=== PATIENT | male | born 1955 | race Caucasian/White ===

== ENCOUNTER 2017-02-05 01:10 | Emergency (ER) | payer OTHER ==
[~2017-02-05] VITALS: Ht 165.1 cm; Wt 68.2 kg
[~2017-02-05 01:10] MED LIST: ATEN-175 PO; CYAN1CAP3 PO; DOXA-10 PO; FLUO0.059 TOP; FLUT1POW8 NAE; NAPR-1169 PO; TGR200 PO
[2017-02-05 01:17] VITALS: TEMP 36.6; Ht 165.1 cm; Wt 68.2 kg
[2017-02-05] MEDS ORDERED: ONDANSETRON INJ 2 MG/ML 2 ML VIAL IV STA ×2 (01:44→03:47)
[2017-02-05] MEDS ORDERED: MoRPHine SULFATE 4 MG/ML 1 ML CARP\\VIAL IV PRN (01:45)
[2017-02-05] MEDS ORDERED: SODIUM CHLORIDE 0.9% 1000ML 1,000 ML IV ONE (01:45)
[2017-02-05] MEDS ORDERED: OPTIRAY 320 IV PRN (02:00)
[2017-02-05 02:17] LABS: BASO % 0.1 %; BASO ABS # 0.01 K/uL (0-0.2); COMPLETE YES; EOS % 0.7 %; HEMATOCRIT 38.4 % (42-52); IG% 0.1 %; LYMPH % 17.8 %; MEAN CELL VOLUME 87.9 fL (80-100); MEAN CORPUSCULAR HEMOGLOBIN 30.4 pg (25-34); MEAN CORPUSCULAR HGB CONC 34.6 g/dl (32-36); MEAN PLATELET VOLUME 8.5 fL (7.4-10.4); NEUT % 75.3 %; PLATELET COUNT 249 K/uL (130-400); RED BLOOD COUNT 4.37 M/uL (4.7-6.1); WHITE BLOOD COUNT 7.32 K/uL (4.8-10.8)
[2017-02-05 02:18] LABS: URINE APPEARANCE CLOUDY (CLEAR); URINE BILIRUBIN NEG (NEG); URINE COLOR YELLOW; URINE EPITHELIAL CELL AUTO 0-5 /lpf (0-5); URINE NITRITE NEG (NEG); URINE PH >= 9.0 (4.5-7.5); URINE SPECIFIC GRAVITY 1.021 (1.000-1.030); UROBILINOGEN NEG (NEG); ZZUR CULT IF INDIC CLEAN CATCH NO
[2017-02-05 02:24] LABS: MANUAL MICROSCOPIC REQUIRED? NO; REVIEW REQ? NO
[2017-02-05 02:39] LABS: BUN/CREATININE RATIO 22.6 (10-20); CALCIUM 8.7 mg/dl (8.5-10.1); CREATININE 0.63 mg/dl (0.60-1.40); POTASSIUM 3.9 mmol/L (3.5-5.1)
[2017-02-05 02:42] LABS: ALB/GLOB RATIO 1.2 (0.9-2)
[2017-02-05] MEDS ORDERED: ONDANSETRON INJ 2 MG/ML 2 ML VIAL ONE (03:48)
[2017-02-05] MEDS ORDERED: FEXO1TAB49 PO (04:42)
[2017-02-05] MEDS ORDERED: ZNTT/150 PO (04:42)
[2017-02-05] MEDS ORDERED: FLNIN/ NAE (04:45)
[2017-02-05 06:00] VITALS: BP 147/78; PULSE 70; O2SAT 95
[2017-02-05] MEDS ORDERED: NORCO 5/325MG HOME PACK PO ONE (06:15)
[2017-02-05] MEDS ORDERED: ONDANSETRON HOME PACK 4MG OD TAB PO ONE (06:15)
--- NOTE | 2017-02-05 09:32 | DIAGNOSTIC IMAGING REPORT ---
CT OF THE ABDOMEN AND PELVIS WITH CONTRAST CLINICAL HISTORY: Periumbilical abdominal pain. COMPARISON STUDY: None. TECHNIQUE: Following IV administration of 93 mL of Optiray-320, axial images of the abdomen and pelvis were obtained from the lung bases to the proximal femurs. Images were reviewed in the axial, sagittal, and coronal planes. IV contrast was administered without complication. A dose lowering technique was utilized adhering to the principles of ALARA. CT DOSE: 299.80 mGy.cm FINDINGS: The liver, spleen, adrenal glands, left kidney and pancreas are normal. There is no biliary or pancreatic ductal dilatation. Note is made of a 3.5 cm cyst within the mid aspect of the right renal collecting system. There is no hydronephrosis. The appendix is not visualized. The prostate is markedly enlarged and indents the base of the bladder. There is mild distention of the bladder with mild bladder wall thickening. There is no evidence for a bowel obstruction. Caliber and wall thickness of small and large bowel are normal. No suspicious osseous lesions are present. There is grade I/II anterolisthesis of L5 on S1 due to bilateral L5 pars defects. IMPRESSION: 1. No acute process within the abdomen or pelvis. 2. Marked enlargement of the prostate which indents the base of the bladder. Mild bladder distention and bladder wall thickening which can be correlated with urinalysis. Electronically signed by: Evens Armstrong M.D. 02/05/2017 9:31 AM Dictated Date/Time: 02/05/2017 9:27 AM
--- NOTE | 2017-02-06 03:01 | EMERGENCY ROOM VISIT NOTE ---
History First contact with patient: : Chief Complaint: GI ASSESSMENT Stated Complaint: VOMITING,DIARRHEA,HIGH BLOOD PRESSURE,SHAKING Nursing Triage Summary: pt here with son as retail assistant, denies need to retail assistant pad. son translates that pt began with abd pain yesterday AM, pain intermittent, pt eventually began to have vomiting and diarrhea. History of Present Illness The patient is a 61 year old male who presents to the Emergency Room with complaints of generalized periumbilical abdominal pain that began worsening about 18 hours ago. The patient states the pain is intermittent and developed into nausea and vomiting. The patient has not had diarrhea or constipation. He is accompanied to the department today with his son who is acting as the retail assistant. The patient has not had fever or chills at home. He does have a history of enlarged prostate but is otherwise healthy. He believes he has been urinating as normal. The patient rates his discomfort a 9/10. No history of abdominal surgery. Review of Systems More than 10 systems were reviewed and otherwise negative with the exception of history of present illness. Past Medical/Surgical History Medical Problems: (1) Hypertension (2) Seizures Family History Cancer Heart disease Hypertension Seizures Social History Smoking Status: Never Smoker Alcohol Use: none Drug Use: none Marital Status: Housing Status: lives with family Occupation Status: unemployed Current/Historical Medications Scheduled Atenolol (Tenormin), 100 MG PO DAILY Carbamazepine (Carbamazepine), 300 MG PO TID Cyanocobalamin (B-12), 1,000 MCG PO DAILY Doxazosin Mesylate (Doxazosin Mesylate), 8 MG PO HS Fluticasone Propionate (Fluticasone Propionate), 2 SPRAYS SHANELLE BID Ranitidine (Zantac), 150 MG PO DAILY Scheduled PRN Fexofenadine Hcl (Erinn Allergy), 180 MG PO DAILY PRN for ALLERGIC REACTION Naproxen (Naprosyn), 500 MG PO BID PRN for Pain Physical Exam Vital Signs Date Time Temp Pulse Resp B/P (MAP) Pulse Ox O2 Delivery O2 Flow Rate FiO2 02/05/17 06:00 70 18 147/78 95 Room Air 02/05/17 04:00 69 18 137/73 95 Room Air 02/05/17 03:00 69 18 145/82 96 Room Air 02/05/17 02:31 79 18 161/87 95 Room Air 02/05/17 01:17 36.6 73 20 141/82 99 Room Air Pain Rating (0-10): 0 Physical Exam VITALS: Vitals are noted on the nurse's note and reviewed by myself. Vital signs stable. GENERAL: Well-developed, well-nourished, white male, who is in no acute distress and resting comfortably. Patient is cooperative with the examination. HEAD: Normocephalic atraumatic. HEART: Regular rate and rhythm without murmurs gallops or rubs. LUNGS: Clear to auscultation bilaterally without wheezes, rales or rhonchi. No retractions or accessory muscle use. ABDOMEN: Positive normal bowel sounds x 4. Soft with generalized midabdominal tenderness on palpation. No distinct point tenderness. No rebound or guarding. No CVA tenderness. MUSCULOSKELETAL: No muscle atrophy, erythema, or edema noted. Full range of motion without joint tenderness in all extremities. Medical Decision & Procedures ER Provider Diagnostic Interpretation: CT OF THE ABDOMEN AND PELVIS WITH CONTRAST CLINICAL HISTORY: Periumbilical abdominal pain. COMPARISON STUDY: None. TECHNIQUE: Following IV administration of 93 mL of Optiray-320, axial images of the abdomen and pelvis were obtained from the lung bases to the proximal femurs. Images were reviewed in the axial, sagittal, and coronal planes. IV contrast was administered without complication. A dose lowering technique was utilized adhering to the principles of ALARA. CT DOSE: 299.80 mGy.cm FINDINGS: The liver, spleen, adrenal glands, left kidney and pancreas are normal. There is no biliary or pancreatic ductal dilatation. Note is made of a 3.5 cm cyst within the mid aspect of the right renal collecting system. There is no hydronephrosis. The appendix is not visualized. The prostate is markedly enlarged and indents the base of the bladder. There is mild distention of the bladder with mild bladder wall thickening. There is no evidence for a bowel obstruction. Caliber and wall thickness of small and large bowel are normal. No suspicious osseous lesions are present. There is grade I/II anterolisthesis of L5 on S1 due to bilateral L5 pars defects. IMPRESSION: 1. No acute process within the abdomen or pelvis. 2. Marked enlargement of the prostate which indents the base of the bladder. Mild bladder distention and bladder wall thickening which can be correlated with urinalysis. Laboratory Results 02/05/17 02:06 Red Blood Count 4.37, Mean Corpuscular Volume 87.9, Mean Corpuscular Hemoglobin 30.4, Mean Corpuscular Hemoglobin Concent 34.6, Mean Platelet Volume 8.5, Neutrophils (%) (Auto) 75.3, Lymphocytes (%) (Auto) 17.8, Monocytes (%) (Auto) 6.0, Eosinophils (%) (Auto) 0.7, Basophils (%) (Auto) 0.1, Neutrophils # (Auto) 5.51, Lymphocytes # (Auto) 1.30, Monocytes # (Auto) 0.44, Eosinophils # (Auto) 0.05, Basophils # (Auto) 0.01 02/05/17 02:06 Test 02/05/17 02:00 02/05/17 02:06 Urine Color YELLOW Urine Appearance CLOUDY (CLEAR) Urine pH >= 9.0 (4.5-7.5) Urine Specific [place] 1.021 (1.000-1.030) Urine Protein NEG (NEG) Urine Glucose (UA) NEG (NEG) Urine Ketones NEG (NEG) Urine Occult Blood NEG (NEG) Urine Nitrite NEG (NEG) Urine Bilirubin NEG (NEG) Urine Urobilinogen NEG (NEG) Urine Leukocyte Esterase NEG (NEG) Urine WBC (Auto) 0 /hpf (0-5) Urine RBC (Auto) 0-4 /hpf (0-4) Urine Hyaline Casts (Auto) 0 /lpf (0-5) Urine Epithelial Cells (Auto) 0-5 /lpf (0-5) Urine Bacteria (Auto) NEG (NEG) White Blood Count 7.32 K/uL (4.8-10.8) Red Blood Count 4.37 M/uL (4.7-6.1) Hemoglobin 13.3 g/dL (14.0-18.0) Hematocrit 38.4 % (42-52) Mean Corpuscular Volume 87.9 fL (80-100) Mean Corpuscular Hemoglobin 30.4 pg (25-34) Mean Corpuscular Hemoglobin Concent 34.6 g/dl (32-36) Platelet Count 249 K/uL (130-400) Mean Platelet Volume 8.5 fL (7.4-10.4) Neutrophils (%) (Auto) 75.3 % Lymphocytes (%) (Auto) 17.8 % Monocytes (%) (Auto) 6.0 % Eosinophils (%) (Auto) 0.7 % Basophils (%) (Auto) 0.1 % Neutrophils # (Auto) 5.51 K/uL (1.4-6.5) Lymphocytes # (Auto) 1.30 K/uL (1.2-3.4) Monocytes # (Auto) 0.44 K/uL (0.11-0.59) Eosinophils # (Auto) 0.05 K/uL (0-0.5) Basophils # (Auto) 0.01 K/uL (0-0.2) RDW Standard Deviation 41.2 fL (36.4-46.3) RDW Coefficient of Variation 12.8 % (11.5-14.5) Immature Granulocyte % (Auto) 0.1 % Immature Granulocyte # (Auto) 0.01 K/uL (0.00-0.02) Anion Gap 6.0 mmol/L (3-11) Est Creatinine Clear Calc Drug Dose 105.8 ml/min Estimated GFR () 122.4 Estimated GFR (Non- 105.6 BUN/Creatinine Ratio 22.6 (10-20) Calcium Level 8.7 mg/dl (8.5-10.1) Total Bilirubin 0.3 mg/dl (0.2-1) Aspartate Amino Transf (AST/SGOT) 12 U/L (15-37) Alanine Aminotransferase (ALT/SGPT) 18 U/L (12-78) Alkaline Phosphatase 100 U/L (45-117) Total Protein 7.2 gm/dl (6.4-8.2) Albumin 3.9 gm/dl (3.4-5.0) Globulin 3.3 gm/dl (2.5-4.0) Albumin/Globulin Ratio 1.2 (0.9-2) Lipase 244 U/L (73-393) Medications Administered Medications (Trade) Dose Ordered Sig/Debbie Route Start Time Stop Time Status Last Admin Dose Admin Morphine Sulfate (MoRPHine SULFATE INJ) 4 mg Q1H PRN IV 02/05/17 01:45 02/05/17 06:36 DC 02/05/17 02:28 4 MG Sodium Chloride 1,000 ml @ 999 mls/hr Q1H1M ONCE IV 02/05/17 01:45 02/05/17 02:45 DC 02/05/17 02:27 999 MLS/HR Ondansetron HCl (Zofran Inj) 4 mg NOW STAT IV 02/05/17 01:44 02/05/17 01:46 DC 02/05/17 02:27 4 MG Ondansetron HCl (Zofran Inj) 4 mg STK-MED ONCE .ROUTE 02/05/17 03:48 02/05/17 03:49 DC 02/05/17 03:51 4 MG Acetaminophen/ Hydrocodone Bitart ([place] 5/325mg Home Pack) 1 homepack UD ONCE PO 02/05/17 06:15 02/05/17 06:16 DC 02/05/17 06:14 1 HOMEPACK Ondansetron HCl (ZOFRAN ODT 4MG Home Pack) 1 homepack UD ONCE PO 02/05/17 06:15 02/05/17 06:16 DC 02/05/17 06:14 1 HOMEPACK ED Course Physical exam and history were performed. Nursing notes, EMR, and Medication List were personally reviewed. Patient appears to have abdominal pain with nausea and vomiting. The patient does have some generalized periumbilical abdominal tenderness on examination. IV access was established and labs were obtained. The patient was hydrated and medicated as above. CT scan was performed because of the patient's reproducible tenderness of the abdomen. The patient's blood work is as above and was reviewed. He does not have significant elevated white blood cell count, worsening anemia, bandemia, or significant electrolyte imbalance. Lipase and transaminases were nondiagnostic. Urine is without obvious signs of infection. The patient CT scan is as above and does not show significant intra-abdominal process. He does have an enlarged prostate and may have some urinary retention. The patient underwent bladder scan which showed a post voiding residual of greater than 340 ML's. As this could be contributed to the patient's discomfort I did ask nursing to perform a straight cath. This was performed and right around 200 ML's of urine was collected. This did not improve or worsen in the patient's discomfort. Overall the patient had significant improvement of his discomfort after the above interventions. Considering that he has normal labs and a normal CT scan I suspect that his symptoms may be viral or foodborne in nature. I will give the patient a small amount of Vicodin and Zofran to help with his symptoms. The patient will need to follow with his primary care physician for further care and management. I also recommended that he follow with his urologist regarding his enlarged prostate. The patient was pleased with this plan and was comfortable with discharge home. He will return with any worsening symptoms. He rated his discomfort a 0/10 at the time of departure. The chart was completed utilizing [employer] Speech Voice Recognition Software. Grammatical errors, random word insertions, pronoun errors, and incomplete sentences are an occasional consequence of this system due to software limitations, ambient noise, and hardware issues. Any formal questions or concerns about the content, text, or information contained within the body of this dictation should be directly addressed to the provider for clarification. . Medical Decision Differential diagnosis: Etiologies such as appendicitis, diverticulitis, PUD, biliary pathology, UTI, pancreatitis, obstruction, mesenteric ischemia, aortic pathology, infections, inflammatory bowel disease, renal colic, as well as others were entertained. Medication Reconcilliation Current Medication List: was personally reviewed by me Blood Pressure Screening Patient's blood pressure: Normal blood pressure Impression Primary Impression: Nausea and vomiting Additional Impressions: Enlarged prostate Abdominal pain Departure Information Dispostion Home / Self-Care Condition GOOD Forms HOME CARE DOCUMENTATION FORM, IMPORTANT VISIT INFORMATION Patient Instructions My [facility] Additional Instructions You were seen and evaluated today on an emergency basis only. This is not a substitute for, or an effort to provide, complete comprehensive medical care. It is not possible to recognize and treat all injuries or illnesses in a single emergency department visit. For this reason it is recommended that you followup with both your primary care physician and your urologist next week for ongoing care and evaluation. Call today to help schedule your appointments. Drink plenty of fluids and remain well hydrated. [place] (hydrocodone/acetaminophen) 5/325 mg (homepack) ONE pill by mouth every 6 hours as needed for worsening breakthrough pain. Do not drink or drive on [place]. This medication will likely make you tired. Do not take [place] and Tylenol at the same time as both contain acetaminophen. [place] may cause constipation. You may wish to take an [id number] stool softener like Colace if this occurs. Zofran 1 tablet every 6 hrs as needed for nausea. You are welcome to return to the emergency department anytime with new, worsening, or concerning symptoms. Problem Qualifiers
== END 2017-02-05 06:17 | disposition home or self-care (01) ==
LOC: C.EDB 01:12
DX: R11.2 Nausea with vomiting, unspecified (principal); N40.0 Benign prostatic hyperplasia without lower urinary tract symptoms; R10.33 Periumbilical pain; I10 Essential (primary) hypertension; Z86.69 Personal history of other diseases of the nervous system and sense organs; Z82.49 Family history of ischemic heart disease and other diseases of the circulatory system; Z82.0 Family history of epilepsy and other diseases of the nervous system; Z79.899 Other long term (current) drug therapy

== ENCOUNTER 2017-08-02 16:11 | Emergency (ER) | payer OTHER ==
[~2017-08-02] VITALS: Ht 165.1 cm; Wt 67.0 kg
[~2017-08-02 16:11] MED LIST changes: +FEXO1TAB49 PO; +FLNIN/ NAE; -FLUO0.059 TOP; -FLUT1POW8 NAE; +ZNTT/150 PO
[2017-08-02 16:13] VITALS: TEMP 36.6; Ht 165.1 cm; Wt 67.0 kg
[2017-08-02] MEDS ORDERED: CIPROFLOXACIN 500 MG TAB PO STA (17:57)
[2017-08-02] MEDS ORDERED: TAMSULOSIN HCL 0.4 MG CAP PO ONE (18:00)
[2017-08-02] MEDS ORDERED: CIPR-255 PO (18:04)
[2017-08-02 18:20] VITALS: BP 162/88; PULSE 76; O2SAT 98
--- NOTE | 2017-08-02 19:50 | EMERGENCY ROOM VISIT NOTE ---
History Report prepared by Jo: Genaro Denny Under the Supervision of: Dr. Nahun Lima D.O. First contact with patient: 16:16 Chief Complaint: URINARY SYMPTOMS Stated Complaint: URINARY PROBLEMS History of Present Illness The patient is a 62 year old male who presents to the Emergency Room with complaints of persistent difficulty with urination beginning 12.5 hours ago. History obtained via hasher operator (patient's son). He was able to void a very small amount just prior to arrival. He has a history of urinary retention. The patient has not noticed any blood in his urine. He is currently on Prednisone and an antibiotic for a cough. He has not taken any over the counter medications recently. Pt denies abdominal pain, headache, change in vision, fevers, chest pain, shortness of breath, nausea, vomiting, diarrhea, pain with urination, and melena. Source of History: patient Onset: 12.5 hours ago Quality: other (difficulty with urination) Timing: other (persistent) Associated Symptoms: + cough, No fevers, No headache, No chest pain, No SOB , No nausea, No vomiting, No abdominal pain, No melena, No diarrhea Review of Systems See HPI for pertinent positives & negatives. A total of 10 systems reviewed and were otherwise negative. Past Medical & Surgical Medical Problems: (1) Hypertension (2) Seizures Family History Cancer Heart disease Hypertension Seizures Social History Smoking Status: Never Smoker Alcohol Use: none Drug Use: none Marital Status: Housing Status: lives with family Occupation Status: unemployed Current/Historical Medications Scheduled Atenolol (Tenormin), 100 MG PO DAILY Carbamazepine (Carbamazepine), 300 MG PO TID Ciprofloxacin Hcl (Cipro), 500 MG PO BID Cyanocobalamin (B-12), 1,000 MCG PO DAILY Doxazosin Mesylate (Doxazosin Mesylate), 8 MG PO HS Fluticasone Propionate (Fluticasone Propionate), 2 SPRAYS SHANELLE BID Ranitidine (Zantac), 150 MG PO DAILY Scheduled PRN Fexofenadine Hcl (Erinn Allergy), 180 MG PO DAILY PRN for ALLERGIC REACTION Naproxen (Naprosyn), 500 MG PO BID PRN for Pain Allergies Coded Allergies: [place] (Verified Allergy, Unknown, ORANGE JUICE, 08/02/17) Physical Exam Vital Signs Date Time Temp Pulse Resp B/P (MAP) Pulse Ox O2 Delivery O2 Flow Rate FiO2 1/16/18 18:20 76 20 162/88 98 Room Air 08/02/17 17:30 74 16 168/90 97 Room Air 08/02/17 16:13 36.6 75 18 151/88 97 Room Air Physical Exam GENERAL: Sitting up in bed, alert, well appearing, well nourished, no distress, non-toxic EYE EXAM: normal conjunctiva. OROPHARYNX: no exudate, no erythema, lips, buccal mucosa, and tongue normal and mucous membranes are moist NECK: supple, no nuchal rigidity, no adenopathy, non-tender LUNGS: Clear to auscultation. Normal chest wall mechanics HEART: no murmurs, S1 normal and S2 normal ABDOMEN: abdomen soft, non-tender, normo-active bowel sounds, no masses, no rebound or guarding. SKIN: no rashes and no bruising UPPER EXTREMITIES: upper extremities are grossly normal. LOWER EXTREMITIES: No pitting edema. NEURO EXAM: Normal sensorium, cranial nerves II-XII grossly intact, normal speech, no gross weakness of arms, no gross weakness of legs. Medical Decision & Procedures Laboratory Results Test 08/02/17 17:01 Urine Color YELLOW Urine Appearance CLEAR (CLEAR) Urine pH 8.5 (4.5-7.5) Urine Specific [place] 1.010 (1.000-1.030) Urine Protein NEG (NEG) Urine Glucose (UA) NEG (NEG) Urine Ketones NEG (NEG) Urine Occult Blood NEG (NEG) Urine Nitrite NEG (NEG) Urine Bilirubin NEG (NEG) Urine Urobilinogen NEG (NEG) Urine Leukocyte Esterase NEG (NEG) Urine WBC (Auto) 0 /hpf (0-5) Urine RBC (Auto) 0-4 /hpf (0-4) Urine Hyaline Casts (Auto) 0 /lpf (0-5) Urine Epithelial Cells (Auto) 0-5 /lpf (0-5) Urine Bacteria (Auto) NEG (NEG) Laboratory results per my review. Medications Administered Medications (Trade) Dose Ordered Sig/Debbie Route Start Time Stop Time Status Last Admin Dose Admin Ciprofloxacin (Cipro Tab) 500 mg NOW STAT PO 08/02/17 17:57 08/02/17 17:58 DC 08/02/17 18:16 500 MG ED Course ED COURSE: Vital signs were reviewed and showed hypertension The patients medical record was reviewed The above diagnostic studies were performed and reviewed. ED treatments and interventions as stated above. 1620: The patient was evaluated in room A10. A complete history and physical examination was performed. 1630: Bladder scan reveals 330 mL of urine. 1757: Ordered Cipro Tab 500 mg PO. 1800: Ordered Flomax Cap 0.4 mg PO. 1805: Upon reevaluation, the patient is resting comfortably. I discussed my findings with the patient and he understands and agrees with the treatment plan. Based on the patients age, coexisting illnesses, exam and lab findings the decision to treat as an outpatient was made. The patient remained stable while under my care. The patient appeared well at the time of discharge. Medical Decision Differential diagnoses includes but is not limited to gastritis, peptic ulcer disease, GERD, gallbladder disease, pancreatitis, small bowel obstruction, acute coronary syndrome, pericarditis, ischemic bowel, irritable bowel disease, irritable bowel syndrome, appendicitis, diverticulitis, malignancy, hernia, urinary tract infection, torsion, perforation, trauma, infectious. Patient is a 62-year-old male who presents to ER with urinary urgency with inability to void. History of urinary retention. Does follow with urology. Recently taking [id number] medications for an upper esterase infection. Bladder scan shows 350 mL's. Bonilla placed for 400 mL's. Patient was given a dose Cipro. He already takes doxazosin. Patient was updated through his son. He had relief of symptoms with Bonilla. He was discharged with Cipro and instructed to continue his doxazosin. I did discuss with urology to have him followed up. He'll call the office tomorrow to get a follow-up within the next 48 hours. Strict instructions a stopped taking any [id number] medications. Discussed with Pt concerning signs and symptoms to watch out for. Pt was instructed to follow up with their PCP and discussed with the patient their option to return to the ED at anytime for persistent or worsening symptoms. The appropriate anticipatory guidance and out-patient management, including indications for return to the emergency department, were explained at length to the patient and understood. Medication Reconcilliation Current Medication List: was personally reviewed by me Blood Pressure Screening Patient's blood pressure: Elevated blood pressure Blood pressure disposition: Elevated BP felt to be situational Impression Primary Impression: Urinary retention Scribe Attestation The scribe's documentation has been prepared under my direction and personally reviewed by me in its entirety. I confirm that the note above accurately reflects all work, treatment, procedures, and medical decision making performed by me. Departure Information Dispostion Home / Self-Care Prescriptions Ciprofloxacin Hcl (CIPRO) 500 Mg Tab 500 MG PO BID, #6 TAB Prov: LimaNahun, DO 08/02/17 Referrals Hermann Berger D.O. (PCP) Forms HOME CARE DOCUMENTATION FORM, IMPORTANT VISIT INFORMATION Patient Instructions ED Retention Urinary Male, My [facility] Additional Instructions Please follow up with your primary care doctor with in the next 24 hours. Any worsening of your symptoms, please return to the ED immediately. This includes any fevers greater than 100.4, worsening pain, persistent nausea, vomiting, unable to eat or drink, or any other concerning signs or symptoms from your standpoint. Please call urology tomorrow morning to set up an appointment within the next 2- 3 days. Please let them know that he has urinary retention and a Bonilla catheter which was placed in the ER. Please take antibiotics as prescribed. Please take your nighttime medication as previously prescribed Please stop taking NyQuil/DayQuil or any other [id number]-gra-[id number] medications.
== END 2017-08-02 18:34 | disposition home or self-care (01) ==
LOC: C.EDB 16:12 → C.EDA 18:34
DX: R33.9 Retention of urine, unspecified (principal); I10 Essential (primary) hypertension; Z79.51 Long term (current) use of inhaled steroids; Z82.49 Family history of ischemic heart disease and other diseases of the circulatory system; Z82.0 Family history of epilepsy and other diseases of the nervous system

== ENCOUNTER 2017-08-04 15:15 | Emergency (ER) | payer SELFPAY ==
[~2017-08-04] VITALS: Ht 160 cm; Wt 64.0 kg
[~2017-08-04 15:15] MED LIST changes: +CIPR-255 PO
[2017-08-04 15:17] VITALS: BP 147/77; PULSE 76; TEMP 36.3; O2SAT 100; Ht 160 cm; Wt 64.0 kg
== END 2017-08-04 16:04 | disposition left against medical advice (07) ==
LOC: C.EDB 15:17
DX: R05 Cough (principal)

== ENCOUNTER 2017-08-09 22:31 | Emergency (ER) | payer OTHER ==
[~2017-08-09] VITALS: Ht 165.1 cm; Wt 65.8 kg
[2017-08-09 22:33] VITALS: TEMP 36.9; Ht 165.1 cm; Wt 65.8 kg
[2017-08-09] MEDS ORDERED: LIDOCAINE HCL 2% JELLY 30 ML TUBE EXT ONE (22:45)
[2017-08-09] MEDS ORDERED: CARB200T PO ×2 (23:05)
[2017-08-09] MEDS ORDERED: PRLSR20 PO (23:07)
[2017-08-09] MEDS ORDERED: IBUP-1449 PO (23:11)
[2017-08-09] MEDS ORDERED: CLON0.5T3 PO (23:11)
[2017-08-09] MEDS ORDERED: ASPI-435 PO (23:12)
[2017-08-09 23:41] VITALS: BP 141/79; PULSE 78; O2SAT 99
--- NOTE | 2017-08-10 00:26 | EMERGENCY ROOM VISIT NOTE ---
History First contact with patient: 22:36 Chief Complaint: UNABLE TO VOID Stated Complaint: TROUBLE URINATING, DRIPPING, PROSTATE PROBLEM Nursing Triage Summary: son reports that pt has been having trouble urinating and has prostate problems. pt was here last week and had a catheter that was removed today by urology. pt voided at the doctors and then after that he was unable to void. pt does not speak indonesian- son translating in triage. History of Present Illness The patient is a 62 year old male who presents to the Emergency Room with complaints of unable to urinate since this afternoon with his Bonilla catheter was removed. Patient had a Bonilla catheter placed a few days ago for urinary retention. He has an enlarged prostate. Patient states the nurse at the urology office remove the Bonilla catheter. Since then he has not been able to urinate. He sees Dr. Whitney. Patient denies chest pain, dyspnea, fever, chills, back pain, abdominal pain. He is tolerating by mouth fluids and food. The son is translating per the patient's request. Review of Systems See HPI for pertinent positives & negatives. A total of 10 systems reviewed and were otherwise negative. Past Medical/Surgical History Medical Problems: (1) Hypertension (2) Seizures Family History Cancer Heart disease Hypertension Seizures Social History Smoking Status: Never Smoker Alcohol Use: none Drug Use: none Marital Status: Housing Status: lives with family Occupation Status: unemployed Current/Historical Medications Scheduled Aspirin (Aspirin 81), 81 MG PO DAILY Atenolol (Tenormin), 100 MG PO DAILY Carbamazepine (Carbamazepine), 300 MG PO afternoon & evening Carbamazepine (Tegretol), 400 MG PO QAM Ciprofloxacin Hcl (Cipro), 500 MG PO BID Clonazepam (Klonopin), 0.5 MG PO HS Cyanocobalamin (B-12), 1,000 MCG PO DAILY Doxazosin Mesylate (Doxazosin Mesylate), 8 MG PO HS Fluticasone Propionate (Fluticasone Propionate), 2 SPRAYS SHANELLE BID Naproxen (Naprosyn), 500 MG PO BID Omeprazole (Prilosec), 20 MG PO QAM Ranitidine (Zantac), 150 MG PO DAILY Scheduled PRN Ibuprofen Tab (Motrin), 400 MG PO Q6 PRN for Pain Physical Exam Vital Signs Date Time Temp Pulse Resp B/P (MAP) Pulse Ox O2 Delivery O2 Flow Rate FiO2 08/09/17 23:41 78 20 141/79 99 Room Air 08/09/17 22:33 36.9 82 20 158/77 99 Room Air Physical Exam VITALS: Vitals are noted on the nurse's note and reviewed by myself. Vital signs stable. GENERAL: Pleasant male, in no acute distress, nondiaphoretic, well-developed well-nourished. SKIN: Capillary reflex less than 2 seconds. HEENT: Normocephalic. PERRLA. EOMI. Nares patent. Mucous membranes moist. Neck is supple without nuchal rigidity. HEART: Regular rate and rhythm LUNGS: Clear to auscultation bilaterally without wheezes, rales or rhonchi. No retractions or accessory muscle use. ABDOMEN: Positive bowel sounds x 4. Normal tympanic percussion. Soft, distended bladder, no CVA tenderness, nontender, without masses or organomegaly. Wilson sign negative. No guarding or rebound tenderness. MUSCULOSKELETAL: No gross musculoskeletal defects. No pedal edema. No calf tenderness. NEURO: Patient was alert and oriented to person place and time. Normal sensation to light and sharp touch. No focal neurological deficits. Medical Decision & Procedures Laboratory Results Test 08/09/17 23:00 Urine Color YELLOW Urine Appearance CLEAR (CLEAR) Urine pH 7.0 (4.5-7.5) Urine Specific [place] 1.015 (1.000-1.030) Urine Protein NEG (NEG) Urine Glucose (UA) NEG (NEG) Urine Ketones NEG (NEG) Urine Occult Blood TRACE (NEG) Urine Nitrite NEG (NEG) Urine Bilirubin NEG (NEG) Urine Urobilinogen NEG (NEG) Urine Leukocyte Esterase NEG (NEG) Urine WBC (Auto) 1-5 /hpf (0-5) Urine RBC (Auto) 5-10 /hpf (0-4) Urine Hyaline Casts (Auto) 1-5 /lpf (0-5) Urine Epithelial Cells (Auto) 0-5 /lpf (0-5) Urine Bacteria (Auto) NEG (NEG) Medications Administered Medications (Trade) Dose Ordered Sig/Debbie Route Start Time Stop Time Status Last Admin Dose Admin Lidocaine HCl (Xylocaine Jelly 2%) 30 ml NOW ONCE EXT 08/09/17 22:45 08/09/17 22:46 DC 08/09/17 22:55 30 ML ED Course Prior records reviewed and summarized as above. Triage Nursing notes reviewed. Additional history obtained from family The patient's history was concerning for unable to urinate Differential diagnosis: Etiologies such as urinary retention, UTI, renal colic, obstruction, as well as others were entertained.. Physical examination: The physical examination was consistent with urinary retention ER treatment provided: Bladder scan greater than 300 post void and Bonilla catheter was placed On reassessment the patient felt better. Diagnostics interpreted by me: The labs revealed urine without signs of infection This appears to be urinary retention. This Is a recurrent problem for this patient. He was advised to follow-up with his urologist in the next few days or here in the ER sooner for problems a Bonilla catheter, fevers, pain, worsening signs or symptoms or as needed. By the evaluation outlined above emergent etiologies such as renal colic, UTI, as well as others were deemed relatively unlikely. The pt informed about the findings as listed above. All questions were answered and pleased with the treatment. Return instructions were outlined and the patient was discharged in stable condition. Referral: The patient was referred back to his urologist for follow-up in 2 to 3 days for a recheck of the current condition. Medical Decision As above Medication Reconcilliation Current Medication List: was personally reviewed by me Blood Pressure Screening Patient's blood pressure: Normal blood pressure Impression Primary Impression: Urinary retention Departure Information Dispostion Home / Self-Care Condition GOOD Referrals Hermann Berger D.O. (PCP) Forms WORK / SCHOOL INSTRUCTIONS, HOME CARE DOCUMENTATION FORM, IMPORTANT VISIT INFORMATION Patient Instructions [facility], ED Catheter Care Bonilla Additional Instructions Frequently empty out Bonilla catheter bag. Rest and drink plenty of fluids as tolerated. Continue current medications. Return to the ER immediately for Bonilla catheter problems, abdominal pain, vomiting, fevers, chest pains, difficulty breathing, worsening of your condition , or as needed. Follow up with your urologist in 2-3 days for a recheck of your current condition.
== END 2017-08-09 23:46 | disposition home or self-care (01) ==
LOC: C.EDB 22:33
DX: R33.9 Retention of urine, unspecified (principal); I10 Essential (primary) hypertension; R56.9 Unspecified convulsions; Z80.9 Family history of malignant neoplasm, unspecified; Z82.49 Family history of ischemic heart disease and other diseases of the circulatory system; Z79.82 Long term (current) use of aspirin; Z79.899 Other long term (current) drug therapy

== ENCOUNTER 2017-09-02 22:47 | Emergency (ER) | payer OTHER ==
[~2017-09-02] VITALS: Ht 162.6 cm; Wt 64.2 kg
[~2017-09-02 22:47] MED LIST changes: +ASPI-435 PO; +CARB200T PO; +CLON0.5T3 PO; -FEXO1TAB49 PO; +IBUP-1449 PO; +PRLSR20 PO; +RANI150T85 PO; -ZNTT/150 PO
[2017-09-02 22:53] VITALS: TEMP 36.8; Ht 162.6 cm; Wt 64.2 kg
--- NOTE | 2017-09-02 23:33 | EMERGENCY ROOM VISIT NOTE ---
History Report prepared by Jo: Jorge Kang Under the Supervision of: Dr. Adamaris Bailey D.O. First contact with patient: 23:04 Chief Complaint: UNABLE TO VOID Stated Complaint: CAN'T URINATE Nursing Triage Summary: Pt does not speak Azeri. interprets. reports pt has an enlarged prostate and had poe catheter for 3 weeks. Pt had catheter removed at 2pm at urologist. Pt has not been able to void since. History of Present Illness The patient is a 62 year old male who presents to the Emergency Room with complaints of constant inability to urinate that began 9 hours ago. Patient is present with his who is acting as his locker room attendant. states that the patient had a Peo catheter removed 9 hours ago. She adds that the patient has an enlarged prostate. states that the patient's urologist is Dr. Whitney. denies that patient having diarrhea, vomiting, fevers, body aches, or constipation. states that patient was in the ER 3 weeks ago. Source of History: patient, family () Onset: 9 hours ago Timing: constant Associated Symptoms: No fevers, No vomiting, No diarrhea Note: Patient denies constipation and body aches. Review of Systems See HPI for pertinent positives & negatives. A total of 10 systems reviewed and were otherwise negative. Past Medical & Surgical Medical Problems: (1) Hypertension (2) Seizures Family History Cancer Heart disease Hypertension Seizures Social History Smoking Status: Never Smoker Alcohol Use: none Drug Use: none Marital Status: Housing Status: lives with family Occupation Status: unemployed Current/Historical Medications Scheduled Aspirin (Aspirin 81), 81 MG PO DAILY Atenolol (Tenormin), 100 MG PO DAILY Carbamazepine (Carbamazepine), 300 MG PO afternoon & evening Carbamazepine (Tegretol), 400 MG PO QAM Cyanocobalamin (B-12), 1,000 MCG PO DAILY Doxazosin Mesylate (Doxazosin Mesylate), 8 MG PO HS Finasteride (Proscar), 5 MG PO DAILY Fluticasone Propionate (Fluticasone Propionate), 2 SPRAYS SHANELLE BID Naproxen (Naprosyn), 500 MG PO BID Omeprazole (Prilosec), 20 MG PO QAM Ranitidine (Zantac), 150 MG PO DAILY Tamsulosin Hcl (Flomax), 0.4 MG PO HS Scheduled PRN Ibuprofen Tab (Motrin), 400 MG PO Q6 PRN for Pain Allergies Coded Allergies: [place] (Verified Allergy, Unknown, ORANGE JUICE, 08/09/17) Physical Exam Vital Signs Date Time Temp Pulse Resp B/P (MAP) Pulse Ox O2 Delivery O2 Flow Rate FiO2 09/03/17 00:44 70 18 142/73 94 09/02/17 22:53 36.8 75 16 150/82 98 Room Air Physical Exam HEENT: Head - normocephalic and atraumatic Pupils are equal, round, and reactive to light. Extraocular eye muscles are intact, and sclera are anicteric. Nose - moist nasal mucosa without discharge. Mouth - moist buccal mucosa. Oropharynx is nonerythematous and there is no tonsillar exudate or edema noted. Neck: Supple; no JVD, nuchal rigidity, cervical lymphadenopathy. Heart: Regular rate and rhythm. There is a normal S1 and S2 with no murmurs, clicks, or gallops appreciated. Lungs: Clear to auscultation bilaterally with no wheezes, rales, or rhonchi. Abdomen: Soft, completely nontender, with good bowel sounds. Moderate bladder distention with pain to palpation. There are no palpable pulsatile masses or hepatosplenomegaly. There is no guarding, rigidity, or rebound noted. Extremities: No evidence of cyanosis, clubbing, or edema. There are easily palpable peripheral pulses. Skin: warm and dry with good turgor and no rashes. Medical Decision & Procedures Laboratory Results 09/02/17 23:47 Test 09/02/17 23:40 09/02/17 23:47 Urine Color ORANGE Urine Appearance CLOUDY (CLEAR) Urine pH 6.0 (4.5-7.5) Urine Specific [place] 1.015 (1.000-1.030) Urine Protein NEG (NEG) Urine Glucose (UA) NEG (NEG) Urine Ketones NEG (NEG) Urine Occult Blood 3+ (NEG) Urine Nitrite NEG (NEG) Urine Bilirubin NEG (NEG) Urine Urobilinogen NEG (NEG) Urine Leukocyte Esterase SMALL (NEG) Urine WBC (Auto) 5-10 /hpf (0-5) Urine RBC (Auto) >30 /hpf (0-4) Urine Hyaline Casts (Auto) 1-5 /lpf (0-5) Urine Epithelial Cells (Auto) >30 /lpf (0-5) Urine Bacteria (Auto) NEG (NEG) Anion Gap 8.0 mmol/L (3-11) Est Creatinine Clear Calc Drug Dose 89.2 ml/min Estimated GFR () 115.7 Estimated GFR (Non- 99.9 BUN/Creatinine Ratio 21.7 (10-20) Calcium Level 8.2 mg/dl (8.5-10.1) Laboratory results per my review. Procedure A Poe catheter was placed ED Course 2319: Past medical records reviewed. The patient was evaluated in room A11. A complete history and physical exam was performed. A bladder scan was performed and found greater than 400 cc of urine. A Poe catheter was placed. 0028: Upon reevaluation, the patient is resting comfortably. I discussed findings and results with him and his . They verbalized agreement of the treatment plan. He was discharged home. Medical Decision The patient is a 62 year old male who presents to the ED with an inability to urinate. Differential diagnosis includes prostate hypertrophy, renal failure, UTI, and urinary retention. Lab results show sodium = 132, normal renal function, glucose = 130, urine 3+ blood, greater than 30 red blood cells, 5-10 white blood cell count, and small leukocyte esterase. The patient has known prostatic hypertrophy and had a Poe catheter in for 3 weeks. It was just removed earlier today to give a voiding trial. Unfortunately, the patient did not pass any significant urine on his own throughout the day today. The Poe catheter was replaced. Labs were drawn and sodium was slightly low. A urinalysis reveals no evidence of a urinary tract infection. The patient will follow up with Dr. Whitney on Tuesday. The patient was encouraged to increase fluid intake and salt intake. Medication Reconcilliation Current Medication List: was personally reviewed by me Blood Pressure Screening Patient's blood pressure: Elevated blood pressure Blood pressure disposition: Elevated BP felt to be situational Impression Primary Impression: Hyponatremia Additional Impression: Urinary retention Scribe Attestation The scribe's documentation has been prepared under my direction and personally reviewed by me in its entirety. I confirm that the note above accurately reflects all work, treatment, procedures, and medical decision making performed by me. Departure Information Dispostion Home / Self-Care Referrals Sulman,Hermann A., D.O. (PCP) Forms HOME CARE DOCUMENTATION FORM, IMPORTANT VISIT INFORMATION, WORK / SCHOOL INSTRUCTIONS Patient Instructions Catheter Bag Urinary Empty Clean, Catheter Indwelling Urinary Nd, [facility] Additional Instructions Take plenty of clear liquids. Increase salt intake Follow up with Dr. Pascual on Tuesday Problem Qualifiers
[2017-09-02] MEDS ORDERED: FINA5TAB PO (23:43)
[2017-09-02] MEDS ORDERED: TAMS0.4C38 PO (23:44)
[2017-09-03 00:19] LABS: CALCIUM 8.2 mg/dl (8.5-10.1); CREATININE 0.71 mg/dl (0.60-1.40); POTASSIUM 4.1 mmol/L (3.5-5.1)
[2017-09-03 00:44] VITALS: BP 142/73; PULSE 70; O2SAT 94
--- NOTE | 2017-09-06 17:44 | Pharmacy Progress Note ---
ED Pharmacist Culture FollowUp Date of Service: Sep 06, 2017. Patient's urine culture from cath growing coag negative staphylococcus. Patient with urinary retention, removal of poe 9 hours prior. Poe was replaced. UA was negative, WBC 5-10 with >30 epi. No further treatment necessary. Case discussed with Dr. Abdi.
== END 2017-09-03 00:44 | disposition home or self-care (01) ==
LOC: C.EDB 22:48 → C.EDA 09-03 00:44
DX: R33.9 Retention of urine, unspecified (principal); E87.1 Hypo-osmolality and hyponatremia; N40.1 Benign prostatic hyperplasia with lower urinary tract symptoms; I10 Essential (primary) hypertension; Z96.0 Presence of urogenital implants; Z79.82 Long term (current) use of aspirin; Z91.048 Other nonmedicinal substance allergy status; Z82.49 Family history of ischemic heart disease and other diseases of the circulatory system; Z82.0 Family history of epilepsy and other diseases of the nervous system

== ENCOUNTER 2017-09-15 09:38 | Day surgery (SDC) | payer OTHER ==
[2017-09-06 14:21] VITALS: BMI 24.0
--- NOTE | 2017-09-06 14:31 | PAT Medication Instructions ---
Service Date Sep 06, 2017. Current Home Medication List Aspirin (Aspirin 81), 81 MG PO STOP 2.19.18 Atenolol (Tenormin), 100 MG PO QAM Carbamazepine (Carbamazepine), 300 MG PO afternoon & evening Carbamazepine (Tegretol), 400 MG PO QAM Cyanocobalamin (B-12), 1,000 MCG PO QAM Finasteride (Proscar), 5 MG PO HS Naproxen (Naprosyn), 500 MG PO BID Omeprazole (Prilosec), 20 MG PO QAM Ranitidine (Zantac), 150 MG PO BID Tamsulosin Hcl (Flomax), 0.4 MG PO HS Medication Instructions For Your Scheduled Surgery - Check with surgeon and prescribing physician for instructions: Aspirin (Aspirin 81), 81 MG PO daily - Check with surgeon for instructions: Naproxen (Naprosyn), 500 MG PO BID - Hold the following medications the morning of surgery: Cyanocobalamin (B-12), 1,000 MCG PO QAM - Take the following medications the morning of surgery with a sip of water: Atenolol (Tenormin), 100 MG PO QAM Carbamazepine (Carbamazepine), 300 MG PO afternoon & evening Carbamazepine (Tegretol), 400 MG PO QAM Omeprazole (Prilosec), 20 MG PO QAM Ranitidine (Zantac), 150 MG PO BID - Take the following medications as scheduled the night before surgery: Ranitidine (Zantac), 150 MG PO BID Tamsulosin Hcl (Flomax), 0.4 MG PO HS Finasteride (Proscar), 5 MG PO HS Carbamazepine (Carbamazepine), 300 MG PO afternoon & evening If you have any questions please call us at [phone] or [phone] or [phone]
[2017-09-06 15:52] LABS: BASO % 0.1 %; BASO ABS # 0.01 K/uL (0-0.2); EOS % 1.6 %; EOS ABS # 0.12 K/uL (0-0.5); HEMATOCRIT 41.1 % (42-52); HEMOGLOBIN 14.1 g/dL (14.0-18.0); IG# 0.01 K/uL (0.00-0.02); LYMPH % 26.3 %; LYMPH ABS # 1.94 K/uL (1.2-3.4); MEAN CELL VOLUME 89.2 fL (80-100); MEAN CORPUSCULAR HEMOGLOBIN 30.6 pg (25-34); MEAN CORPUSCULAR HGB CONC 34.3 g/dl (32-36); MEAN PLATELET VOLUME 8.6 fL (7.4-10.4); MONO % 7.3 %; MONO ABS # 0.54 K/uL (0.11-0.59); NEUT % 64.6 %; NEUT ABS # 4.77 K/uL (1.4-6.5); PLATELET COUNT 306 K/uL (130-400); RED CELL DISTRIBUTION WIDTH CV 13.2 % (11.5-14.5); RED CELL DISTRIBUTION WIDTH SD 43.2 fL (36.4-46.3); WHITE BLOOD COUNT 7.39 K/uL (4.8-10.8)
[2017-09-06 16:19] LABS: CREATININE 0.61 mg/dl (0.60-1.40); POTASSIUM 4.6 mmol/L (3.5-5.1)
[~2017-09-15] VITALS: Ht 162.6 cm; Wt 64.0 kg
[~2017-09-15 09:38] MED LIST changes: +ATROPINE SULFATE 0.1 MG/ML 5ML SYR IV PRN; -CIPR-255 PO; +CIPROFLOXACIN / D5W 400 MG IV SCH; -CLON0.5T3 PO; -DOXA-10 PO; +EpHEDrine SULFATE INJ 50 MG/ML AMP IV PRN; +FINA5TAB PO; -FLNIN/ NAE; +HYDROmorphone INJ 2 MG/ML SYR/VIAL IV PRN; -IBUP-1449 PO; +LACTATED RINGER'S 1000ML 1,000 ML IV SCH; +ONDANSETRON INJ 2 MG/ML 2 ML VIAL IV PRN; +PHENYLEPHRINE 100MCG/ML 5ML SYR IV PRN; +TAMS0.4C38 PO
[2017-09-15 10:00] VITALS: BP 161/80; PULSE 79; TEMP 36.7; O2SAT 99; Ht 162.6 cm; Wt 64.0 kg
--- NOTE | 2017-09-15 10:58 | History & Physical Bridge Note ---
H&P Re-Evaluation Bridge Note: I have examined the patient, reviewed the History & Physical and in the interval since the performance of the History & Physical I have noted the following changes of clinical significance: No changes noted
[2017-09-15] MEDS ORDERED: LIDOCAINE HCL 2% 2 ML VIAL (20MG/ML) ONE (11:04)
[2017-09-15] MEDS ORDERED: ONDANSETRON INJ 2 MG/ML 2 ML VIAL ONE (11:04)
[2017-09-15] MEDS ORDERED: MIDAZOLAM HCL 1 MG/ML 2ML VIAL ONE (11:04)
[2017-09-15] MEDS ORDERED: PROPOFOL IV EMULSION 10 MG/ML 20 ML VIAL IV ONE (11:04)
[2017-09-15] MEDS ORDERED: FENTANYL CITRATE INJ 50 MCG/1 ML 2 ML VIAL ONE (11:05)
[2017-09-15] MEDS ORDERED: DEXAMETHASONE SOD INJ 4 MG/ML VIAL ONE (11:35)
[2017-09-15] MEDS ORDERED: EpHEDrine SULFATE 50MG/5ML SYR ONE (11:42)
--- NOTE | 2017-09-15 12:39 | [facility] Operative Report ---
Operative Report Operative Date Sep 15, 2017. Pre-Operative Diagnosis Benign Prostatic Hyperplasia with Urinary Obstruction, Urinary Retention Post-Operative Diagnosis Benign Prostatic Hyperplasia with Urinary Obstruction, Urinary Retention Procedure(s) Performed Transuretheral Resection of Prostate Surgeon Dr. Whitney Bioinformatics Computer Scientist Surgeon(s) none Estimated Blood Loss 5 cc Findings Large prostate with intravesical incursion Specimens none per surgeon Drains Bonilla catheter Anesthesia Type General Complication(s) none Disposition yes Recovery Room / PACU Indications Urinary retention Description of Procedure The patient was identified in the preoperative holding area, appropriate informed consents were reviewed and completed and the patient was transported to the operating suite. Upon arrival he received appropriate preoperative antibiotics in the form of ciprofloxacin, and general anesthesia was induced. He was placed in dorsal lithotomy position where he was sterilely prepped and draped in standard fashion. I began the case by passing a 27 Mexican resectoscope with visual obturator and 30 lens. Inspection revealed no evidence of stricture disease. Inspection of his prostate revealed a relatively short length of prostate however his lateral lobes are quite hypertrophied with intravesical incursion. Inspection of the bladder revealed moderate trabeculation, mild catheter related cystitis, and ureteral orifices in orthotopic position. Following my inspection and evaluation, exchanged the visual obturator for resecting element and a button electrode. I began by flattening the posterior aspect of the prostate and bladder neck. I then turned my attention to the patient's left lateral lobe beginning at the most anterior aspect I began to vaporize and resect that aspect of the prostate. After opening the left side, I turned my attention to the right side and performed the same procedure. Of note, approximately 60% of the prostate tissue on these lateral lobes seem to be intravesical, and the conclusion of the case the bladder neck and prostate appear to be widely patent. There was excellent hemostasis, and the case was concluded. I withdrew my scope after leaving the bladder full and then placed a Bonilla catheter without difficulty. The patient was extubated and taken to the PACU in stable condition I attest to the content of the Intraoperative Record and any orders documented therein. Any exceptions are noted below.
[2017-09-15] MEDS ORDERED: PHEN95TA14 PO (12:48)
[2017-09-15] MEDS ORDERED: ACET-749 PO (12:48)
[2017-09-15] MEDS ORDERED: SULF800T23 PO (12:48)
[2017-09-15] MEDS ORDERED: SODIUM CHLORIDE 0.9% 1000ML 1,000 ML IV SCH (12:51)
--- NOTE | 2017-09-15 12:51 | Discharge Instructions ---
Discharge Instructions Date of Service Sep 15, 2017. Admission Reason for Admission: Benign Prostatic Hyperplasia W/Urinary Obstruction Discharge Discharge Diagnosis / Problem: BPH with urinary retention Discharge Goals Goal(s): Decrease discomfort, Improve function, Increase independence, Improve disease control, Prevent Disease Progression Activity Recommendations Activity Limitations: resume your previous activity Lifting Limitations: none Exercise/Sports Limitations: none May Resume Sexual Activity: when tolerated Shower/Bathe: no limitations Driving or Machine Use: resume 1 day after discharge It is normal to have burning with urination and blood in your urine for the next 2-4 weeks. You will also likely urinate very frequently and with some urgency. This will all improve with time. . Instructions / Follow-Up Instructions / Follow-Up Please keep your appointment with Dr. Whitney to have your catheter removed. Current Hospital Diet Patient's current hospital diet: Discharge Diet Recommended Diet: Regular Diet Procedures Procedures Performed: Transuretheral Resection of Prostate Pending Studies Studies pending at discharge: no Medical Emergencies . Who to Call and When: Medical Emergencies: If at any time you feel your situation is an emergency, please call 911 immediately. . Non-Emergent Contact Non-Emergency issues call your: Urologist Call Non-Emergent contact if: you have a fever, temperature is above 101.5, your pain is not controlled, your pain is worsening . . "Provider Documentation" section prepared by Ryan Bliss. . [place] Drug Monitoring Program Search Results: patient reviewed within database, no issues identified
[2017-09-15] MEDS ORDERED: HYDROCODONE/ACETAMIN 5/325MG TAB PO PRN ×2 (13:00)
[2017-09-15] MEDS ORDERED: ACETAMINOPHEN 325 MG TAB PO PRN (13:00)
[2017-09-15 13:31] VITALS: BP 136/72; PULSE 65; TEMP 36.4; O2SAT 98
[2017-09-15 14:01] VITALS: BP 159/75; PULSE 65; TEMP 36.4; O2SAT 99
--- NOTE | 2017-09-15 14:06 | Anesthesiology Progress Note ---
Anesthesia Post Op Note Date & Time Sep 15, 2017 at 14:06 Vital Signs Pain Intensity: 0 Vital Signs Past 12 Hours Date Time Temp Pulse Resp B/P (MAP) Pulse Ox O2 Delivery O2 Flow Rate FiO2 09/15/17 14:01 36.4 65 18 159/75 99 Room Air 09/15/17 13:31 36.4 65 18 136/72 98 Room Air 09/15/17 13:20 36.2 70 14 136/70 97 Room Air 09/15/17 13:10 69 19 148/78 97 Room Air 09/15/17 13:00 74 22 149/84 97 Room Air 09/15/17 12:50 59 14 132/72 100 Oxymask 10 09/15/17 12:43 36.2 56 16 128/72 100 Oxymask 10 09/15/17 10:00 36.7 79 18 161/80 (107) 99 Room Air Notes Mental Status: alert / awake / arousable, participated in evaluation Pt Amnestic to Procedure: Yes Nausea / Vomiting: adequately controlled Pain: adequately controlled Airway Patency, RR, SpO2: stable & adequate BP & HR: stable & adequate Hydration State: stable & adequate Anesthetic Complications: no major complications apparent
== END 2017-09-15 14:08 | disposition home or self-care (01) ==
LOC: C.ACU 09:38
PROVIDERS: ATTEND Urology
DX: N40.1 Benign prostatic hyperplasia with lower urinary tract symptoms (principal); N13.8 Other obstructive and reflux uropathy; R33.9 Retention of urine, unspecified; I50.9 Heart failure, unspecified; I10 Essential (primary) hypertension; K21.9 Gastro-esophageal reflux disease without esophagitis; G40.909 Epilepsy, unspecified, not intractable, without status epilepticus; Z85.828 Personal history of other malignant neoplasm of skin; Z82.49 Family history of ischemic heart disease and other diseases of the circulatory system; Z80.3 Family history of malignant neoplasm of breast; Z80.6 Family history of leukemia; Z90.89 Acquired absence of other organs; Z86.73 Personal history of transient ischemic attack (TIA), and cerebral infarction without residual deficits; Z79.82 Long term (current) use of aspirin

== ENCOUNTER 2017-09-19 22:45 | Inpatient (IN) | payer OTHER ==
[~2017-09-19] VITALS: Ht 165.1 cm; Wt 61.6 kg
[~2017-09-19 22:45] MED LIST changes: +ACET-749 PO; -ATROPINE SULFATE 0.1 MG/ML 5ML SYR IV PRN; -CIPROFLOXACIN / D5W 400 MG IV SCH; -EpHEDrine SULFATE INJ 50 MG/ML AMP IV PRN; -HYDROmorphone INJ 2 MG/ML SYR/VIAL IV PRN; -LACTATED RINGER'S 1000ML 1,000 ML IV SCH; -ONDANSETRON INJ 2 MG/ML 2 ML VIAL IV PRN; +PHEN95TA14 PO; -PHENYLEPHRINE 100MCG/ML 5ML SYR IV PRN; +SULF800T23 PO
[2017-09-19 23:22] LABS: EOS % 0.1 %; EOS ABS # 0.01 K/uL (0-0.5); HEMATOCRIT 36.3 % (42-52); HEMOGLOBIN 12.8 g/dL (14.0-18.0); IG# 0.06 K/uL (0.00-0.02); LYMPH % 8.3 %; LYMPH ABS # 1.62 K/uL (1.2-3.4); MEAN CELL VOLUME 87.5 fL (80-100); MEAN CORPUSCULAR HEMOGLOBIN 30.8 pg (25-34); MEAN CORPUSCULAR HGB CONC 35.3 g/dl (32-36); MEAN PLATELET VOLUME 8.5 fL (7.4-10.4); MONO % 5.8 %; MONO ABS # 1.13 K/uL (0.11-0.59); NEUT % 85.5 %; NEUT ABS # 16.71 K/uL (1.4-6.5); PLATELET COUNT 318 K/uL (130-400); RED CELL DISTRIBUTION WIDTH SD 41.9 fL (36.4-46.3); WHITE BLOOD COUNT 19.53 K/uL (4.8-10.8)
[2017-09-19 23:42] LABS: ALBUMIN 3.4 gm/dl (3.4-5.0); CALCIUM 8.6 mg/dl (8.5-10.1); CREATININE 0.61 mg/dl (0.60-1.40); POTASSIUM 3.7 mmol/L (3.5-5.1)
[2017-09-19 23:45] LABS: TOTAL PROTEIN 7.4 gm/dl (6.4-8.2)
[2017-09-19] MEDS ORDERED: OPTIRAY 320 IV PRN (23:45)
[2017-09-20] VITALS (7 sets, daily range): BP systolic 112–152; BP diastolic 67–75; PULSE 71–82; TEMP 36.3–37.1; O2SAT 94–97; Ht 165.1 cm; Wt 61.6 kg
[2017-09-20] MEDS ORDERED: ONDANSETRON INJ 2 MG/ML 2 ML VIAL ONE (00:06)
[2017-09-20] MEDS ORDERED: SODIUM CHLORIDE 0.9% 1000ML 1,000 ML IV STA (00:15)
[2017-09-20] MEDS ORDERED: SOAP SUDS ENEMA PR STA (00:42)
[2017-09-20 02:22] LABS: OSMOLALITY,URINE 249 mOms/kg (500-800)
[2017-09-20 02:24] LABS: SODIUM RANDOM URINE 43 mEq/L
--- NOTE | 2017-09-20 03:43 | EMERGENCY ROOM VISIT NOTE ---
History First contact with patient: 22:53 Chief Complaint: GI ASSESSMENT Stated Complaint: VOMITING, NO BOWEL MOVEMENT, NOT FEELING WELL Nursing Triage Summary: Patient had some type of urology surgery September 15, Since then constipation and started vomitting last night. also c/o Chills. Patient only speaks Turkmen, son with patient. History of Present Illness The patient is a 62 year old male who presents to the Emergency Room with complaints of nausea, vomiting, abdominal discomfort with no bowel movement since September 15 since his TURP procedure. He had an appendectomy many years ago. Patient has a decreased appetite. Patient denies chest pain, dyspnea, fever, chills, cough, chest congestion, back pain, urinary symptoms, cold symptoms. No history of bowel obstructions. Review of Systems An 10 system review of systems was completed with positives and pertinent negatives listed in the HPI. Past Medical/Surgical History Medical Problems: (1) Hypertension (2) Hyponatremia (3) Seizures Appendectomy Family History Cancer Heart disease Hypertension Seizures Social History Smoking Status: Never Smoker Alcohol Use: none Drug Use: none Marital Status: Housing Status: lives with family Occupation Status: unemployed Current/Historical Medications Scheduled Aspirin (Aspirin 81), 81 MG PO STOP 2. Atenolol (Tenormin), 100 MG PO QAM Carbamazepine (Carbamazepine), 300 MG PO afternoon & evening Carbamazepine (Tegretol), 400 MG PO QAM Cyanocobalamin (B-12), 1,000 MCG PO QAM Finasteride (Proscar), 5 MG PO HS Naproxen (Naprosyn), 500 MG PO BID Omeprazole (Prilosec), 20 MG PO QAM Phenazopyridine Hcl (Azo Tabs), 1 TAB PO Q8 Ranitidine (Zantac), 150 MG PO BID Tamsulosin Hcl (Flomax), 0.4 MG PO HS Scheduled PRN Acetaminophen/Codeine (Tylenol W/Codeine #3), 2 TAB PO Q8 PRN for Pain Physical Exam Vital Signs Date Time Temp Pulse Resp B/P (MAP) Pulse Ox O2 Delivery O2 Flow Rate FiO2 09/20/17 03:33 81 20 127/81 98 09/20/17 02:58 84 20 120/74 97 Room Air 09/20/17 00:41 71 18 127/65 98 Room Air 09/19/17 22:48 36.6 78 16 144/79 96 Room Air Physical Exam VITALS: Vitals are noted on the nurse's note and reviewed by myself. Vital signs stable. GENERAL: Pleasant male, in no acute distress, nondiaphoretic, well-developed well-nourished. SKIN: The skin was without rashes, erythema, edema, or bruising. There is no tenting of the skin. Capillary reflex less than 2 seconds. HEAD: Normocephalic atraumatic. EARS: External auditory canals clear, tympanic membranes pearly peralta without erythema or effusion bilaterally. EYES: Pupils equal round and reactive to light and accommodation. Conjunctivae without injection, sclerae without icterus. Extraocular movements intact. NOSE: Patent, turbinates without inflammation or discharge. No sinus tenderness. MOUTH: Mucous membranes mildly dry. Pharynx without erythema or exudate. Uvula midline. Airway patent. Tongue does not deviate. NECK: Supple without nuchal rigidity. No lymphadenopathy. No thyromegaly. Cervical spine is nontender. No JVD. HEART: Regular rate and rhythm without murmurs gallops or rubs. LUNGS: Clear to auscultation bilaterally without wheezes, rales or rhonchi. No retractions or accessory muscle use. ABDOMEN: Positive bowel sounds x 4. Normal tympanic percussion. Soft, nontender, without masses or organomegaly. Wilson sign negative. No guarding or rebound tenderness. No CVA tenderness MUSCULOSKELETAL: No muscle atrophy, erythema, or edema noted. NEURO: Patient was alert and oriented to person place and time. Normal sensation to light and sharp touch. No focal neurological deficits. Medical Decision & Procedures Laboratory Results 09/19/17 23:11 Red Blood Count 4.15, Mean Corpuscular Volume 87.5, Mean Corpuscular Hemoglobin 30.8, Mean Corpuscular Hemoglobin Concent 35.3, Mean Platelet Volume 8.5, Neutrophils (%) (Auto) 85.5, Lymphocytes (%) (Auto) 8.3, Monocytes (%) (Auto) 5.8, Eosinophils (%) (Auto) 0.1, Basophils (%) (Auto) 0.0, Neutrophils # (Auto) 16.71, Lymphocytes # (Auto) 1.62, Monocytes # (Auto) 1.13, Eosinophils # (Auto) 0.01, Basophils # (Auto) 0.00 09/19/17 23:11 09/20/17 02:14 Test 09/19/17 23:11 09/20/17 01:13 09/20/17 02:14 White Blood Count 19.53 K/uL (4.8-10.8) Red Blood Count 4.15 M/uL (4.7-6.1) Hemoglobin 12.8 g/dL (14.0-18.0) Hematocrit 36.3 % (42-52) Mean Corpuscular Volume 87.5 fL (80-100) Mean Corpuscular Hemoglobin 30.8 pg (25-34) Mean Corpuscular Hemoglobin Concent 35.3 g/dl (32-36) Platelet Count 318 K/uL (130-400) Mean Platelet Volume 8.5 fL (7.4-10.4) Neutrophils (%) (Auto) 85.5 % Lymphocytes (%) (Auto) 8.3 % Monocytes (%) (Auto) 5.8 % Eosinophils (%) (Auto) 0.1 % Basophils (%) (Auto) 0.0 % Neutrophils # (Auto) 16.71 K/uL (1.4-6.5) Lymphocytes # (Auto) 1.62 K/uL (1.2-3.4) Monocytes # (Auto) 1.13 K/uL (0.11-0.59) Eosinophils # (Auto) 0.01 K/uL (0-0.5) Basophils # (Auto) 0.00 K/uL (0-0.2) RDW Standard Deviation 41.9 fL (36.4-46.3) RDW Coefficient of Variation 13.0 % (11.5-14.5) Immature Granulocyte % (Auto) 0.3 % Immature Granulocyte # (Auto) 0.06 K/uL (0.00-0.02) Anion Gap 7.0 mmol/L (3-11) Est Creatinine Clear Calc Drug Dose 107.8 ml/min Estimated GFR () 123.2 Estimated GFR (Non- 106.3 BUN/Creatinine Ratio 19.1 (10-20) Calcium Level 8.6 mg/dl (8.5-10.1) Total Bilirubin 0.4 mg/dl (0.2-1) Direct Bilirubin 0.1 mg/dl (0-0.2) Aspartate Amino Transf (AST/SGOT) 16 U/L (15-37) Alanine Aminotransferase (ALT/SGPT) 23 U/L (12-78) Alkaline Phosphatase 80 U/L (45-117) Total Protein 7.4 gm/dl (6.4-8.2) Albumin 3.4 gm/dl (3.4-5.0) Urine Color RED Urine Appearance CLEAR (CLEAR) Urine pH 7.5 (4.5-7.5) Urine Specific [place] 1.035 (1.000-1.030) Urine Protein 1+ (NEG) Urine Glucose (UA) NEG (NEG) Urine Ketones NEG (NEG) Urine Occult Blood 3+ (NEG) Urine Nitrite NEG (NEG) Urine Bilirubin NEG (NEG) Urine Urobilinogen NEG (NEG) Urine Leukocyte Esterase TRACE (NEG) Urine WBC (Auto) 5-10 /hpf (0-5) Urine RBC (Auto) >30 /hpf (0-4) Urine Hyaline Casts (Auto) 1-5 /lpf (0-5) Urine Epithelial Cells (Auto) 0-5 /lpf (0-5) Urine Bacteria (Auto) NEG (NEG) Urine Osmolality 249 mOms/kg (500-800) Urine Random Sodium 43 mEq/L Osmolality 266 mOsm/kg (280-300) Magnesium Level 1.9 mg/dl (1.8-2.4) Thyroid Stimulating Hormone (TSH) 0.349 uIu/ml (0.300-4.500) Carbamazepine (Tegretol) Level 10.2 mcg/ml (4-12) Medications Administered Medications (Trade) Dose Ordered Sig/Debbie Route Start Time Stop Time Status Last Admin Dose Admin Ondansetron HCl (Zofran Inj) 4 mg STK-MED ONCE .ROUTE 09/20/17 00:06 09/20/17 00:07 DC 09/20/17 00:06 4 MG Sodium Chloride 1,000 ml @ 999 mls/hr Q1H1M STAT IV 09/20/17 00:15 09/20/17 01:15 DC 09/20/17 00:15 999 MLS/HR Miscellaneous (Soap Suds Enema) 1 ea NOW STAT SC 09/20/17 00:42 09/20/17 00:43 DC 09/20/17 00:42 1 EA ED Course Prior records/ancillary studies reviewed. Triage Nursing notes reviewed. Additional history obtained from family The patient's history was concerning for abdominal pain with recent surgery. Differential diagnosis: Etiologies such as post operative complication, diverticulitis, PUD, biliary pathology, UTI, pancreatitis, obstruction, mesenteric ischemia, aortic pathology , infections, inflammatory bowel disease, renal colic, as well as others were entertained. Physical examination findings: As above. ER treatment provided: IV fluids, Zofran, enema On reassessment the patient felt better. Diagnostics interpreted by me: The labs revealed leukocytosis, anemia, hyponatremia Imaging studies: CT of the abdomen and pelvis shows no bowel obstruction per radiology and review Consultation: A consultation was placed with the hospitalist, Dr. Heredia. The case was discussed and diagnostics were reviewed. The patient was evaluated in the ER for further treatment. Exam and history seem consistent with constipation with hyponatremia. Patient' s sodium has not been this low in the past. He will be evaluated by medicine. He was given an enema and felt better. He had several large bowel movements while in the ER. The patient requested that his son translate. Patient agrees to treatment plan of admission. Medicine was consulted.By the evaluation outlined above emergent etiologies such as appendicitis, diverticulitis, PUD, biliary pathology, UTI, pancreatitis, obstruction, mesenteric ischemia, aortic pathology, infections, inflammatory bowel disease, renal colic, as well as others were deemed relatively unlikely. The pt informed about the findings as listed above. All questions were answered and pleased with the treatment. Case reviewed with my attending The chart was completed utilizing [employer] Speech voice recognition software. Grammatical errors, random word insertions, pronoun errors, and incomplete sentences are an occassional consequence of this system due to software limitations, ambient noise, and hardware issues. Any formal questions or concerns about the content, text, or information contained within the body of this dictation should be directly addressed to the physician front office medical assistant for clarification. Medical Decision As above Medication Reconcilliation Current Medication List: was personally reviewed by me Blood Pressure Screening Patient's blood pressure: Normal blood pressure Impression Primary Impression: Hyponatremia Additional Impressions: Nausea and vomiting Constipation Departure Information Dispostion Being Evaluated By Hospitalist Condition FAIR Referrals Hermann Berger D.O. (PCP) Patient Instructions My [facility] Problem Qualifiers
[2017-09-20] MEDS ORDERED: ACETAMINOPHEN/CODEINE 300/30MG TAB PO PRN (03:45)
[2017-09-20] MEDS ORDERED: POLYETHYLENE (MIRALAX) 17 GM PACK PO PRN (03:45)
[2017-09-20] MEDS ORDERED: ACETAMINOPHEN 325 MG TAB PO PRN (03:45)
[2017-09-20] MEDS ORDERED: PROCHLORPERAZINE INJ 5 MG in SYRINGE 4 ML IV PRN (03:45)
[2017-09-20] MEDS ORDERED: NITROGLYCERIN 0.4 MG SL PER TAB CHARGE SL PRN (03:45)
[2017-09-20] MEDS ORDERED: PHENAZOPYRIDINE HCL 100 MG TAB PO PRN (06:00)
[2017-09-20 06:08] LABS: BASO % 0.1 %; BASO ABS # 0.01 K/uL (0-0.2); EOS % 0.2 %; EOS ABS # 0.03 K/uL (0-0.5); HEMOGLOBIN 11.9 g/dL (14.0-18.0); IG# 0.04 K/uL (0.00-0.02); LYMPH % 8.5 %; LYMPH ABS # 1.25 K/uL (1.2-3.4); MEAN CELL VOLUME 88.3 fL (80-100); MEAN CORPUSCULAR HEMOGLOBIN 30.9 pg (25-34); MEAN PLATELET VOLUME 8.5 fL (7.4-10.4); MONO % 7.1 %; MONO ABS # 1.05 K/uL (0.11-0.59); NEUT % 83.8 %; NEUT ABS # 12.32 K/uL (1.4-6.5); PLATELET COUNT 274 K/uL (130-400); RED CELL DISTRIBUTION WIDTH CV 13.1 % (11.5-14.5)
[2017-09-20 06:33] LABS: CALCIUM 8.3 mg/dl (8.5-10.1); CREATININE 0.65 mg/dl (0.60-1.40); POTASSIUM 3.7 mmol/L (3.5-5.1)
--- NOTE | 2017-09-20 06:48 | DIAGNOSTIC IMAGING REPORT ---
CT ABD/PELVIS IV CONTRAST ONLY CLINICAL HISTORY: Abdominal pain and constipation. Recent prostate surgery. COMPARISON STUDY: 02/03/2017 TECHNIQUE: Following the IV administration of 92 mL of Optiray-320, CT scan of the abdomen and pelvis was performed from the lung bases to the proximal femurs. Images are reviewed in the axial, sagittal, and coronal planes. IV contrast was administered without complication. A dose lowering technique was utilized adhering to the principles of ALARA. CT DOSE: 274.33 mGy.cm FINDINGS: Lower chest: The heart is normal in size and configuration, without pericardial effusion. The lung bases and pleural spaces are clear. Liver: There is a to small to characterize 6 mm hypodensity within the inferior aspect of the right lobe Gallbladder: Unremarkable. Spleen: Normal in size and attenuation. Pancreas: Unremarkable. Adrenal glands: Unremarkable. Kidneys: This 37 mm right renal cyst. There is a 4 mm left renal cyst. There is no hydronephrosis. No solid renal masses are visualized. Bowel: There are no transition zones indicate bowel obstruction. There is no acute diverticulitis. By history the appendix is surgically absent. There is mild fecal retention. Peritoneum: There is no intraperitoneal free air or abdominal ascites. Vasculature: The abdominal aorta is normal in course and caliber. There are moderate atheromatous changes within the iliac vessels. Adenopathy: None. Pelvic viscera: There is bladder wall thickening with infiltration the perivesical fat. Clinical correlation regards to a cystitis is recommended. There is been an interval TURP procedure. There is hyperdense material within the bladder, possibly representing hemorrhage. An underlying mass cannot be excluded with certainty. Skeletal structures: There is bilateral L5 spondylolysis. There is a grade 1 spondylolisthesis of L5 and S1. IMPRESSION: 1. No evidence of bowel obstruction. No evidence of free air 2. Bladder wall thickening with infiltration the perivesical fat. Clinical correlation in regards to a cystitis is recommended. In addition there is hyperdense material within the bladder, possibly representing hemorrhage. Electronically signed by: Jimbo Gupta M.D. 09/20/2017 6:47 AM Dictated Date/Time: 09/20/2017 6:41 AM
[2017-09-20] MEDS: ASPIRIN 81 MG ECTAB PO SCH (08:24)
[2017-09-20] MEDS: PANTOprazole SOD 40 MG TAB PO SCH (08:25)
[2017-09-20] MEDS: CARBAMAZEPINE 200 MG TAB PO SCH ×3 (08:25→20:27)
[2017-09-20] MEDS: RANITIDINE HCL 150 MG TAB PO SCH ×2 (08:25→20:27)
[2017-09-20] MEDS: DOCUSATE SODIUM 100 MG CAP PO SCH (08:25)
--- NOTE | 2017-09-20 10:43 | HISTORY & PHYSICAL EXAMINATION ---
DATE OF ADMISSION: 09/20/2017 PRIMARY CARE PHYSICIAN: Hermann Berger DO. CHIEF COMPLAINT: Abdominal pain, constipation, vomiting as per records. HISTORY OF PRESENT ILLNESS: History obtained from patient, records. Patient communication facilitated by tablet graphics programmer. 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 Five days ago, patient underwent TURP for BPH at same day surgery. Discharged on Tylenol, codeine, Bactrim home meds. At home, constipation, chills, vomiting, achy lower abdominal pain. No chest pain, no shortness of breath. Poor appetite. Denies dysuria. Patient brought to the Emergency Room. MEDICAL HISTORY: As above. HOME MEDICATIONS: Aspirin, atenolol, B12, Tegretol, Proscar, naproxen, Prilosec, Zantac, Flomax. FAMILY HISTORY: Diabetes. PERSONAL AND SOCIAL HISTORY: Nonsmoker, no chronic intake of alcoholic beverages. [place]ian ethnicity. SURGERIES: Urologic procedures, dermatologic procedures, appendectomy. REVIEW OF SYSTEMS: Could not be obtained. PHYSICAL EXAMINATION: VITAL SIGNS: Blood pressure was noted to be 137/65, pulse rate 90 RR 17 T37 O2 sats 98 on room air GEN : pleasant, respiratory distress. SKIN: Pallor, warm. HEENT: Pale palpebral conjunctiva. No ptosis. Dry mucosa. NECK: Short, supple. CHEST: Decreased effort. No tenderness. HEART: Regular rate and rhythm. Systolic murmur. ABDOMEN: minimal hypogastric tenderness, some distention. EXTREMITIES: No edema. No gross deformities. No tenderness. NEUROLOGIC: Coherent. No gross focality. LABORATORY DATA: Hemoglobin was noted to be 12.8, hematocrit 36.3, white cells 19.5, platelets noted to be at 318. Sodium noted to be 124, potassium 3.7, BUN 12, creatinine 0.6, glucose 123. Carbamazepine level was noted to be 10.2, CT abdomen and pelvis showed no bowel obstruction, bladder wall thickening possible cystitis. UA, occult blood, trace WBCs positive. ASSESSMENT: 1. Acute on chronic hyponatremia secondary to hypovolemia secondary to poor p.o. intake, emesis from postop constipation. recent outpatient TURP ? possible codeine intolerance/sensitivity 2. Hypertension, stable. 3. History of seizure DSO, stable on carbamazepine. 4. History of ICH as per records hx cavernous malformation Patient scheduled for outpatient [facility] Neurosurgery evaluation this week 5. Chronic anemia, hemoglobin at baseline. PLAN: PCU. Hyponatremia workup Careful correction of serum sodium. Follow response after first NSS bolus given at the ER. May need Nephrology opinion. Bowel regimen. Decrease Tylenol and codeine prn dosing frequency. DVT prophylaxis, SCDs RE hx ICH as per records Full code. Attempted to contact patient's son over phone to obtain additional history and to update him of plan of care. (Mr. Oskar Chapman at [phone]) No answer; I left message for call back. GEOVANNID
[2017-09-20] MEDS ORDERED: CEFTRIAXONE SOD INJ 1 GM in DEXTROSE 5% ADD-VANTAGE 50ML 50 ML IV ONE (12:30)
--- NOTE | 2017-09-20 14:50 | Urology Consultation ---
History General Date of Service: Sep 20, 2017. Primary Care Physician: Hermann Berger D.O. Pt seen a urologist before?: Yes If yes, why?: Urinary retention, status post TURP last week History of Present Illness 62-year-old gentleman is battled with urinary retention for the past several weeks who ultimately underwent a TURP last week Return to the emergency room yesterday after having several days without a bowel movement, nausea and vomiting as well as moderate abdominal pain He responded well to an enema with subsequent small bowel movements and his nausea and abdominal pain in turn have resolved entirely He reports he is voiding well -strong stream Still with some dysuria Still some hematuria Feels he is emptying adequately In the midst of his workup for his general abdominal discomfort, he had a CT abdomen pelvis This shows a diffusely thickened bladder wall consistent with his recent surgery as well as a question of some clot within the bladder Overall, however, his bladder is entirely decompressed, he shows a appropriate TURP defect in his prostate with interval resection of his intravesical median lobe and and the amount of suspected clot is relatively minimal Imaging Imaging: CT Laboratory Labs were reviewed and are within normal limits unless listed below. Labs are available in the chart and at [facility] Problem List Medical Problems: (1) Abdominal pain Status: Acute (2) Constipation Status: Acute (3) Enlarged prostate Status: Acute (4) Hyponatremia Status: Acute (5) Nausea and vomiting Status: Acute (6) Nausea and vomiting Status: Acute (7) Urinary retention Status: Acute Past History BPH, GERD, urinary tract infection Past Surgical History: other (Transurethral resection of prostate) Family History Cancer Heart disease Hypertension Seizures Social History Hx Tobacco Use In Past Year?: No Marital status: Occupation status: unemployed Immunizations History of Influenza Vaccine: No History of Tetanus Vaccine?: Unknown History of Pneumococcal: No History of Hepatitis B Vaccine: Unknown History of MDRO No Allergies Coded Allergies: NO KNOWN DRUG ALLERGIES (Verified Allergy, Mild, ., 09/19/17) [place] (Verified Allergy, Mild, ORANGE JUICE, 09/19/17) Uncoded Allergies: ORANGE JUICE (Allergy, Unknown, ITCHY, 09/06/17) Medications Home Medications: Home Meds and Scripts Medications Dose Route/Sig Max Daily Dose Days Date Category Dose Instructions Azo Tabs (Phenazopyridine Hcl) 95 Mg Tab 1 Tab PO Q8 09/15/17 Rx Tylenol W/Codeine #3 (Acetaminophen/Codeine Phosphate) 300 Mg/30 Mg Tab 2 Tab PO Q8 PRN 09/15/17 Rx Flomax (Tamsulosin Hcl) 0.4 Mg Cap 0.4 Mg PO HS 09/02/17 Reported Proscar (Finasteride) 5 Mg Tab 5 Mg PO HS 09/02/17 Reported Aspirin 81 (Aspirin) 81 Mg Tab 81 Mg PO STOP 208/09/17 Reported Prilosec (Omeprazole) 20 Mg Capcr 20 Mg PO QAM 08/09/17 Reported Tegretol (Carbamazepine) 200 Mg Tab 400 Mg PO QAM 08/09/17 Reported Zantac (Ranitidine HCl) 150 Mg Tab 150 Mg PO BID 02/05/17 Reported B-12 (Cyanocobalamin) 1,000 Mcg Cap 1,000 Mcg PO QAM 06/19/15 Reported Carbamazepine 200 Mg Tab 300 Mg PO AFTERNOON & EVENING 03/09/14 Reported 1 & 07/19 tablet = 300mg Tenormin (Atenolol) 100 Mg Tab 100 Mg PO QAM 06/05/13 Reported Naprosyn (Naproxen) 500 Mg Tab 500 Mg PO BID 05/25/06 Reported ON HOLD DUE TO SURGERY Inpatient Medications: Current Inpatient Medications Medications (Trade) Dose Ordered Sig/Debbie Route Start Time Stop Time Status Last Admin Dose Admin Ioversol (Optiray 320) 111 ml UD PRN IV 09/19/17 23:45 09/23/17 23:44 Acetaminophen (Tylenol Tab) 650 mg Q4H PRN PO 09/20/17 03:45 10/20/17 03:44 Nitroglycerin (Nitrostat Tab) 0.4 mg UD PRN SL 09/20/17 03:45 10/20/17 03:44 Prochlorperazine Edisylate 5 mg/ Syringe 5 ml @ 5 mls/min Q6H PRN IV 09/20/17 03:45 10/20/17 03:44 Aspirin (Ecotrin Tab) 81 mg DAILY PO 09/20/17 09:00 10/20/17 08:59 09/20/17 08:24 81 MG Atenolol (Tenormin Tab) 100 mg QAM PO 09/20/17 09:00 10/20/17 08:59 09/20/17 08:24 100 MG Carbamazepine (Tegretol Tab) 300 mg BID@1400,2100 PO 09/20/17 14:00 10/20/17 13:59 09/20/17 13:40 300 MG Carbamazepine (Tegretol Tab) 400 mg QAM PO 09/20/17 09:00 10/20/17 08:59 09/20/17 08:25 400 MG Finasteride (Proscar Tab) 5 mg HS PO 09/20/17 21:00 10/20/17 20:59 Ranitidine HCl (zANTac TAB) 150 mg BID PO 09/20/17 09:00 10/20/17 08:59 09/20/17 08:25 150 MG Tamsulosin HCl (Flomax Cap) 0.4 mg HS PO 09/20/17 21:00 10/20/17 20:59 Pantoprazole Sodium (Protonix Tab) 40 mg QAM PO 09/20/17 09:00 10/20/17 08:59 09/20/17 08:25 40 MG Phenazopyridine HCl (Pyridium Tab) 1 mg Q8 PRN PO 09/20/17 06:00 10/20/17 05:59 Docusate Sodium (coLACE CAP) 100 mg DAILY PO 09/20/17 09:00 10/20/17 08:59 09/20/17 08:25 100 MG Polyethylene (Miralax Powder Packet) 17 gm DAILY PRN PO 09/20/17 03:45 10/20/17 03:44 Acetaminophen/ Codeine Phosphate (Tylenol w/ Codeine #3 Tab) 1 tab Q8H PRN PO 09/20/17 03:45 10/20/17 03:44 Review of Systems Review of Systems Constitutional: No see HPI, No fever, No chills, No frequent headaches, No weight loss, No problem reported Eyes: No see HPI, No blurred vision, No double vision, No eye pain, No loss of night vision, No problem reported Neurological: No see HPI, No dizzy, No passing out, No numbness/tingling, No seizures, No problem reported Gastrointestinal: + abdominal pain, + nausea, + vomiting, + constipation Cardiovascular: No see HPI, No heart murmur, No chest pain, No angina, No irregular heartbeat, No palpitations, No swelling ankles/feet, No problem reported Respiratory: No see HPI, No shortness of breath, No wheezing, No coughing up blood, No chronic cough, No problem reported Skin: No see HPI, No rash, No boils, No dry skin, No problem reported Musculoskeletal: No see HPI, No joint pain, No neck pain, No back pain, No arthritis, No problem reported Blood / Lymphatic: No see HPI, No bleed easily, No bruise easily, No swollen glands, No problem reported Ears / Nose / Throat: No see HPI, No hearing loss, No sinus, No hoarse voice, No sore throat, No problem reported Psychologic / Mental: No see HPI, No nervous, No trouble remembering, No difficulty sleeping, No problem reported Male : + see HPI, + urinary retention, + blood in urine All Other Systems: Reviewed and Negative Physical Exam Vital Signs: Vital Signs Past 12 Hours Date Time Temp Pulse Resp B/P (MAP) Pulse Ox O2 Delivery O2 Flow Rate FiO2 09/20/17 12:08 36.6 76 18 131/73 (92) 94 09/20/17 12:00 Room Air 09/20/17 08:23 82 112/72 (85) 09/20/17 08:00 Room Air 09/20/17 07:50 36.7 76 18 138/73 (94) 94 Room Air 09/20/17 04:58 36.3 73 18 137/68 95 Room Air 09/20/17 03:33 81 20 127/81 98 09/20/17 02:58 84 20 120/74 97 Room Air Physical Exam: General Appearance: WD/WN, no apparent distress Eyes: bilateral eyes normal inspection ENT: hearing grossly normal Neck: supple Respiratory/Chest: no respiratory distress, no accessory muscle use Cardiovascular: regular rate, rhythm, no edema Gastrointestinal: Abdomen: normal abdomen Extremities: normal range of motion, non-tender Neurologic/Psychiatric: alert, normal mood/affect, oriented x 3 Skin: normal color Lymphatic: no adenopathy Assessment & Plan Assessment & Plan 62-year-old gentleman 1 week status post TURP Prior to the TURP, he battled with urinary retention for several weeks including multiple catheterizations Upon my visit today, he reports that he feels very well and has no subjective complaints I suspect that his initial presentation was directly related to GI issues, but these now appear resolved His leukocytosis raises concerns for other infectious processes etc, and he certainly is at risk for UTI after his catheterizations and surgery That said, his UA looks to not be grossly infected -cultures are pending I suspect the thickening of his bladder is at least in part an inflammatory reaction to his recent surgery as well as numerous catheterizations There is no indication for any urinary intervention at this time At most, I would consider empiric coverage with antibiotics His recovery otherwise appears to be on course
--- NOTE | 2017-09-20 19:19 | Progress Note ---
Progress Note Date of Service Sep 20, 2017. Progress Note Subjective denies pain, aware of hospital plan Exam General: no distress, verbal in Burmese Lung: CTABL Heart: RRR Abdomen: soft, nontender, + bowel sounds Extremities: no edema Plan: Patient has been seen by urology in regards to recent history of TURP and leukocytosis with CT abdomen finding concerning for bladder thickening. Despite negative UA patient given ceftriaxone 1 gram on 09/20/17 empirically and blood cultures drawn. Will monitor for fever overnight Will continue ceftriaxone tomorrow pending blood cultures Will recheck electrolytes (hyponatremia somewhat corrected) and CBC due to anemia in the AM Patient has seizure history and on carbamazepine and his noted that patient may have been staring in space - patient's reports that this happens when he is ill.Have ordered EEG. Continue home medications of Carbamazepine DVT ppx
[2017-09-20] MEDS ORDERED: TAMSULOSIN HCL 0.4 MG CAP PO SCH (21:00)
[2017-09-20] MEDS ORDERED: FINASTERIDE 5 MG TAB PO SCH (21:00)
[2017-09-21 04:16] VITALS: BP 112/62; PULSE 75; TEMP 36.8; O2SAT 96
[2017-09-21 05:29] LABS: BASO % 0.1 %; BASO ABS # 0.01 K/uL (0-0.2); EOS % 0.8 %; EOS ABS # 0.07 K/uL (0-0.5); HEMATOCRIT 35.6 % (42-52); HEMOGLOBIN 12.4 g/dL (14.0-18.0); IG# 0.02 K/uL (0.00-0.02); MEAN CELL VOLUME 88.8 fL (80-100); MEAN CORPUSCULAR HEMOGLOBIN 30.9 pg (25-34); MEAN CORPUSCULAR HGB CONC 34.8 g/dl (32-36); MEAN PLATELET VOLUME 8.4 fL (7.4-10.4); MONO % 12.2 %; MONO ABS # 1.03 K/uL (0.11-0.59); NEUT % 67.7 %; NEUT ABS # 5.71 K/uL (1.4-6.5); PLATELET COUNT 259 K/uL (130-400); RED CELL DISTRIBUTION WIDTH CV 13.2 % (11.5-14.5); RED CELL DISTRIBUTION WIDTH SD 42.6 fL (36.4-46.3); WHITE BLOOD COUNT 8.44 K/uL (4.8-10.8)
[2017-09-21 05:48] LABS: ALBUMIN 3.1 gm/dl (3.4-5.0); CALCIUM 8.3 mg/dl (8.5-10.1); CREATININE 0.57 mg/dl (0.60-1.40); POTASSIUM 3.7 mmol/L (3.5-5.1)
[2017-09-21 07:41] VITALS: BP 143/75; PULSE 71; TEMP 36.3; O2SAT 95
[2017-09-21] MEDS: RANITIDINE HCL 150 MG TAB PO SCH (07:54)
[2017-09-21] MEDS: PANTOprazole SOD 40 MG TAB PO SCH (07:54)
[2017-09-21] MEDS: DOCUSATE SODIUM 100 MG CAP PO SCH (07:54)
[2017-09-21] MEDS: ASPIRIN 81 MG ECTAB PO SCH (07:55)
[2017-09-21] MEDS: CARBAMAZEPINE 200 MG TAB PO SCH (07:55)
[2017-09-21 11:00] VITALS: BP 148/76; PULSE 64; TEMP 36.8; O2SAT 97
--- NOTE | 2017-09-21 11:35 | Progress Note ---
Internal Med Progress Note Date of Service: Sep 21, 2017. Provider Documentation: SUBJECTIVE: No distress. Is ambulatory OBJECTIVE: General: no distress, verbal in [place] Lung: CTABL Heart: RRR Abdomen: soft, nontender, + bowel sounds Extremities: no edema ASSESSMENT & PLAN: Patient originally admitted for symptoms of nausea, vomiting, abdominal discomfort, constipation Constipation resolved. Patient also to be prescribed senna and colace on discharge Patient has been seen by urology in regards to recent history of TURP and admission leukocytosis 19,[address] abdomen finding concerning for bladder thickening. Despite negative UA 09/20/17 patient given ceftriaxone 1 gram on empirically and blood cultures drawn. Urine culture from 09/20/17 with no growth. Blood cultures results still pending. WBC declined to 8400. Patient has been afebrile. Will discharge patient with ciprofloxacin 500 mg q12 hours for possible prostatitis. Will give 1 week duration of medicine for now and have patient follow up with primary care doctor or urologist whether bacterial treatment needs to be extended for a total of 6 weeks for prostatitis. Patient has anemia but not significantly changed on this hospital admission's daily labs Patient has chronic hyponatremia and this has improved slightly after IV fluids on this admission Patient has seizure history/history of cavernous malformation and on carbamazepine and his noted that patient may have been staring in space - patient's reports that this happens when he is ill. EEG completed with results pending. Continue home medications of Carbamazepine. Patient to follow up outpatient neurology and neurosurgery DISPOSITION: discharge to home Follow up appointments 09/23/2017 11:15 AM Jaiden Mae MD Neurosurgery, [place] 09/27/2017 12:45 PM Navjot Smith MD General Internal Medicine [facility] appointment line [phone] to notify for earlier follow up appointment for Neurology clinic Patient will need follow up with Jaspal Parisi urology with Dr. Whitney 11/22/2017 3:00 PM Maurice Burrows DO Pulmonary Medicine, [facility] 12/22/2017 10:30 AM Van Pascal DO Cardiology, [facility] 02/10/2018 10:40 AM Tigist Oliva MD Neurology [facility] Vital Signs: Date Time Temp Pulse Resp B/P (MAP) Pulse Ox O2 Delivery O2 Flow Rate FiO2 09/21/17 11:00 36.8 64 18 148/76 (100) 97 Room Air 09/21/17 08:00 Room Air 09/21/17 07:41 36.3 71 18 143/75 (97) 95 Room Air 09/21/17 04:16 36.8 75 20 112/62 (79) 96 Room Air 09/21/17 04:00 Room Air 09/21/17 00:00 Room Air 09/20/17 23:44 37.1 71 21 152/71 (98) 97 Room Air 09/20/17 20:00 Room Air 09/20/17 19:55 36.8 72 18 126/67 (86) 97 Room Air 09/20/17 16:00 Room Air 09/20/17 15:46 36.7 72 18 131/75 (93) 96 Room Air 09/20/17 12:08 36.6 76 18 131/73 (92) 94 Lab Results: Results Past 24 Hours Test 09/21/17 05:06 Range/Units White Blood Count 8.44 4.8-10.8 K/uL Red Blood Count 4.01 4.7-6.1 M/uL Hemoglobin 12.4 14.0-18.0 g/dL Hematocrit 35.6 42-52 % Mean Corpuscular Volume 88.8 80-100 fL Mean Corpuscular Hemoglobin 30.9 25-34 pg Mean Corpuscular Hemoglobin Concent 34.8 32-36 g/dl Platelet Count 259 130-400 K/uL Mean Platelet Volume 8.4 7.4-10.4 fL Neutrophils (%) (Auto) 67.7 % Lymphocytes (%) (Auto) 19.0 % Monocytes (%) (Auto) 12.2 % Eosinophils (%) (Auto) 0.8 % Basophils (%) (Auto) 0.1 % Neutrophils # (Auto) 5.71 1.4-6.5 K/uL Lymphocytes # (Auto) 1.60 1.2-3.4 K/uL Monocytes # (Auto) 1.03 0.11-0.59 K/uL Eosinophils # (Auto) 0.07 0-0.5 K/uL Basophils # (Auto) 0.01 0-0.2 K/uL RDW Standard Deviation 42.6 36.4-46.3 fL RDW Coefficient of Variation 13.2 11.5-14.5 % Immature Granulocyte % (Auto) 0.2 % Immature Granulocyte # (Auto) 0.02 0.00-0.02 K/uL Sodium Level 129 136-145 mmol/L Potassium Level 3.7 3.5-5.1 mmol/L Chloride Level 94 98-107 mmol/L Carbon Dioxide Level 27 21-32 mmol/L Anion Gap 8.0 3-11 mmol/L Blood Urea Nitrogen 8 7-18 mg/dl Creatinine 0.57 0.60-1.40 mg/dl Est Creatinine Clear Calc Drug Dose 67.7 ml/min Estimated GFR () 126.7 Estimated GFR (Non- 109.3 BUN/Creatinine Ratio 13.6 10-20 Random Glucose 103 70-99 mg/dl Calcium Level 8.3 8.5-10.1 mg/dl Magnesium Level 2.1 1.8-2.4 mg/dl Total Bilirubin 0.4 0.2-1 mg/dl Aspartate Amino Transf (AST/SGOT) 9 15-37 U/L Alanine Aminotransferase (ALT/SGPT) 20 12-78 U/L Alkaline Phosphatase 66 45-117 U/L Total Protein 7.0 6.4-8.2 gm/dl Albumin 3.1 3.4-5.0 gm/dl Globulin 3.9 2.5-4.0 gm/dl Albumin/Globulin Ratio 0.8 0.9-2
[2017-09-21] MEDS ORDERED: CEFTRIAXONE SOD INJ 1 GM in DEXTROSE 5% ADD-VANTAGE 50ML 50 ML IV SCH (12:00)
[2017-09-21] MEDS ORDERED: CPR500 OR (12:02)
[2017-09-21] MEDS ORDERED: DOCU-94 PO (12:06)
[2017-09-21] MEDS ORDERED: SENN8.6C OR (12:07)
--- NOTE | 2017-09-21 12:09 | Discharge Instructions ---
Discharge Instructions Date of Service Sep 21, 2017. Admission Reason for Admission: Hyponatremia Discharge Discharge Diagnosis / Problem: possible prostatitis, hyponatremia, constipation , seizure history Discharge Goals Goal(s): Improve function Activity Recommendations Activity Limitations: per Instructions/Follow-up section Shower/Bathe: no limitations . Instructions / Follow-Up Instructions / Follow-Up Patient originally admitted for symptoms of nausea, vomiting, abdominal discomfort, constipation Constipation resolved. Patient also to be prescribed senna and colace on discharge Patient has been seen by urology in regards to recent history of TURP and admission leukocytosis 19,[address] abdomen finding concerning for bladder thickening. Despite negative UA 09/20/17 patient given ceftriaxone 1 gram on empirically and blood cultures drawn. Urine culture from 09/20/17 with no growth. Blood cultures results still pending. WBC declined to 8400. Patient has been afebrile. Will discharge patient with ciprofloxacin 500 mg q12 hours for possible prostatitis. Will give 1 week duration of medicine for now and have patient follow up with primary care doctor or urologist whether bacterial treatment needs to be extended for a total of 6 weeks for prostatitis. Patient has anemia but not significantly changed on this hospital admission's daily labs Patient has chronic hyponatremia and this has improved slightly after IV fluids on this admission Patient has seizure history/history of cavernous malformation and on carbamazepine and his noted that patient may have been staring in space - patient's reports that this happens when he is ill. EEG completed with results pending. Continue home medications of Carbamazepine. Patient to follow up outpatient neurology and neurosurgery DISPOSITION: discharge to home Follow up appointments 09/23/2017 11:15 AM Jaiden Mae MD Neurosurgery, [place] 09/27/2017 12:45 PM Navjot Smith MD General Internal Medicine [facility] appointment line [phone] to notify for earlier follow up appointment for Neurology clinic Patient will need follow up with Jaspal Parisi urology with Dr. Whitney 11/22/2017 3:00 PM Maurice Burrows DO Pulmonary Medicine, [facility] 12/22/2017 10:30 AM Van Pascal DO Cardiology, [facility] 02/10/2018 10:40 AM Tigist Oliva MD Neurology [facility] Diet Patient's current hospital diet: Regular Diet Discharge Diet Recommended Diet: Regular Diet Pending Studies Studies pending at discharge: yes List of pending studies: blood cultures from 09/20/17 EEG results from 09/21/17 Laboratory Results 09/21/17 05:06 Red Blood Count 4.01, Mean Corpuscular Volume 88.8, Mean Corpuscular Hemoglobin 30.9, Mean Corpuscular Hemoglobin Concent 34.8, Mean Platelet Volume 8.4, Neutrophils (%) (Auto) 67.7, Lymphocytes (%) (Auto) 19.0, Monocytes (%) (Auto) 12.2, Eosinophils (%) (Auto) 0.8, Basophils (%) (Auto) 0.1, Neutrophils # (Auto ) 5.71, Lymphocytes # (Auto) 1.60, Monocytes # (Auto) 1.03, Eosinophils # (Auto ) 0.07, Basophils # (Auto) 0.01 09/21/17 05:06 Test 09/19/17 23:11 09/20/17 01:13 09/20/17 02:14 09/21/17 05:06 Direct Bilirubin 0.1 mg/dl (0-0.2) Urine Color RED Urine Appearance CLEAR (CLEAR) Urine pH 7.5 (4.5-7.5) Urine Specific [place] 1.035 (1.000-1.030) Urine Protein 1+ (NEG) Urine Glucose (UA) NEG (NEG) Urine Ketones NEG (NEG) Urine Occult Blood 3+ (NEG) Urine Nitrite NEG (NEG) Urine Bilirubin NEG (NEG) Urine Urobilinogen NEG (NEG) Urine Leukocyte Esterase TRACE (NEG) Urine WBC (Auto) 5-10 /hpf (0-5) Urine RBC (Auto) >30 /hpf (0-4) Urine Hyaline Casts (Auto) 1-5 /lpf (0-5) Urine Epithelial Cells (Auto) 0-5 /lpf (0-5) Urine Bacteria (Auto) NEG (NEG) Urine Osmolality 249 mOms/kg (500-800) Urine Random Sodium 43 mEq/L Osmolality 266 mOsm/kg (280-300) Thyroid Stimulating Hormone (TSH) 0.349 uIu/ml (0.300-4.500) Carbamazepine (Tegretol) Level 10.2 mcg/ml (4-12) White Blood Count 8.44 K/uL (4.8-10.8) Red Blood Count 4.01 M/uL (4.7-6.1) Hemoglobin 12.4 g/dL (14.0-18.0) Hematocrit 35.6 % (42-52) Mean Corpuscular Volume 88.8 fL (80-100) Mean Corpuscular Hemoglobin 30.9 pg (25-34) Mean Corpuscular Hemoglobin Concent 34.8 g/dl (32-36) Platelet Count 259 K/uL (130-400) Mean Platelet Volume 8.4 fL (7.4-10.4) Neutrophils (%) (Auto) 67.7 % Lymphocytes (%) (Auto) 19.0 % Monocytes (%) (Auto) 12.2 % Eosinophils (%) (Auto) 0.8 % Basophils (%) (Auto) 0.1 % Neutrophils # (Auto) 5.71 K/uL (1.4-6.5) Lymphocytes # (Auto) 1.60 K/uL (1.2-3.4) Monocytes # (Auto) 1.03 K/uL (0.11-0.59) Eosinophils # (Auto) 0.07 K/uL (0-0.5) Basophils # (Auto) 0.01 K/uL (0-0.2) RDW Standard Deviation 42.6 fL (36.4-46.3) RDW Coefficient of Variation 13.2 % (11.5-14.5) Immature Granulocyte % (Auto) 0.2 % Immature Granulocyte # (Auto) 0.02 K/uL (0.00-0.02) Anion Gap 8.0 mmol/L (3-11) Est Creatinine Clear Calc Drug Dose 67.7 ml/min Estimated GFR () 126.7 Estimated GFR (Non- 109.3 BUN/Creatinine Ratio 13.6 (10-20) Calcium Level 8.3 mg/dl (8.5-10.1) Magnesium Level 2.1 mg/dl (1.8-2.4) Total Bilirubin 0.4 mg/dl (0.2-1) Aspartate Amino Transf (AST/SGOT) 9 U/L (15-37) Alanine Aminotransferase (ALT/SGPT) 20 U/L (12-78) Alkaline Phosphatase 66 U/L (45-117) Total Protein 7.0 gm/dl (6.4-8.2) Albumin 3.1 gm/dl (3.4-5.0) Globulin 3.9 gm/dl (2.5-4.0) Albumin/Globulin Ratio 0.8 (0.9-2) Date/Time Source Procedure Growth Status 09/20/17 11:20 Blood Blood Culture Pending Received 09/20/17 01:13 Urine , Clean Catch Urine Culture - Preliminary NO GROWTH - LESS THAN 1,000 COLONIES/... Resulted Medical Emergencies . Who to Call and When: Medical Emergencies: If at any time you feel your situation is an emergency, please call 911 immediately. . Non-Emergent Contact Non-Emergency issues call your: Primary Care Provider Call Non-Emergent contact if: you have any medication questions . . "Provider Documentation" section prepared by Vinny Ye. .
[2017-09-21 12:11] VITALS: BP 148/76; PULSE 64; TEMP 36.8; O2SAT 97
--- NOTE | 2017-09-21 12:45 | Progress Note ---
Subjective Date of Service: Sep 21, 2017. Subjective Pt evaluation today including: conversation w/ patient, physical exam, chart review, lab review Voiding: no voiding problems Doing better this AM - leukocytosis improved - no subjective complaints - spoke with patient and his Problem List Medical Problems: (1) Abdominal pain Status: Acute (2) Constipation Status: Acute (3) Enlarged prostate Status: Acute (4) Hyponatremia Status: Acute (5) Nausea and vomiting Status: Acute (6) Nausea and vomiting Status: Acute (7) Urinary retention Status: Acute Review of Systems Constitutional: No see HPI, No fever, No chills, No sweats, No weight loss, No weakness, No fatigue, No problem reported Abdomen: No see HPI, No pain, No nausea, No vomiting, No diarrhea, No constipation, No GI bleeding, No problem reported Objective Vital Signs Date Time Temp Pulse Resp B/P (MAP) Pulse Ox O2 Delivery O2 Flow Rate FiO2 09/21/17 12:11 36.8 64 18 97 Room Air 09/21/17 12:00 Room Air 09/21/17 11:00 36.8 64 18 148/76 (100) 97 Room Air 09/21/17 08:00 Room Air 09/21/17 07:41 36.3 71 18 143/75 (97) 95 Room Air 09/21/17 04:16 36.8 75 20 112/62 (79) 96 Room Air 09/21/17 04:00 Room Air 09/21/17 00:00 Room Air 09/20/17 23:44 37.1 71 21 152/71 (98) 97 Room Air 09/20/17 20:00 Room Air 09/20/17 19:55 36.8 72 18 126/67 (86) 97 Room Air 09/20/17 16:00 Room Air 09/20/17 15:46 36.7 72 18 131/75 (93) 96 Room Air Physical Exam General Appearance: WD/WN, no apparent distress ENT: hearing grossly normal Respiratory/Chest: no respiratory distress Cardiovascular: regular rate, rhythm, no edema Abdomen: soft Laboratory Results Last 24 Hours Test 09/21/17 05:06 White Blood Count 8.44 K/uL Red Blood Count 4.01 M/uL Hemoglobin 12.4 g/dL Hematocrit 35.6 % Mean Corpuscular Volume 88.8 fL Mean Corpuscular Hemoglobin 30.9 pg Mean Corpuscular Hemoglobin Concent 34.8 g/dl Platelet Count 259 K/uL Mean Platelet Volume 8.4 fL Neutrophils (%) (Auto) 67.7 % Lymphocytes (%) (Auto) 19.0 % Monocytes (%) (Auto) 12.2 % Eosinophils (%) (Auto) 0.8 % Basophils (%) (Auto) 0.1 % Neutrophils # (Auto) 5.71 K/uL Lymphocytes # (Auto) 1.60 K/uL Monocytes # (Auto) 1.03 K/uL Eosinophils # (Auto) 0.07 K/uL Basophils # (Auto) 0.01 K/uL RDW Standard Deviation 42.6 fL RDW Coefficient of Variation 13.2 % Immature Granulocyte % (Auto) 0.2 % Immature Granulocyte # (Auto) 0.02 K/uL Sodium Level 129 mmol/L Potassium Level 3.7 mmol/L Chloride Level 94 mmol/L Carbon Dioxide Level 27 mmol/L Anion Gap 8.0 mmol/L Blood Urea Nitrogen 8 mg/dl Creatinine 0.57 mg/dl Est Creatinine Clear Calc Drug Dose 67.7 ml/min Estimated GFR () 126.7 Estimated GFR (Non- 109.3 BUN/Creatinine Ratio 13.6 Random Glucose 103 mg/dl Calcium Level 8.3 mg/dl Magnesium Level 2.1 mg/dl Total Bilirubin 0.4 mg/dl Aspartate Amino Transf (AST/SGOT) 9 U/L Alanine Aminotransferase (ALT/SGPT) 20 U/L Alkaline Phosphatase 66 U/L Total Protein 7.0 gm/dl Albumin 3.1 gm/dl Globulin 3.9 gm/dl Albumin/Globulin Ratio 0.8 Assessment and Plan Admitted for constipation, hyponatremia, leukocytosis - all appear resolved - given empiric abx - but urine culture has been neg - stable for d/c home - f/u as out pt
--- NOTE | 2017-09-21 14:20 | Discharge Summary ---
Discharge Summary Date of Service Sep 21, 2017. Discharge Summary Admission Date: Sep 20, 2017 at 03:04 Discharge Date: Sep 21, 2017 Principal Diagnosis: possible prostatitis, hyponatremia, constipation, seizure history Consultations: urology Medication Reconciliation New Medications: Ciprofloxacin (Ciprofloxacin HCl) 500 Mg Tab 1 TAB OR Q12 for 7 Days, #14 TAB Docusate Sodium (Colace) 100 Mg Cap 1 CAP PO BID for 15 Days, #30 CAP Sennosides (Senna) 8.6 Mg Cap 1 TAB OR DAILY for 30 Days, #30 TAB Continued Medications: Acetaminophen/Codeine (Tylenol W/Codeine #3) 300 Mg/30 Mg Tab 2 TAB PO Q8 PRN for Pain, #20 TAB Aspirin (Aspirin 81) 81 Mg Tab 81 MG PO STOP 2.19.18 Atenolol (Tenormin) 100 Mg Tab 100 MG PO QAM, TAB Carbamazepine (Carbamazepine) 200 Mg Tab 300 MG PO afternoon & evening 1 & 1/2 tablet = 300mg Carbamazepine (Tegretol) 200 Mg Tab 400 MG PO QAM, TAB Cyanocobalamin (B-12) 1,000 Mcg Cap 1000 MCG PO QAM Finasteride (Proscar) 5 Mg Tab 5 MG PO HS, TAB Naproxen (Naprosyn) 500 Mg Tab 500 MG PO BID for Pain ON HOLD DUE TO SURGERY Omeprazole (Prilosec) 20 Mg Capcr 20 MG PO QAM, CAP Phenazopyridine Hcl (Azo Tabs) 95 Mg Tab 1 TAB PO Q8 for dysuria, #20 Ranitidine (Zantac) 150 Mg Tab 150 MG PO BID, TAB Tamsulosin Hcl (Flomax) 0.4 Mg Cap 0.4 MG PO HS, CAP Admission Information HPI (per Admitting provider): CHIEF COMPLAINT: Abdominal pain, constipation, vomiting as per records. HISTORY OF PRESENT ILLNESS: History obtained from patient, records. 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 Five days ago, patient underwent TURP for BPH at same day surgery. Discharged on Tylenol, codeine, Bactrim home meds. At home, constipation, chills, vomiting, achy lower abdominal pain. No chest pain, no shortness of breath. Poor appetite. Denies dysuria. Patient brought to the Emergency Room. MEDICAL HISTORY: As above. HOME MEDICATIONS: Aspirin, atenolol, B12, Tegretol, Proscar, naproxen, Prilosec, Zantac, Flomax. FAMILY HISTORY: Diabetes. PERSONAL AND SOCIAL HISTORY: Nonsmoker, no chronic intake of alcoholic beverages. [place] ethnicity. SURGERIES: Urologic procedures, dermatologic procedures, appendectomy. REVIEW OF SYSTEMS: Could not be obtained. Physical Exam (per Admitting): PHYSICAL EXAMINATION: VITAL SIGNS: Blood pressure was noted to be 137/65, pulse rate 90 RR 17 T37 O2 sats 98 on room air GEN : pleasant, respiratory distress. SKIN: Pallor, warm. HEENT: Pale palpebral conjunctiva. No ptosis. Dry mucosa. NECK: Short, supple. CHEST: Decreased effort. No tenderness. HEART: Regular rate and rhythm. Systolic murmur. ABDOMEN: minimal hypogastric tenderness, some distention. EXTREMITIES: No edema. No gross deformities. No tenderness. NEUROLOGIC: Coherent. No gross focality. Hospital Course Patient originally admitted for symptoms of nausea, vomiting, abdominal discomfort, constipation Constipation resolved. Patient also to be prescribed senna and colace on discharge Patient has been seen by urology in regards to recent history of TURP and admission leukocytosis 19,[address] abdomen finding concerning for bladder thickening. Despite negative UA 09/20/17 patient given ceftriaxone 1 gram on empirically and blood cultures drawn. Urine culture from 09/20/17 with no growth. Blood cultures results still pending. WBC declined to 8400. Patient has been afebrile. Will discharge patient with ciprofloxacin 500 mg q12 hours for possible prostatitis. Will give 1 week duration of medicine for now and have patient follow up with primary care doctor or urologist whether bacterial treatment needs to be extended for a total of 6 weeks for prostatitis. Patient has anemia but not significantly changed on this hospital admission's daily labs Patient has chronic hyponatremia and this has improved slightly after IV fluids on this admission Patient has seizure history/history of cavernous malformation and on carbamazepine and his noted that patient may have been staring in space - patient's reports that this happens when he is ill. EEG completed with results pending. Continue home medications of Carbamazepine. Patient to follow up outpatient neurology and neurosurgery DISPOSITION: discharge to home Follow up appointments 09/23/2017 11:15 AM Jaiden Mae MD Neurosurgery, [place] 09/27/2017 12:45 PM Navjot Smith MD General Internal Medicine [facility] appointment line [phone] to notify for earlier follow up appointment for Neurology clinic Patient will need follow up with Jaspal Parisi urology with Dr. Whitney 11/22/2017 3:00 PM Maurice Burrows DO Pulmonary Medicine, [facility] 12/22/2017 10:30 AM Van Pascal DO Cardiology, [facility] 02/10/2018 10:40 AM Tigist Oliva MD Neurology [facility] Total time spent on discharge = 60 minutes This includes examination of the patient, discharge planning, medication reconciliation, and communication with other providers. Discharge Instructions see above
== END 2017-09-21 12:36 | disposition home or self-care (01) | DRG 392 ==
LOC: C.EDB 22:45 → C.MED 09-20 03:04 → ENRESERV 09-20 03:20
PROVIDERS: ADMIT Hospitalist; ATTEND Hospitalist
DX: K59.09 Other constipation (principal); E87.1 Hypo-osmolality and hyponatremia; E86.1 Hypovolemia; D72.829 Elevated white blood cell count, unspecified; R93.41 Abnormal radiologic findings on diagnostic imaging of renal pelvis, ureter, or bladder; I10 Essential (primary) hypertension; G40.909 Epilepsy, unspecified, not intractable, without status epilepticus; D64.9 Anemia, unspecified; I34.0 Nonrheumatic mitral (valve) insufficiency; Z87.820 Personal history of traumatic brain injury; Z87.74 Personal history of (corrected) congenital malformations of heart and circulatory system; Z90.79 Acquired absence of other genital organ(s); Z90.49 Acquired absence of other specified parts of digestive tract; Z98.890 Other specified postprocedural states; Z79.82 Long term (current) use of aspirin; Z79.899 Other long term (current) drug therapy; Z83.3 Family history of diabetes mellitus; Z82.49 Family history of ischemic heart disease and other diseases of the circulatory system

== ENCOUNTER 2017-10-16 02:36 | Observation (INO) | payer OTHER ==
[~2017-10-16] VITALS: Ht 162.6 cm; Wt 61.8 kg
[~2017-10-16 02:36] MED LIST changes: +CPR500 OR; +SENN8.6C OR; -SULF800T23 PO
[2017-10-16] MEDS ORDERED: SENN-61 PO (03:15)
[2017-10-16 03:33] LABS: BASO % 0.3 %; BASO ABS # 0.02 K/uL (0-0.2); EOS ABS # 0.15 K/uL (0-0.5); HEMATOCRIT 32.8 % (42-52); HEMOGLOBIN 11.6 g/dL (14.0-18.0); IG# 0.03 K/uL (0.00-0.02); LYMPH % 18.4 %; LYMPH ABS # 1.36 K/uL (1.2-3.4); MEAN CELL VOLUME 89.1 fL (80-100); MEAN CORPUSCULAR HEMOGLOBIN 31.5 pg (25-34); MEAN CORPUSCULAR HGB CONC 35.4 g/dl (32-36); MEAN PLATELET VOLUME 8.2 fL (7.4-10.4); MONO % 7.7 %; MONO ABS # 0.57 K/uL (0.11-0.59); NEUT % 71.2 %; NEUT ABS # 5.28 K/uL (1.4-6.5); PLATELET COUNT 285 K/uL (130-400); RED CELL DISTRIBUTION WIDTH CV 13.4 % (11.5-14.5); RED CELL DISTRIBUTION WIDTH SD 44.1 fL (36.4-46.3); WHITE BLOOD COUNT 7.41 K/uL (4.8-10.8)
--- NOTE | 2017-10-16 03:36 | EMERGENCY ROOM VISIT NOTE ---
History Report prepared by Jo: Quin Patino Under the Supervision of: Dr. Adamaris Bailey D.O. First contact with patient: 02:41 Chief Complaint: URINARY SYMPTOMS Stated Complaint: HEMATURIA/DIFFICULTY URINATING Nursing Triage Summary: dysuria, hematuria, urgency tonight. Had surgery for BPH a month ago. History of Present Illness The patient is a 62 year old male who presents to the Emergency Room with complaints of worsening urinary symptoms starting 2 hours ago. The patient's states that he had BPH surgery done a month ago and was just at a follow up 4 days ago. She reports that the patient has been complaining of passing small clots yesterday, but otherwise was doing okay. She states that 2 hours ago he started having excruciating pain. She reports that he was urinating blood and thinks he has a blood clot that is stuck. She states that he now cannot urinate. The patient currently rates his pain as a 10/10 in severity. Source of History: spouse/significant other Onset: 2 hours ago Position: other (global) Symptom Intensity: 10/10 Quality: other (urinary symptoms) Timing: worsening Review of Systems See HPI for pertinent positives & negatives. A total of 10 systems reviewed and were otherwise negative. Past Medical & Surgical Medical Problems: (1) Hematuria (2) Hypertension (3) Hyponatremia (4) Seizures Family History Cancer Heart disease Hypertension Seizures Social History Smoking Status: Never Smoker Alcohol Use: none Drug Use: none Marital Status: Housing Status: lives with family Occupation Status: unemployed Current/Historical Medications Scheduled Atenolol (Tenormin), 100 MG PO QAM Carbamazepine (Carbamazepine), 300 MG PO afternoon & evening Carbamazepine (Tegretol), 400 MG PO QAM Cyanocobalamin (B-12), 1,000 MCG PO QAM Naproxen (Naprosyn), 500 MG PO BID Omeprazole (Prilosec), 20 MG PO QAM Ranitidine (Zantac), 150 MG PO BID Scheduled PRN Senna (Senokot), 8.6 MG PO DAILY PRN for Constipation Allergies Coded Allergies: NO KNOWN DRUG ALLERGIES (Verified Allergy, Mild, ., 09/19/17) [place] (Verified Allergy, Mild, ORANGE JUICE, 09/19/17) Physical Exam Vital Signs Date Time Temp Pulse Resp B/P (MAP) Pulse Ox O2 Delivery O2 Flow Rate FiO2 4/1/18 06:41 93 22 99 Room Air 10/16/17 06:30 128/81 10/16/17 06:11 84 23 97 10/16/17 06:00 123/74 10/16/17 05:41 105 26 98 10/16/17 05:30 113/77 10/16/17 05:11 95 99 10/16/17 05:01 138/80 10/16/17 04:41 85 30 98 10/16/17 04:36 106 27 100 10/16/17 04:31 162/82 10/16/17 04:06 84 17 97 10/16/17 04:00 159/101 10/16/17 03:36 88 24 97 10/16/17 03:30 144/79 10/16/17 03:06 83 99 10/16/17 03:01 22 132/90 10/16/17 02:56 121 100 Room Air 10/16/17 02:46 109 100 10/16/17 02:44 159/96 10/16/17 02:40 36.4 111 45 159/96 100 Room Air Physical Exam General: Extremely uncomfortable appearing. Trembling. Pale in color. HEENT: Head - normocephalic and atraumatic Pupils are equal, round, and reactive to light. Extraocular eye muscles are intact, and sclera are anicteric. Nose - moist nasal mucosa without discharge. Mouth - moist buccal mucosa. Oropharynx is nonerythematous and there is no tonsillar exudate or edema noted. Neck: Supple; no JVD, nuchal rigidity, cervical lymphadenopathy. Heart: Tachycardic rate and regular rhythm. There is a normal S1 and S2 with no murmurs, clicks, or gallops appreciated. Lungs: Clear to auscultation bilaterally with no wheezes, rales, or rhonchi. Abdomen: Soft, significant abdominal distention with good bowel sounds. There are no palpable pulsatile masses or hepatosplenomegaly. There is no guarding, rigidity, or rebound noted. : Blood from the urethral meatus. Extremities: No evidence of cyanosis, clubbing, or edema. There are easily palpable peripheral pulses. Skin: warm and dry with good turgor and no rashes. Pale in color. Medical Decision & Procedures Laboratory Results 10/16/17 03:25 Red Blood Count 3.68, Mean Corpuscular Volume 89.1, Mean Corpuscular Hemoglobin 31.5, Mean Corpuscular Hemoglobin Concent 35.4, Mean Platelet Volume 8.2, Neutrophils (%) (Auto) 71.2, Lymphocytes (%) (Auto) 18.4, Monocytes (%) (Auto) 7.7, Eosinophils (%) (Auto) 2.0, Basophils (%) (Auto) 0.3, Neutrophils # (Auto) 5.28, Lymphocytes # (Auto) 1.36, Monocytes # (Auto) 0.57, Eosinophils # (Auto) 0.15, Basophils # (Auto) 0.02 10/16/17 03:25 Test 10/16/17 02:57 10/16/17 03:25 10/16/17 06:19 Urine Color RED Urine Appearance TURBID (CLEAR) Urine pH 7.0 (4.5-7.5) Urine Specific [place] 1.037 (1.000-1.030) Urine Protein 4+ (NEG) Urine Glucose (UA) 1+ (NEG) Urine Ketones NEG (NEG) Urine Occult Blood 2+ (NEG) Urine Nitrite NEG (NEG) Urine Bilirubin NEG (NEG) Urine Urobilinogen NEG (NEG) Urine Leukocyte Esterase NEG (NEG) Urine RBC >30 /hpf (0-4) Urine WBC >30 /hpf (0-5) Urine Epithelial Cells 0-5 /lpf (0-5) Urine Bacteria NEG (NEG) White Blood Count 7.41 K/uL (4.8-10.8) Red Blood Count 3.68 M/uL (4.7-6.1) Hemoglobin 11.6 g/dL (14.0-18.0) Hematocrit 32.8 % (42-52) Mean Corpuscular Volume 89.1 fL (80-100) Mean Corpuscular Hemoglobin 31.5 pg (25-34) Mean Corpuscular Hemoglobin Concent 35.4 g/dl (32-36) Platelet Count 285 K/uL (130-400) Mean Platelet Volume 8.2 fL (7.4-10.4) Neutrophils (%) (Auto) 71.2 % Lymphocytes (%) (Auto) 18.4 % Monocytes (%) (Auto) 7.7 % Eosinophils (%) (Auto) 2.0 % Basophils (%) (Auto) 0.3 % Neutrophils # (Auto) 5.28 K/uL (1.4-6.5) Lymphocytes # (Auto) 1.36 K/uL (1.2-3.4) Monocytes # (Auto) 0.57 K/uL (0.11-0.59) Eosinophils # (Auto) 0.15 K/uL (0-0.5) Basophils # (Auto) 0.02 K/uL (0-0.2) RDW Standard Deviation 44.1 fL (36.4-46.3) RDW Coefficient of Variation 13.4 % (11.5-14.5) Immature Granulocyte % (Auto) 0.4 % Immature Granulocyte # (Auto) 0.03 K/uL (0.00-0.02) Prothrombin Time 10.5 SECONDS (9.0-12.0) Prothromb Time International Ratio 1.0 (0.9-1.1) Activated Partial Thromboplast Time 22.1 SECONDS (21.0-31.0) Partial Thromboplastin Ratio 0.9 Anion Gap 9.0 mmol/L (3-11) Est Creatinine Clear Calc Drug Dose 85.6 ml/min Estimated GFR () 113.8 Estimated GFR (Non- 98.2 BUN/Creatinine Ratio 22.4 (10-20) Calcium Level 8.2 mg/dl (8.5-10.1) Chemistry Specimen Hemolysis Magnesium Level 2.1 mg/dl (1.8-2.4) Total Bilirubin 0.2 mg/dl (0.2-1) Direct Bilirubin < 0.1 mg/dl (0-0.2) Aspartate Amino Transf (AST/SGOT) 17 U/L (15-37) Alanine Aminotransferase (ALT/SGPT) 20 U/L (12-78) Alkaline Phosphatase 105 U/L (45-117) Total Protein 6.7 gm/dl (6.4-8.2) Albumin 3.4 gm/dl (3.4-5.0) Carbamazepine (Tegretol) Level 10.8 mcg/ml (4-12) Laboratory results per my review. Medications Administered Medications (Trade) Dose Ordered Sig/Debbie Route Start Time Stop Time Status Last Admin Dose Admin Hydromorphone HCl (Dilaudid Inj) 0.5 mg NOW STAT IV 10/16/17 04:29 10/16/17 04:30 DC 10/16/17 04:34 0.5 MG Hydromorphone HCl (Dilaudid Inj) 0.5 mg NOW STAT IV 10/16/17 05:44 10/16/17 05:46 DC 10/16/17 05:50 0.5 MG Potassium Chloride (Klor-Con M10) 40 meq NOW STAT PO 10/16/17 05:56 10/16/17 06:20 DC 10/16/17 06:39 40 MEQ Atenolol (Tenormin Tab) 100 mg NOW STAT PO 10/16/17 06:20 10/16/17 06:21 DC 10/16/17 06:38 100 MG Procedure 0429: Ordered Dilaudid Inj 0.5 mg IV. 0544: Ordered Dilaudid Inj 0.5 mg IV. ED Course 0248: Past medical records reviewed. The patient was evaluated in room A10. A complete history and physical exam was performed. Nursing staff was attempting a bladder scan at this time. An IV lock was initiated and labs are drawn as above. 0311: I reevaluated the patient and he is much more comfortable. He is putting out joo blood from the bladder. Nurses are going to try to flush the bladder. 0426: I reevaluated the patient. The nurses manually irrigated and urine is not clearing at all. I am going to have a triple lumen cath placed and do CBI. 0429: Ordered Dilaudid Inj 0.5 mg IV. 0430: I reviewed the records from September [address] Whitney -[facility]ola performed a TURP. He estimated blood loss to be less than 5cc. 0431: I discussed the patient's case with Dr. Allen -Urology. He states we should do the CBI and if not clearing, then he will need to be admitted. 0530: I reevaluated the patient and his bladder irrigation is clearing a little. He is more comfortable, but still in some pain. 0544: The patient describes continued suprapubic pain. I ordered Dilaudid Inj 0.5 mg IV. 0600: Discussed the patient's case with Dr. Reid [facility] Hospitalist. The patient will be evaluated for further management. Medical Decision The patient is a 62 year old male who presents to the Emergency Room with complaints of worsening urinary symptoms starting 2 hours ago. Differential diagnoses include urinary outlet obstruction, retained blood clot, postsurgical complication, UTI. LABS: No leukocytosis Hemoglobin 11.6 Normal renal function Glucose 148 Urine 2+ blood, greater than 30 red cells, greater than 30 white cells This is a 62-year-old male patient who presents to the emergency department with suprapubic abdominal pain and blood from the urethral meatus. Medication Reconcilliation Current Medication List: was personally reviewed by me Blood Pressure Screening Patient's blood pressure: Elevated blood pressure Blood pressure disposition: Elevated BP felt to be situational Will be further monitored by the hospitalist. Consults Time Called: 0426 Consulting Physician: Dr. Alejandro BarclayUrologcarola Returned Call: 0431 I discussed the patient's case with Dr. Alejandro Desir. He states we should do the CBI and if not clearing, then he will need to be admitted. Additional Consults: Time Called: 0555 Consulted Physician: Dr. Jeanette Gomez Hospitalist Returned Call: 0600 Additional Comments: Discussed the patient's case with Dr. Jeanette Gomez [facility]. The patient will be evaluated for further management. Impression Primary Impression: Hematuria Scribe Attestation The scribe's documentation has been prepared under my direction and personally reviewed by me in its entirety. I confirm that the note above accurately reflects all work, treatment, procedures, and medical decision making performed by me. Departure Information Dispostion Being Evaluated By Hospitalist Referrals No Doctor, Assigned (PCP) Patient Instructions My [facility] Problem Qualifiers Primary Impression: Hematuria Hematuria type: unspecified type Qualified Codes: R31.9 - Hematuria, unspecified
[2017-10-16 04:00] LABS: CALCIUM 8.2 mg/dl (8.5-10.1); CREATININE 0.74 mg/dl (0.60-1.40); POTASSIUM 3.3 mmol/L (3.5-5.1)
[2017-10-16] MEDS ORDERED: HYDROmorphone INJ 0.5 MG/0.5 ML SYR IV STA ×2 (04:29→05:44)
[2017-10-16] MEDS ORDERED: POTASSIUM CHLORIDE 10 MEQ TABCR PO STA (05:56)
[2017-10-16 06:17] LABS: PTT PATIENT 22.1 SECONDS (21.0-31.0)
[2017-10-16] MEDS ORDERED: OXYCODONE/ACETAMINOPHEN 5-325 TAB PO PRN (06:45)
[2017-10-16] MEDS ORDERED: MoRPHine SULFATE 4 MG/ML 1 ML CARP\\VIAL IV PRN (06:45)
[2017-10-16] MEDS ORDERED: PROCHLORPERAZINE INJ 5 MG in SYRINGE 4 ML IV PRN (06:45)
[2017-10-16] MEDS ORDERED: IV FLUIDS COMPLETED PRN (06:45)
[2017-10-16] MEDS ORDERED: ACETAMINOPHEN 325 MG TAB PO PRN (06:45)
[2017-10-16] MEDS ORDERED: OPTIRAY 320 IV PRN (06:45)
[2017-10-16 06:56] LABS: ALBUMIN 3.4 gm/dl (3.4-5.0); ALKALINE PHOSPHATASE 105 U/L (45-117); ALT/SGPT 20 U/L (12-78); AST/SGOT 17 U/L (15-37); TOTAL PROTEIN 6.7 gm/dl (6.4-8.2)
[2017-10-16 08:00] VITALS: BP 156/71; PULSE 71; TEMP 36.4; O2SAT 100; Ht 162.6 cm; Wt 61.8 kg
[2017-10-16] MEDS ORDERED: CALCIUM GLUCONATE 10% 1,000 MG in SODIUM CHLORIDE 0.9% 50ML 50 ML IV STA (08:06)
--- NOTE | 2017-10-16 08:11 | HISTORY & PHYSICAL EXAMINATION ---
DATE OF ADMISSION: 10/16/2017 PRIMARY CARE PHYSICIAN: Dr. Berger. CHIEF COMPLAINT: Hematuria. HISTORY OF PRESENT ILLNESS: History obtained from patient, and records. Limited history basically secondary to language barrier. Medical history significant for seizure disorder, chronic hyponatremia, hx of hemorrhagic CVA, traumatic brain injury, intracranial vascular malformation as per records, learning disability as per records, BPH status post surgery, chronic anemia (baseline hemoglobin 11-12). Patient had a TURP for BPH last month. Patient subsequently admitted in the hospital a few days later for possible prostatitis, hyponatremia and constipation. Urine cultures no growth. Patient discharged on Cipro course. Patient had a followup with his urologist a few days ago/ Voiding adequately, very happy with result as per records. Early this morning the patient woke up, had trouble urinating followed by bladder pain followed by blood clot passage. No fever, no chills. No chest pain, no shortness of breath. Brought to the Emergency Room, CBI initiated in the ER. MEDICAL HISTORY: As above. A 2D echo from October 2016 showed EF 55%-59%, mild mitral regurgitation. SURGERIES: He has had urologic procedures, appendectomy. HOME MEDICATIONS: Include atenolol, cyanocobalamin, Tegretol, naproxen, Prilosec, Zantac, Senokot. ALLERGIES: No drug allergies. FAMILY HISTORY: Asthma. PERSONAL AND SOCIAL HISTORY: Nonsmoker, no chronic intake of alcoholic beverages. 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 Originally from [facility]. REVIEW OF SYSTEMS: Could not be reliably obtained. PHYSICAL EXAMINATION: VITAL SIGNS: Blood pressure was noted to be 159/96, pulse rate 110 later 90, temperature 36.4, sats 98 on room air. GENERAL: Noted to be slightly anxious. No respiratory distress SKIN: Pallor, warm. HEENT: Pale palpebral conjunctivae, no ptosis. Dry mucosa. NECK: Supple. Nontender CHEST: Decreased breath sounds. No tenderness HEART: Regular rate and rhythm, no murmur. ABDOMEN: Some distention, nontender. Minimal hypogastric tenderness. EXTREMITIES: No edema. No tenderness, no gross deformities NEUROLOGIC: Coherent . No gross focality. LABORATORY DATA: Hemoglobin was 11.6, WBC 9, platelets 285. Sodium 136. K 3.3, chloride 104, CO2 22, BUN 70, creatinine 0.7, glucose was noted to be 148. UA, turbid, specific gravity 1.087. Positive for blood. No WBCs ASSESSMENT: 1. Painful hematuria. History of TURP last month. Etiology to be determined. hemoglobin stable at baseline for patient's chronic anemia 2. Chronic hyponatremia 3. hypokalemia 4. Hypertension, slightly elevated upon arrival in the ER. 5. Hx traumatic brain injury/hemorrhagic stroke as per records/hx intracranial vascular malformation. Patient still has to schedule [facility] [place]. 6. Seizure disorder stable on Carbamazepine regimen 7. Hyperglycemia rule out DM PLAN: Observation [facility] abdomen and pelvis. RE painful hematuria Continue continuous bladder irrigation CBI. Urology consult RE hematuria (ER provider already in touch with Dr. Allen.) replace potassium. Check hemoglobin A1c DVT prophylaxis SCDs RE hematuria, hx hemorrhagic CVA Full code. Patient's requesting for updates from providers. Mrs. Annie Chapman, contact numbers as follows : [phone]. [facility]
--- NOTE | 2017-10-16 08:20 | DIAGNOSTIC IMAGING REPORT ---
CT SCAN OF THE ABDOMEN AND PELVIS WITH IV CONTRAST CLINICAL HISTORY: Dysuria. Hematuria. COMPARISON STUDY: Abdominal CT dated 09/20/2017. TECHNIQUE: Following the IV administration of 119 cc of Optiray 320, CT scan of the abdomen and pelvis is performed from the lung bases to the proximal femora. Images are reviewed in the axial, sagittal, and coronal planes. IV contrast was administered without complication. A dose lowering technique was utilized adhering to the principles of ALARA. CT DOSE: 272.13 mGy.cm FINDINGS: Lung bases: The heart is enlarged and without pericardial effusion. The coronary arteries are densely calcified. The lung bases are clear noting dependent atelectasis. Liver: The contrast-enhanced liver is normal in size, contour, and attenuation. There is no intrahepatic biliary ductal dilatation. The hepatic veins and portal veins are patent. 2 hypodense hepatic lesions identified in the left lobe on image #92 and in the right lobe on image #112. These measure up to 1.6 cm and are unchanged from previous. These appear to demonstrate tiny foci of peripheral nodular enhancement and although incompletely characterized likely represent hemangiomas. Gallbladder: Unremarkable. Spleen: Normal in size and attenuation. Pancreas: Unremarkable. Adrenal glands: Unremarkable. Kidneys: The contrast enhanced kidneys demonstrate cortical atrophy and are without hydronephrosis. The kidneys enhance symmetrically. A 3.4 cm cyst is noted in the interpolar right kidney. Abdominal vasculature: The abdominal aorta is normal in course and caliber noting mild to moderate atherosclerotic calcification stenosis is suggested in the right superficial femoral artery. Bowel: There is moderate colonic fecal retention. No bowel obstruction is seen. The appendix is not identified. Peritoneum: There is no intraperitoneal free air or abdominal ascites. Lymphadenopathy: None. Pelvic viscera: A Bonilla catheter is in place. The bladder is distended and filled with hyperdense material. Foci of gas are seen within the bladder lumen. The prostate gland is enlarged and heterogeneous, measuring 5.2 cm in transverse diameter. Skeletal structures: The skeletal structures are osteopenic. Mild lumbosacral spondylosis is observed. There are bilateral pars defects at L5 with grade 1 anterolisthesis and disc space narrowing at L5-S1. No lytic or blastic lesions are seen. IMPRESSION: 1. A Obnilla catheter is in place. The bladder is distended and filled with hyperdense material which likely represents blood clots. Foci of gas are also noted within the bladder lumen and may be related to instrumentation. Correlation with urinalysis will be required. 2. Cardiomegaly. 3. Additional findings as above. Electronically signed by: Conor Rogers M.D. 10/16/2017 8:19 AM Dictated Date/Time: 10/16/2017 8:11 AM
[2017-10-16] MEDS ORDERED: NSS + 20MEQ KCL 1000ML 1,000 ML IV ONE (08:36)
[2017-10-16] MEDS: RANITIDINE HCL 150 MG TAB PO SCH ×2 (09:00→20:31)
[2017-10-16] MEDS: CARBAMAZEPINE 200 MG TAB PO SCH ×3 (09:01→20:30)
[2017-10-16] MEDS: PANTOprazole SOD 40 MG TAB PO SCH (09:01)
--- NOTE | 2017-10-16 11:27 | Urology Consultation ---
History General Date of Service: Oct 16, 2017. Primary Care Physician: Hermann Berger D.O. Pt seen a urologist before?: Yes If yes, why?: Post TURP History of Present Illness Patient is a 62-year-old white male who is approximately 1 month post transurethral resection of the prostate done by Dr. Whitney. Yesterday he developed gross hematuria and then went into clot retention. He was seen in the emergency room where a three-way catheter was placed. He says the bladder was irrigated. He continued to bleed so he was admitted by the hospitalist service. He does not speak [place] very much so I do not have much of a history from him. Currently the Bonilla is draining bloody urine. Laboratory Current Inpatient Medications Medications (Trade) Dose Ordered Sig/Debbie Route Start Time Stop Time Status Last Admin Dose Admin Atenolol (Tenormin Tab) 100 mg QAM PO 10/17/17 08:00 11/16/17 08:59 Potassium Chloride/Sodium Chloride 1,000 ml @ 75 mls/hr [id number] ONCE IV 10/16/17 08:36 10/16/17 21:55 10/16/17 09:00 75 MLS/HR Acetaminophen (Tylenol Tab) 650 mg Q4H PRN PO 10/16/17 06:45 11/15/17 06:44 Prochlorperazine Edisylate 5 mg/ Syringe 5 ml @ 1 mls/min Q6H PRN IV 10/16/17 06:45 11/15/17 06:44 10/16/17 09:00 1 MLS/MIN Oxycodone/ Acetaminophen (Percocet 5-325mg Tab) 1 tab Q6H PRN PO 10/16/17 06:45 10/30/17 06:44 Morphine Sulfate (MoRPHine SULFATE INJ) 4 mg Q3H PRN IV 10/16/17 06:45 10/30/17 06:44 Carbamazepine (Tegretol Tab) 300 mg BID@1400,2000 PO 10/16/17 14:00 11/15/17 13:59 Carbamazepine (Tegretol Tab) 400 mg QAM PO 10/16/17 08:30 11/15/17 08:59 10/16/17 09:01 400 MG Ranitidine HCl (zANTac TAB) 150 mg BID PO 10/16/17 08:30 11/15/17 08:59 10/16/17 09:00 150 MG Senna (Senokot Tab) 8.6 mg DAILY PRN PO 10/16/17 06:45 11/15/17 06:44 Pantoprazole Sodium (Protonix Tab) 40 mg QAM PO 10/16/17 08:30 11/15/17 08:59 10/16/17 09:01 40 MG Miscellaneous (Iv Fluids Completed) 1 ea PRN PRN N/A 10/16/17 06:45 10/16/18 06:44 Ioversol (Optiray 320) 100 ml UD PRN IV 10/16/17 06:45 10/20/17 06:44 Last Vital Signs Documentation Date Time Temp Pulse Resp B/P (MAP) Pulse Ox O2 Delivery O2 Flow Rate FiO2 10/16/17 08:00 36.4 71 18 156/71 100 Room Air Last 24 Hours Test 10/16/17 02:57 10/16/17 03:25 10/16/17 06:19 Urine Color RED Urine Appearance TURBID Urine pH 7.0 Urine Specific [place] 1.037 Urine Protein 4+ Urine Glucose (UA) 1+ Urine Ketones NEG Urine Occult Blood 2+ Urine Nitrite NEG Urine Bilirubin NEG Urine Urobilinogen NEG Urine Leukocyte Esterase NEG Urine RBC >30 /hpf Urine WBC >30 /hpf Urine Epithelial Cells 0-5 /lpf Urine Bacteria NEG White Blood Count 7.41 K/uL Red Blood Count 3.68 M/uL Hemoglobin 11.6 g/dL Hematocrit 32.8 % Mean Corpuscular Volume 89.1 fL Mean Corpuscular Hemoglobin 31.5 pg Mean Corpuscular Hemoglobin Concent 35.4 g/dl Platelet Count 285 K/uL Mean Platelet Volume 8.2 fL Neutrophils (%) (Auto) 71.2 % Lymphocytes (%) (Auto) 18.4 % Monocytes (%) (Auto) 7.7 % Eosinophils (%) (Auto) 2.0 % Basophils (%) (Auto) 0.3 % Neutrophils # (Auto) 5.28 K/uL Lymphocytes # (Auto) 1.36 K/uL Monocytes # (Auto) 0.57 K/uL Eosinophils # (Auto) 0.15 K/uL Basophils # (Auto) 0.02 K/uL RDW Standard Deviation 44.1 fL RDW Coefficient of Variation 13.4 % Immature Granulocyte % (Auto) 0.4 % Immature Granulocyte # (Auto) 0.03 K/uL Prothrombin Time 10.5 SECONDS Prothromb Time International Ratio 1.0 Activated Partial Thromboplast Time 22.1 SECONDS Partial Thromboplastin Ratio 0.9 Sodium Level 135 mmol/L Potassium Level 3.3 mmol/L Chloride Level 104 mmol/L Carbon Dioxide Level 22 mmol/L Anion Gap 9.0 mmol/L Blood Urea Nitrogen 17 mg/dl Creatinine 0.74 mg/dl Est Creatinine Clear Calc Drug Dose 85.6 ml/min Estimated GFR () 113.8 Estimated GFR (Non- 98.2 BUN/Creatinine Ratio 22.4 Random Glucose 148 mg/dl Calcium Level 8.2 mg/dl Chemistry Specimen Hemolysis Magnesium Level 2.1 mg/dl Total Bilirubin 0.2 mg/dl Direct Bilirubin < 0.1 mg/dl Aspartate Amino Transf (AST/SGOT) 17 U/L Alanine Aminotransferase (ALT/SGPT) 20 U/L Alkaline Phosphatase 105 U/L Total Protein 6.7 gm/dl Albumin 3.4 gm/dl Carbamazepine (Tegretol) Level 10.8 mcg/ml Problem List Medical Problems: (1) Abdominal pain Status: Acute (2) Constipation Status: Acute (3) Enlarged prostate Status: Acute (4) Hematuria Status: Acute (5) Hyponatremia Status: Acute (6) Nausea and vomiting Status: Acute (7) Urinary retention Status: Acute Past History BPH, GERD, urinary tract infection Past Surgical History: other Family History Cancer Heart disease Hypertension Seizures Social History Hx Tobacco Use In Past Year?: No Marital status: Occupation status: unemployed Immunizations History of Influenza Vaccine: No History of Tetanus Vaccine?: Unknown History of Pneumococcal: No History of Hepatitis B Vaccine: Unknown History of MDRO No Allergies Coded Allergies: NO KNOWN DRUG ALLERGIES (Verified Allergy, Mild, ., 09/19/17) [place] (Verified Allergy, Mild, ORANGE JUICE, 09/19/17) Uncoded Allergies: orange juice (Allergy, Intermediate, "allergic" per , 10/16/17) Medications Home Medications: Home Meds and Scripts Medications Dose Route/Sig Max Daily Dose Days Date Category Dose Instructions Senokot (Senna) 8.6 Mg Tab 8.6 Mg PO DAILY PRN 10/16/17 Reported Prilosec (Omeprazole) 20 Mg Capcr 20 Mg PO QAM 08/09/17 Reported Tegretol (Carbamazepine) 200 Mg Tab 400 Mg PO QAM 08/09/17 Reported Zantac (Ranitidine HCl) 150 Mg Tab 150 Mg PO BID 02/05/17 Reported B-12 (Cyanocobalamin) 1,000 Mcg Cap 1,000 Mcg PO QAM 06/19/15 Reported Carbamazepine 200 Mg Tab 300 Mg PO AFTERNOON & EVENING 03/09/14 Reported 1 & 2 tablet = 300mg Tenormin (Atenolol) 100 Mg Tab 100 Mg PO QAM 06/05/13 Reported Naprosyn (Naproxen) 500 Mg Tab 500 Mg PO BID 05/25/06 Reported Inpatient Medications: Current Inpatient Medications Medications (Trade) Dose Ordered Sig/Debbie Route Start Time Stop Time Status Last Admin Dose Admin Atenolol (Tenormin Tab) 100 mg QAM PO 10/17/17 08:00 11/16/17 08:59 Potassium Chloride/Sodium Chloride 1,000 ml @ 75 mls/hr [id number] ONCE IV 10/16/17 08:36 10/16/17 21:55 10/16/17 09:00 75 MLS/HR Acetaminophen (Tylenol Tab) 650 mg Q4H PRN PO 10/16/17 06:45 11/15/17 06:44 Prochlorperazine Edisylate 5 mg/ Syringe 5 ml @ 1 mls/min Q6H PRN IV 10/16/17 06:45 11/15/17 06:44 10/16/17 09:00 1 MLS/MIN Oxycodone/ Acetaminophen (Percocet 5-325mg Tab) 1 tab Q6H PRN PO 10/16/17 06:45 10/30/17 06:44 Morphine Sulfate (MoRPHine SULFATE INJ) 4 mg Q3H PRN IV 10/16/17 06:45 10/30/17 06:44 Carbamazepine (Tegretol Tab) 300 mg BID@1400,2000 PO 10/16/17 14:00 11/15/17 13:59 Carbamazepine (Tegretol Tab) 400 mg QAM PO 10/16/17 08:30 11/15/17 08:59 10/16/17 09:01 400 MG Ranitidine HCl (zANTac TAB) 150 mg BID PO 10/16/17 08:30 11/15/17 08:59 10/16/17 09:00 150 MG Senna (Senokot Tab) 8.6 mg DAILY PRN PO 10/16/17 06:45 11/15/17 06:44 Pantoprazole Sodium (Protonix Tab) 40 mg QAM PO 10/16/17 08:30 11/15/17 08:59 10/16/17 09:01 40 MG Miscellaneous (Iv Fluids Completed) 1 ea PRN PRN N/A 10/16/17 06:45 10/16/18 06:44 Ioversol (Optiray 320) 100 ml UD PRN IV 10/16/17 06:45 10/20/17 06:44 Review of Systems Review of Systems Additional Comments: Review of systems was done from the admission history and physical Physical Exam Vital Signs: Vital Signs Past 12 Hours Date Time Temp Pulse Resp B/P (MAP) Pulse Ox O2 Delivery O2 Flow Rate FiO2 10/16/17 08:00 36.4 71 18 156/71 100 Room Air 10/16/17 07:30 78 18 121/86 98 Room Air 10/16/17 06:41 93 22 99 Room Air 10/16/17 06:30 128/81 10/16/17 06:11 84 23 97 10/16/17 06:00 123/74 10/16/17 05:41 105 26 98 10/16/17 05:30 113/77 10/16/17 05:11 95 99 10/16/17 05:01 138/80 10/16/17 04:41 85 30 98 10/16/17 04:36 106 27 100 10/16/17 04:31 162/82 10/16/17 04:06 84 17 97 10/16/17 04:00 159/101 10/16/17 03:36 88 24 97 10/16/17 03:30 144/79 10/16/17 03:06 83 99 10/16/17 03:01 22 132/90 10/16/17 02:56 121 100 Room Air 10/16/17 02:46 109 100 10/16/17 02:44 159/96 10/16/17 02:40 36.4 111 45 159/96 100 Room Air Physical Exam: General Appearance: WD/WN, no apparent distress Eyes: bilateral eyes normal inspection ENT: hearing grossly normal Neck: supple Respiratory/Chest: chest non-tender, lungs clear, normal breath sounds, no respiratory distress Cardiovascular: regular rate, rhythm Gastrointestinal: Abdomen: normal abdomen Assessment & Plan Assessment & Plan Assessment Post TURP now with urinary clot retention. I irrigated the bladder free of clot with a liter of normal saline and then hooked up a normal saline continuous bladder irrigation. Irrigation should be kept running to keep the urine light pink. Bonilla can be irrigated as needed by hand.
[2017-10-16] MEDS ORDERED: BELLADONNA/OPIUM SUPP 60 MG SUPP PR PRN (11:30)
[2017-10-16 12:01] LABS: HEMATOCRIT 30.7 % (42-52); HEMOGLOBIN 10.6 g/dL (14.0-18.0)
--- NOTE | 2017-10-16 14:29 | Progress Note ---
Medicine Progress Note Date & Time of Visit: Oct 16, 2017 at 14:14. Subjective Pt was seen and examined Lying in bed with no distress Son was at bedside and was able to translate Pt said that he does not have any pain Spoke to urologist Dr. Allen that irrigated the bladder Denies any chest pain, palpitation and SOB Objective Last 8 Hrs Date Time Temp Pulse Resp B/P (MAP) Pulse Ox O2 Delivery O2 Flow Rate FiO2 10/16/17 08:00 36.4 71 18 156/71 100 Room Air 10/16/17 08:00 100 Room Air 10/16/17 07:30 78 18 121/86 98 Room Air 10/16/17 06:41 93 22 99 Room Air 10/16/17 06:30 128/81 Physical Exam: General- No acute distress Head- atraumatic Eyes- PERRL, EOMI ENT- oropharynx clear Neck- supple, no JVD Lungs- clear to auscultation Heart- regular rhythm Abdomen- normal bowel sounds, soft Extremities- no calf tenderness Neuro- alert, oriented x 3; PERRL Skin- warm & dry Laboratory Results: Last 24 Hours Test 10/16/17 02:57 10/16/17 03:25 10/16/17 06:19 10/16/17 11:50 Urine Color RED Urine Appearance TURBID Urine pH 7.0 Urine Specific [place] 1.037 Urine Protein 4+ Urine Glucose (UA) 1+ Urine Ketones NEG Urine Occult Blood 2+ Urine Nitrite NEG Urine Bilirubin NEG Urine Urobilinogen NEG Urine Leukocyte Esterase NEG Urine RBC >30 /hpf Urine WBC >30 /hpf Urine Epithelial Cells 0-5 /lpf Urine Bacteria NEG White Blood Count 7.41 K/uL Red Blood Count 3.68 M/uL Hemoglobin 11.6 g/dL 10.6 g/dL Hematocrit 32.8 % 30.7 % Mean Corpuscular Volume 89.1 fL Mean Corpuscular Hemoglobin 31.5 pg Mean Corpuscular Hemoglobin Concent 35.4 g/dl Platelet Count 285 K/uL Mean Platelet Volume 8.2 fL Neutrophils (%) (Auto) 71.2 % Lymphocytes (%) (Auto) 18.4 % Monocytes (%) (Auto) 7.7 % Eosinophils (%) (Auto) 2.0 % Basophils (%) (Auto) 0.3 % Neutrophils # (Auto) 5.28 K/uL Lymphocytes # (Auto) 1.36 K/uL Monocytes # (Auto) 0.57 K/uL Eosinophils # (Auto) 0.15 K/uL Basophils # (Auto) 0.02 K/uL RDW Standard Deviation 44.1 fL RDW Coefficient of Variation 13.4 % Immature Granulocyte % (Auto) 0.4 % Immature Granulocyte # (Auto) 0.03 K/uL Prothrombin Time 10.5 SECONDS Prothromb Time International Ratio 1.0 Activated Partial Thromboplast Time 22.1 SECONDS Partial Thromboplastin Ratio 0.9 Sodium Level 135 mmol/L Potassium Level 3.3 mmol/L Chloride Level 104 mmol/L Carbon Dioxide Level 22 mmol/L Anion Gap 9.0 mmol/L Blood Urea Nitrogen 17 mg/dl Creatinine 0.74 mg/dl Est Creatinine Clear Calc Drug Dose 85.6 ml/min Estimated GFR () 113.8 Estimated GFR (Non- 98.2 BUN/Creatinine Ratio 22.4 Random Glucose 148 mg/dl Calcium Level 8.2 mg/dl Chemistry Specimen Hemolysis Magnesium Level 2.1 mg/dl Total Bilirubin 0.2 mg/dl Direct Bilirubin < 0.1 mg/dl Aspartate Amino Transf (AST/SGOT) 17 U/L Alanine Aminotransferase (ALT/SGPT) 20 U/L Alkaline Phosphatase 105 U/L Total Protein 6.7 gm/dl Albumin 3.4 gm/dl Carbamazepine (Tegretol) Level 10.8 mcg/ml Date/Time Source Procedure Growth Status 10/16/17 02:57 Urine,Catheterized Urine Culture Pending Received Assessment & Plan Hematuria S/P TURP last month CT abd/pelvis showed bladder is distended and filled with hyperdense material which likely represents blood clots. Urology on board Case discussed with urologist recommended to continue bladder irrigation Hgb stable on admission 11.6 Hbg today 10.6 Continue monitor H/H Hypokalemia K replaced Continue monitor BMP Hypertension BP elevated Possible due to hospital setting Continue monitor BP History of traumatic brain injury Stable DVT px on SCDs CODE STATUS FULL CODE Current Inpatient Medications: Current Inpatient Medications Medications (Trade) Dose Ordered Sig/Debbie Route Start Time Stop Time Status Last Admin Dose Admin Atenolol (Tenormin Tab) 100 mg QAM PO 10/17/17 08:00 11/16/17 08:59 Potassium Chloride/Sodium Chloride 1,000 ml @ 75 mls/hr [id number] ONCE IV 10/16/17 08:36 10/16/17 21:55 10/16/17 09:00 75 MLS/HR Acetaminophen (Tylenol Tab) 650 mg Q4H PRN PO 10/16/17 06:45 11/15/17 06:44 Prochlorperazine Edisylate 5 mg/ Syringe 5 ml @ 1 mls/min Q6H PRN IV 10/16/17 06:45 11/15/17 06:44 10/16/17 09:00 1 MLS/MIN Oxycodone/ Acetaminophen (Percocet 5-325mg Tab) 1 tab Q6H PRN PO 10/16/17 06:45 10/30/17 06:44 Morphine Sulfate (MoRPHine SULFATE INJ) 4 mg Q3H PRN IV 10/16/17 06:45 10/30/17 06:44 Carbamazepine (Tegretol Tab) 300 mg BID@1400,2000 PO 10/16/17 14:00 11/15/17 13:59 10/16/17 13:25 300 MG Carbamazepine (Tegretol Tab) 400 mg QAM PO 10/16/17 08:30 11/15/17 08:59 10/16/17 09:01 400 MG Ranitidine HCl (zANTac TAB) 150 mg BID PO 10/16/17 08:30 11/15/17 08:59 10/16/17 09:00 150 MG Senna (Senokot Tab) 8.6 mg DAILY PRN PO 10/16/17 06:45 11/15/17 06:44 Pantoprazole Sodium (Protonix Tab) 40 mg QAM PO 10/16/17 08:30 11/15/17 08:59 10/16/17 09:01 40 MG Miscellaneous (Iv Fluids Completed) 1 ea PRN PRN N/A 10/16/17 06:45 10/16/18 06:44 Ioversol (Optiray 320) 100 ml UD PRN IV 10/16/17 06:45 10/20/17 06:44 Belladonna/Opium (B & O Adult Supp) 60 mg Q6 PRN [place] 10/16/17 11:30 10/30/17 11:29
[2017-10-16 15:17] VITALS: BP 126/73; PULSE 72; TEMP 36.7; O2SAT 97
[2017-10-16 23:38] VITALS: BP 153/78; PULSE 70; TEMP 36.7; O2SAT 98
[2017-10-17] VITALS: O2SAT 100
[2017-10-17 07:06] LABS: BASO % 0.1 %; BASO ABS # 0.01 K/uL (0-0.2); EOS % 0.8 %; EOS ABS # 0.06 K/uL (0-0.5); HEMATOCRIT 30.3 % (42-52); HEMOGLOBIN 10.1 g/dL (14.0-18.0); IG# 0.04 K/uL (0.00-0.02); LYMPH ABS # 1.36 K/uL (1.2-3.4); MEAN CELL VOLUME 90.7 fL (80-100); MEAN CORPUSCULAR HEMOGLOBIN 30.2 pg (25-34); MEAN CORPUSCULAR HGB CONC 33.3 g/dl (32-36); MEAN PLATELET VOLUME 8.3 fL (7.4-10.4); MONO % 10.5 %; MONO ABS # 0.79 K/uL (0.11-0.59); NEUT % 70.1 %; NEUT ABS # 5.28 K/uL (1.4-6.5); PLATELET COUNT 262 K/uL (130-400); RED CELL DISTRIBUTION WIDTH CV 13.8 % (11.5-14.5); RED CELL DISTRIBUTION WIDTH SD 45.7 fL (36.4-46.3); WHITE BLOOD COUNT 7.54 K/uL (4.8-10.8)
[2017-10-17 07:16] LABS: HEMOGLOBIN A1C 5.2 % (4.5-5.6)
[2017-10-17 07:21] VITALS: BP 131/69; PULSE 75; TEMP 36.8; O2SAT 96
[2017-10-17 07:35] LABS: CREATININE 0.51 mg/dl (0.60-1.40); POTASSIUM 3.9 mmol/L (3.5-5.1)
[2017-10-17] MEDS: RANITIDINE HCL 150 MG TAB PO SCH ×2 (08:32→20:30)
[2017-10-17] MEDS: PANTOprazole SOD 40 MG TAB PO SCH (08:32)
[2017-10-17] MEDS: CARBAMAZEPINE 200 MG TAB PO SCH ×3 (08:33→20:30)
--- NOTE | 2017-10-17 09:13 | Progress Note ---
Subjective Date of Service: Oct 17, 2017. Subjective Pt evaluation today including: conversation w/ patient, chart review, lab review Voiding: poe catheter in place (patent, draining bright nichole colored urine with CBI running ) 62 yo male with gross hematuria s/p TURP 1 month ago. Pt continues to have bright nichole colored urine this morning with slow CBI running. No clots overnight per nursing. Pt states he feels OK with a thumbs us. H&H stable at 10.01 and 30.3. Problem List Medical Problems: (1) Abdominal pain Status: Acute (2) Constipation Status: Acute (3) Enlarged prostate Status: Acute (4) Hematuria Status: Acute (5) Hyponatremia Status: Acute (6) Nausea and vomiting Status: Acute (7) Urinary retention Status: Acute Review of Systems Constitutional: No fever, No chills Respiratory: No shortness of breath Cardiac: No chest pain Abdomen: No pain, No nausea, No vomiting Male : + hematuria Heme: No abnormal bleeding/bruising Objective Vital Signs Date Time Temp Pulse Resp B/P (MAP) Pulse Ox O2 Delivery O2 Flow Rate FiO2 10/17/17 07:21 36.8 75 18 131/69 (89) 96 Room Air 10/17/17 00:00 100 Room Air 10/16/17 23:38 36.7 70 17 153/78 (103) 98 Room Air 10/16/17 16:00 Room Air 10/16/17 15:17 36.7 72 18 126/73 (90) 97 Room Air Physical Exam General Appearance: no apparent distress Eyes: normal inspection ENT: hearing grossly normal Neck: no JVD Respiratory/Chest: no respiratory distress, no accessory muscle use Cardiovascular: no JVD Extremities: normal inspection Neurologic/Psychiatric: alert, normal mood/affect, oriented x 3 Skin: normal color Laboratory Results Last 24 Hours Test 10/16/17 11:50 10/17/17 06:48 Hemoglobin 10.6 g/dL 10.1 g/dL Hematocrit 30.7 % 30.3 % White Blood Count 7.54 K/uL Red Blood Count 3.34 M/uL Mean Corpuscular Volume 90.7 fL Mean Corpuscular Hemoglobin 30.2 pg Mean Corpuscular Hemoglobin Concent 33.3 g/dl Platelet Count 262 K/uL Mean Platelet Volume 8.3 fL Neutrophils (%) (Auto) 70.1 % Lymphocytes (%) (Auto) 18.0 % Monocytes (%) (Auto) 10.5 % Eosinophils (%) (Auto) 0.8 % Basophils (%) (Auto) 0.1 % Neutrophils # (Auto) 5.28 K/uL Lymphocytes # (Auto) 1.36 K/uL Monocytes # (Auto) 0.79 K/uL Eosinophils # (Auto) 0.06 K/uL Basophils # (Auto) 0.01 K/uL RDW Standard Deviation 45.7 fL RDW Coefficient of Variation 13.8 % Immature Granulocyte % (Auto) 0.5 % Immature Granulocyte # (Auto) 0.04 K/uL Sodium Level 135 mmol/L Potassium Level 3.9 mmol/L Chloride Level 101 mmol/L Carbon Dioxide Level 26 mmol/L Anion Gap 7.0 mmol/L Blood Urea Nitrogen 8 mg/dl Creatinine 0.51 mg/dl Est Creatinine Clear Calc Drug Dose 124.2 ml/min Estimated GFR () 132.6 Estimated GFR (Non- 114.4 BUN/Creatinine Ratio 16.2 Random Glucose 110 mg/dl Calcium Level 8.0 mg/dl Assessment and Plan A/P: Gross hematuria AFVSS. Pt with persistent gross hematuria today s/p TURP. Will continue CBI today. NPO after midnight for possible cysto with fulguration tomorrow. Will continue to follow along with primary service.
--- NOTE | 2017-10-17 09:32 | Medical Student: [facility] ---
Med Student Progress Note Date of Service Oct 17, 2017. Subjective Pt evaluation today including: conversation w/ patient (language barrier), physical exam, lab review, review of studies Voiding: poe catheter in place (3-way with CBI) Language barrier, no family at bedside. Appears to be in no acute distress. RN at bedside, states patient has not required pain medication today. Review of Systems Constitutional: No fever, No chills Respiratory: No shortness of breath Cardiac: No chest pain Abdomen: No pain Objective Vital Signs Date Time Temp Pulse Resp B/P (MAP) Pulse Ox O2 Delivery O2 Flow Rate FiO2 10/17/17 07:21 36.8 75 18 131/69 (89) 96 Room Air 10/17/17 00:00 100 Room Air 10/16/17 23:38 36.7 70 17 153/78 (103) 98 Room Air 10/16/17 16:00 Room Air 10/16/17 15:17 36.7 72 18 126/73 (90) 97 Room Air Physical Exam General Appearance: WD/WN, no apparent distress ENT: hearing grossly normal Neck: no JVD Respiratory/Chest: normal breath sounds Abdomen: non tender, soft Extremities: normal inspection Neurologic/Psychiatric: alert, normal mood/affect, oriented x 3 Skin: warm/dry, no rash Comments: CBI - bright red with clots. Laboratory Results Last 24 Hours Test 10/16/17 11:50 10/17/17 06:48 Hemoglobin 10.6 g/dL 10.1 g/dL Hematocrit 30.7 % 30.3 % White Blood Count 7.54 K/uL Red Blood Count 3.34 M/uL Mean Corpuscular Volume 90.7 fL Mean Corpuscular Hemoglobin 30.2 pg Mean Corpuscular Hemoglobin Concent 33.3 g/dl Platelet Count 262 K/uL Mean Platelet Volume 8.3 fL Neutrophils (%) (Auto) 70.1 % Lymphocytes (%) (Auto) 18.0 % Monocytes (%) (Auto) 10.5 % Eosinophils (%) (Auto) 0.8 % Basophils (%) (Auto) 0.1 % Neutrophils # (Auto) 5.28 K/uL Lymphocytes # (Auto) 1.36 K/uL Monocytes # (Auto) 0.79 K/uL Eosinophils # (Auto) 0.06 K/uL Basophils # (Auto) 0.01 K/uL RDW Standard Deviation 45.7 fL RDW Coefficient of Variation 13.8 % Immature Granulocyte % (Auto) 0.5 % Immature Granulocyte # (Auto) 0.04 K/uL Sodium Level 135 mmol/L Potassium Level 3.9 mmol/L Chloride Level 101 mmol/L Carbon Dioxide Level 26 mmol/L Anion Gap 7.0 mmol/L Blood Urea Nitrogen 8 mg/dl Creatinine 0.51 mg/dl Est Creatinine Clear Calc Drug Dose 124.2 ml/min Estimated GFR () 132.6 Estimated GFR (Non- 114.4 BUN/Creatinine Ratio 16.2 Random Glucose 110 mg/dl Calcium Level 8.0 mg/dl Assessment and Plan Assessment and Plan: Gross hematuria with clots Increase flow and continue CBI Okay to hand irrigate for clots PRN NPO after midnight for possible surgical intervention tomorrow Continued [facility] stay due to: voiding difficulties
[2017-10-17 10:18] VITALS: O2SAT 100
[2017-10-17] MEDS: SENNA 8.6 MG TAB PO PRN (11:18)
[2017-10-17 16:11] VITALS: BP 138/82; PULSE 75; TEMP 36.9; O2SAT 97
--- NOTE | 2017-10-17 16:31 | Progress Note ---
Medicine Progress Note Date & Time of Visit: Oct 17, 2017 at 16:25. Subjective Pt was seen and examined Lying in bed with no distress Pt said used the chart to communicate He would like to go home today He said that he does not have any pain Bladder irrigation continue with nichole colored urine Objective Last 8 Hrs Date Time Temp Pulse Resp B/P (MAP) Pulse Ox O2 Delivery O2 Flow Rate FiO2 10/17/17 16:11 36.9 75 18 138/82 (100) 97 Room Air 10/17/17 10:18 100 Room Air Physical Exam: General- No acute distress Head- atraumatic Eyes- PERRL, EOMI ENT- oropharynx clear Neck- supple, no JVD Lungs- clear to auscultation Heart- regular rhythm Abdomen- normal bowel sounds, soft Extremities- no calf tenderness Neuro- alert, oriented x 3; PERRL Skin- warm & dry Laboratory Results: Last 24 Hours Test 10/17/17 06:48 White Blood Count 7.54 K/uL Red Blood Count 3.34 M/uL Hemoglobin 10.1 g/dL Hematocrit 30.3 % Mean Corpuscular Volume 90.7 fL Mean Corpuscular Hemoglobin 30.2 pg Mean Corpuscular Hemoglobin Concent 33.3 g/dl Platelet Count 262 K/uL Mean Platelet Volume 8.3 fL Neutrophils (%) (Auto) 70.1 % Lymphocytes (%) (Auto) 18.0 % Monocytes (%) (Auto) 10.5 % Eosinophils (%) (Auto) 0.8 % Basophils (%) (Auto) 0.1 % Neutrophils # (Auto) 5.28 K/uL Lymphocytes # (Auto) 1.36 K/uL Monocytes # (Auto) 0.79 K/uL Eosinophils # (Auto) 0.06 K/uL Basophils # (Auto) 0.01 K/uL RDW Standard Deviation 45.7 fL RDW Coefficient of Variation 13.8 % Immature Granulocyte % (Auto) 0.5 % Immature Granulocyte # (Auto) 0.04 K/uL Sodium Level 135 mmol/L Potassium Level 3.9 mmol/L Chloride Level 101 mmol/L Carbon Dioxide Level 26 mmol/L Anion Gap 7.0 mmol/L Blood Urea Nitrogen 8 mg/dl Creatinine 0.51 mg/dl Est Creatinine Clear Calc Drug Dose 124.2 ml/min Estimated GFR () 132.6 Estimated GFR (Non- 114.4 BUN/Creatinine Ratio 16.2 Random Glucose 110 mg/dl Calcium Level 8.0 mg/dl Assessment & Plan Hematuria S/P TURP last month CT abd/pelvis showed bladder is distended and filled with hyperdense material which likely represents blood clots. Urology on board Case discussed with urologist recommended to continue bladder irrigation Hgb stable on admission 11.6 Hbg today 10.6 Continue monitor H/H / Continue bladder irrigation Denies any pain Urology on board plan for possible cysto with fulguration tomorrow Will make NPO after midnight Hgb stable Hypokalemia K stable Continue monitor BMP Hypertension BP stable Continue monitor BP History of traumatic brain injury Stable DVT px on SCDs CODE STATUS FULL CODE Continued [facility] stay due to: voiding difficulties Current Inpatient Medications: Current Inpatient Medications Medications (Trade) Dose Ordered Sig/Debbie Route Start Time Stop Time Status Last Admin Dose Admin Atenolol (Tenormin Tab) 100 mg QAM PO 10/17/17 08:00 11/16/17 08:59 10/17/17 08:32 100 MG Acetaminophen (Tylenol Tab) 650 mg Q4H PRN PO 10/16/17 06:45 11/15/17 06:44 Prochlorperazine Edisylate 5 mg/ Syringe 5 ml @ 1 mls/min Q6H PRN IV 10/16/17 06:45 11/15/17 06:44 10/16/17 09:00 1 MLS/MIN Oxycodone/ Acetaminophen (Percocet 5-325mg Tab) 1 tab Q6H PRN PO 10/16/17 06:45 10/30/17 06:44 Morphine Sulfate (MoRPHine SULFATE INJ) 4 mg Q3H PRN IV 10/16/17 06:45 10/30/17 06:44 Carbamazepine (Tegretol Tab) 300 mg BID@1400,2000 PO 10/16/17 14:00 11/15/17 13:59 10/17/17 14:15 300 MG Carbamazepine (Tegretol Tab) 400 mg QAM PO 10/16/17 08:30 11/15/17 08:59 10/17/17 08:33 400 MG Ranitidine HCl (zANTac TAB) 150 mg BID PO 10/16/17 08:30 11/15/17 08:59 4/2/18 08:32 150 MG Senna (Senokot Tab) 8.6 mg DAILY PRN PO 10/16/17 06:45 11/15/17 06:44 10/17/17 11:18 8.6 MG Pantoprazole Sodium (Protonix Tab) 40 mg QAM PO 10/16/17 08:30 11/15/17 08:59 10/17/17 08:32 40 MG Miscellaneous (Iv Fluids Completed) 1 ea PRN PRN N/A 10/16/17 06:45 10/16/18 06:44 10/16/17 22:21 1 EA Ioversol (Optiray 320) 100 ml UD PRN IV 10/16/17 06:45 10/20/17 06:44 Belladonna/Opium (B & O Adult Supp) 60 mg Q6 PRN [place] 10/16/17 11:30 10/30/17 11:29
[2017-10-18 00:41] VITALS: BP 150/70; PULSE 75; TEMP 36.8; O2SAT 97
[2017-10-18] MEDS: PANTOprazole SOD 40 MG TAB PO SCH (07:23)
[2017-10-18] MEDS: CARBAMAZEPINE 200 MG TAB PO SCH ×3 (07:24→20:35)
--- NOTE | 2017-10-18 07:59 | Progress Note ---
Subjective Date of Service: Oct 18, 2017. Subjective Pt evaluation today including: conversation w/ patient, chart review Voiding: poe catheter in place (patent, draining light pink urine with CBI running) 62 yo male with gross hematuria s/p TURP. Pt upset this morning that his bed is wet. He c/o abdominal pain earlier this morning. Per RN, the pt had stopped his own CBI d/t pain and clotting in the catheter. The catheter was then irrigated for clot. Now draining light pink urine, and his pain has resolved. Some leaking noted around catheter per RN. H&H pending this morning. Problem List Medical Problems: (1) Abdominal pain Status: Acute (2) Constipation Status: Acute (3) Enlarged prostate Status: Acute (4) Hematuria Status: Acute (5) Hyponatremia Status: Acute (6) Nausea and vomiting Status: Acute (7) Urinary retention Status: Acute Review of Systems Constitutional: No fever, No chills Respiratory: No shortness of breath Cardiac: No chest pain Abdomen: No pain, No nausea, No vomiting Male : + hematuria Heme: No abnormal bleeding/bruising Objective Vital Signs Date Time Temp Pulse Resp B/P (MAP) Pulse Ox O2 Delivery O2 Flow Rate FiO2 10/18/17 00:41 36.8 75 18 150/70 (96) 97 Room Air 10/17/17 23:59 Room Air 10/17/17 16:11 36.9 75 18 138/82 (100) 97 Room Air 10/17/17 16:00 Room Air 10/17/17 10:18 100 Room Air Physical Exam General Appearance: no apparent distress Eyes: normal inspection ENT: hearing grossly normal Neck: no JVD Respiratory/Chest: no respiratory distress, no accessory muscle use Cardiovascular: no JVD Extremities: normal inspection Neurologic/Psychiatric: alert, normal mood/affect, oriented x 3 Skin: normal color Laboratory Results Last 24 Hours Test 10/18/17 04:44 Assessment and Plan A/P: Gross hematuria AFVSS. Pt with persistent gross hematuria s/p TURP. Continue CBI for now. The pt will also remain NPO until evaluated by Dr. Whitney later today. Possible cysto with fulguration if the pt continues to bleed and clot. Will continue to follow along with primary service. Continued [facility] stay due to: voiding difficulties
[2017-10-18] MEDS: RANITIDINE HCL 150 MG TAB PO SCH ×2 (08:15→20:35)
[2017-10-18 08:28] LABS: BASO % 0.2 %; BASO ABS # 0.01 K/uL (0-0.2); EOS ABS # 0.06 K/uL (0-0.5); HEMATOCRIT 31.6 % (42-52); HEMOGLOBIN 10.8 g/dL (14.0-18.0); IG# 0.02 K/uL (0.00-0.02); LYMPH % 22.2 %; LYMPH ABS # 1.33 K/uL (1.2-3.4); MEAN CELL VOLUME 88.3 fL (80-100); MEAN CORPUSCULAR HEMOGLOBIN 30.2 pg (25-34); MEAN CORPUSCULAR HGB CONC 34.2 g/dl (32-36); MEAN PLATELET VOLUME 8.4 fL (7.4-10.4); NEUT % 66.3 %; NEUT ABS # 3.97 K/uL (1.4-6.5); PLATELET COUNT 282 K/uL (130-400); RED CELL DISTRIBUTION WIDTH CV 13.2 % (11.5-14.5); RED CELL DISTRIBUTION WIDTH SD 42.7 fL (36.4-46.3); WHITE BLOOD COUNT 5.99 K/uL (4.8-10.8)
[2017-10-18 10:35] VITALS: O2SAT 100
[2017-10-18 14:45] VITALS: BP 100/61; PULSE 74; TEMP 36.9; O2SAT 100
[2017-10-18 16:20] VITALS: O2SAT 100
--- NOTE | 2017-10-18 18:45 | Progress Note ---
Medicine Progress Note Date & Time of Visit: Oct 18, 2017 at 11:40. Subjective Pt was seen and examined Sitting at the edge of the bed with no distress Feels much better since cath removed Would like to home tomorrow (Used the chart) Objective Last 8 Hrs Date Time Temp Pulse Resp B/P (MAP) Pulse Ox O2 Delivery O2 Flow Rate FiO2 10/18/17 14:45 36.9 74 20 100/61 (74) 100 Room Air Physical Exam: General- No acute distress Head- atraumatic Eyes- PERRL, EOMI ENT- oropharynx clear Neck- supple, no JVD Lungs- clear to auscultation Heart- regular rhythm Abdomen- normal bowel sounds, soft Extremities- no calf tenderness Neuro- alert, oriented x 3; PERRL Skin- warm & dry Laboratory Results: Last 24 Hours Test 10/18/17 08:11 White Blood Count 5.99 K/uL Red Blood Count 3.58 M/uL Hemoglobin 10.8 g/dL Hematocrit 31.6 % Mean Corpuscular Volume 88.3 fL Mean Corpuscular Hemoglobin 30.2 pg Mean Corpuscular Hemoglobin Concent 34.2 g/dl Platelet Count 282 K/uL Mean Platelet Volume 8.4 fL Neutrophils (%) (Auto) 66.3 % Lymphocytes (%) (Auto) 22.2 % Monocytes (%) (Auto) 10.0 % Eosinophils (%) (Auto) 1.0 % Basophils (%) (Auto) 0.2 % Neutrophils # (Auto) 3.97 K/uL Lymphocytes # (Auto) 1.33 K/uL Monocytes # (Auto) 0.60 K/uL Eosinophils # (Auto) 0.06 K/uL Basophils # (Auto) 0.01 K/uL RDW Standard Deviation 42.7 fL RDW Coefficient of Variation 13.2 % Immature Granulocyte % (Auto) 0.3 % Immature Granulocyte # (Auto) 0.02 K/uL Assessment & Plan Hematuria S/P TURP last month CT abd/pelvis showed bladder is distended and filled with hyperdense material which likely represents blood clots. Urology on board Case discussed with urologist recommended to continue bladder irrigation Hgb stable on admission 11.6 Hbg today 10.6 Continue monitor H/H 4/3 catheter discontinued due to pt having discomfort case discussed with Dr. Whitney Recommended to continue monitor Cysto cancelled for today If starting to have hematuria, will consider to get the cysto done tomorrow If pt develops any urinary retention overnight, ok to place poe Urology on board Monitor H/H Hypokalemia K stable Continue monitor BMP Hypertension BP stable Continue monitor BP History of traumatic brain injury Stable DVT px on SCDs CODE STATUS FULL CODE Continued [facility] stay due to: voiding difficulties Current Inpatient Medications: Current Inpatient Medications Medications (Trade) Dose Ordered Sig/Debbie Route Start Time Stop Time Status Last Admin Dose Admin Atenolol (Tenormin Tab) 100 mg QAM PO 10/17/17 08:00 11/16/17 08:59 10/18/17 07:26 100 MG Acetaminophen (Tylenol Tab) 650 mg Q4H PRN PO 10/16/17 06:45 11/15/17 06:44 10/17/17 18:24 650 MG Prochlorperazine Edisylate 5 mg/ Syringe 5 ml @ 1 mls/min Q6H PRN IV 10/16/17 06:45 11/15/17 06:44 10/16/17 09:00 1 MLS/MIN Oxycodone/ Acetaminophen (Percocet 5-325mg Tab) 1 tab Q6H PRN PO 10/16/17 06:45 10/30/17 06:44 Morphine Sulfate (MoRPHine SULFATE INJ) 4 mg Q3H PRN IV 10/16/17 06:45 10/30/17 06:44 Carbamazepine (Tegretol Tab) 300 mg BID@1400,2000 PO 10/16/17 14:00 11/15/17 13:59 10/18/17 13:55 300 MG Carbamazepine (Tegretol Tab) 400 mg QAM PO 10/16/17 08:30 11/15/17 08:59 10/18/17 07:24 400 MG Ranitidine HCl (zANTac TAB) 150 mg BID PO 10/16/17 08:30 11/15/17 08:59 10/18/17 08:15 150 MG Senna (Senokot Tab) 8.6 mg DAILY PRN PO 10/16/17 06:45 11/15/17 06:44 10/17/17 11:18 8.6 MG Pantoprazole Sodium (Protonix Tab) 40 mg QAM PO 4/1/18 08:30 11/15/17 08:59 10/18/17 07:23 40 MG Miscellaneous (Iv Fluids Completed) 1 ea PRN PRN N/A 10/16/17 06:45 10/16/18 06:44 10/16/17 22:21 1 EA Ioversol (Optiray 320) 100 ml UD PRN IV 10/16/17 06:45 10/20/17 06:44 Belladonna/Opium (B & O Adult Supp) [address] 10/16/17 11:30 10/30/17 11:29
[2017-10-19] VITALS: BP 143/73; PULSE 67; TEMP 36.6; O2SAT 98
[2017-10-19 06:48] LABS: BASO % 0.4 %; BASO ABS # 0.02 K/uL (0-0.2); EOS % 4.1 %; EOS ABS # 0.21 K/uL (0-0.5); HEMATOCRIT 29.2 % (42-52); HEMOGLOBIN 9.9 g/dL (14.0-18.0); IG# 0.02 K/uL (0.00-0.02); LYMPH % 31.7 %; LYMPH ABS # 1.64 K/uL (1.2-3.4); MEAN CELL VOLUME 88.5 fL (80-100); MEAN CORPUSCULAR HGB CONC 33.9 g/dl (32-36); MEAN PLATELET VOLUME 8.3 fL (7.4-10.4); MONO % 12.4 %; MONO ABS # 0.64 K/uL (0.11-0.59); NEUT ABS # 2.64 K/uL (1.4-6.5); PLATELET COUNT 259 K/uL (130-400); RED CELL DISTRIBUTION WIDTH CV 13.2 % (11.5-14.5); RED CELL DISTRIBUTION WIDTH SD 42.8 fL (36.4-46.3); WHITE BLOOD COUNT 5.17 K/uL (4.8-10.8)
[2017-10-19 06:58] VITALS: BP 159/76; PULSE 70; TEMP 36.7; O2SAT 96
[2017-10-19] MEDS: CARBAMAZEPINE 200 MG TAB PO SCH ×2 (08:04→14:25)
[2017-10-19] MEDS: RANITIDINE HCL 150 MG TAB PO SCH (08:04)
[2017-10-19] MEDS: PANTOprazole SOD 40 MG TAB PO SCH (08:04)
[2017-10-19] MEDS: SENNA 8.6 MG TAB PO PRN (09:25)
--- NOTE | 2017-10-19 10:52 | Progress Note ---
Subjective Date of Service: Oct 19, 2017. Subjective Pt evaluation today including: conversation w/ patient, chart review Voiding: no voiding problems 62 yo male with gross hematuria s/p TURP. Pt walking hallways this morning with RN. Trying to move bowels. Bon[place] catheter removed yesterday. Pt voiding on own. Small flecks of clot in urine per RN, but hematuria has improved. Pt denies pain. Problem List Medical Problems: (1) Abdominal pain Status: Acute (2) Constipation Status: Acute (3) Enlarged prostate Status: Acute (4) Hematuria Status: Acute (5) Hyponatremia Status: Acute (6) Nausea and vomiting Status: Acute (7) Urinary retention Status: Acute Review of Systems Constitutional: No fever, No chills Respiratory: No shortness of breath Cardiac: No chest pain Abdomen: No pain, No nausea, No vomiting Male : + hematuria Heme: No abnormal bleeding/bruising Objective Vital Signs Date Time Temp Pulse Resp B/P (MAP) Pulse Ox O2 Delivery O2 Flow Rate FiO2 10/19/17 07:30 Room Air 10/19/17 06:58 36.7 70 18 159/76 (103) 96 Room Air 10/19/17 00:00 36.6 67 18 143/73 (96) 98 Room Air 10/18/17 23:59 Room Air 10/18/17 16:20 100 Room Air 10/18/17 14:45 36.9 74 20 100/61 (74) 100 Room Air Physical Exam General Appearance: no apparent distress Eyes: normal inspection ENT: hearing grossly normal Neck: no JVD Respiratory/Chest: no respiratory distress, no accessory muscle use Cardiovascular: no JVD Extremities: normal inspection Neurologic/Psychiatric: alert, normal mood/affect, oriented x 3 Skin: normal color Laboratory Results Last 24 Hours Test 10/19/17 06:31 White Blood Count 5.17 K/uL Red Blood Count 3.30 M/uL Hemoglobin 9.9 g/dL Hematocrit 29.2 % Mean Corpuscular Volume 88.5 fL Mean Corpuscular Hemoglobin 30.0 pg Mean Corpuscular Hemoglobin Concent 33.9 g/dl Platelet Count 259 K/uL Mean Platelet Volume 8.3 fL Neutrophils (%) (Auto) 51.0 % Lymphocytes (%) (Auto) 31.7 % Monocytes (%) (Auto) 12.4 % Eosinophils (%) (Auto) 4.1 % Basophils (%) (Auto) 0.4 % Neutrophils # (Auto) 2.64 K/uL Lymphocytes # (Auto) 1.64 K/uL Monocytes # (Auto) 0.64 K/uL Eosinophils # (Auto) 0.21 K/uL Basophils # (Auto) 0.02 K/uL RDW Standard Deviation 42.8 fL RDW Coefficient of Variation 13.2 % Immature Granulocyte % (Auto) 0.4 % Immature Granulocyte # (Auto) 0.02 K/uL Assessment and Plan A/P: Gross hematuria AFVSS. Hematuria improved. Pt OK for d/c home from [facility]. Will arrange for outpatient f/u with Dr. Whitney. Discharge planning: home
--- NOTE | 2017-10-19 15:31 | Discharge Instructions ---
Discharge Instructions Date of Service Oct 19, 2017. Admission Reason for Admission: Hematuria Discharge Discharge Diagnosis / Problem: HEMATURIA /POST TURP Discharge Goals Goal(s): Decrease discomfort, Improve disease control, Diagnostic testing, Therapeutic intervention Activity Recommendations Activity Limitations: resume your previous activity . Instructions / Follow-Up Instructions / Follow-Up HOSPITAL FOLLOW UP 10/20/2017 @ 8: 45 AM Hermann Berger DO General Internal Medicine [facility] UROLOGY FOLLOW UP WITH DR CAMPBELL , OFFICE WILL CALL WITH APPOINTMENT DO NOT TAKE ASPIRIN , NAPROXEN , MOTRIN PLEASE NOTIFY UROLOGY /FAMILY PHYSICIAN WITH RECURRENCE OF BLOOD IN URINE Current Hospital Diet Patient's current hospital diet: AHA Diet (Heart Healthy) Discharge Diet Recommended Diet: AHA Diet (Heart Healthy) Pending Studies Studies pending at discharge: no Laboratory Results Hemoglobin A1c Test 10/16/17 03:25 Range/Units Estimated Average Glucose 103 mg/dl Hemoglobin A1c 5.2 4.5-5.6 % Medical Emergencies . Who to Call and When: Medical Emergencies: If at any time you feel your situation is an emergency, please call 911 immediately. . Non-Emergent Contact Non-Emergency issues call your: Primary Care Provider . . "Provider Documentation" section prepared by Olivia Marrero. .
--- NOTE | 2017-10-19 15:37 | Discharge Summary ---
Discharge Summary Date of Service Oct 19, 2017. Discharge Summary Admission Date: Oct 16, 2017 at 06:14 Discharge Date: Oct 19, 2017 Discharge Disposition: Home Principal Diagnosis: HEMATURIA /POST TURP Consultations: UROLOGY Medication Reconciliation Continued Medications: Atenolol (Tenormin) 100 Mg Tab 100 MG PO QAM, TAB Carbamazepine (Carbamazepine) 200 Mg Tab 300 MG PO afternoon & evening 1 & 1/2 tablet = 300mg Carbamazepine (Tegretol) 200 Mg Tab 400 MG PO QAM, TAB Cyanocobalamin (B-12) 1,000 Mcg Cap 1000 MCG PO QAM Omeprazole (Prilosec) 20 Mg Capcr 20 MG PO QAM, CAP Ranitidine (Zantac) 150 Mg Tab 150 MG PO BID, TAB Senna (Senokot) 8.6 Mg Tab 8.6 MG PO DAILY PRN for Constipation, TAB Discontinued Medications: Naproxen (Naprosyn) 500 Mg Tab 500 MG PO BID for Pain Referrals At Discharge Follow up Referrals: Urologist Referral - Within 1-2 Weeks with Bhargav Whitney M.D. Admission Information HPI (per Admitting provider): DATE OF ADMISSION: 10/16/2017 PRIMARY CARE PHYSICIAN: Dr. Berger. CHIEF COMPLAINT: Hematuria. HISTORY OF PRESENT ILLNESS: History obtained from patient, and records. Limited history basically secondary to language barrier. Medical history significant for seizure disorder, chronic hyponatremia, hx of hemorrhagic CVA, traumatic brain injury, intracranial vascular malformation as per records, learning disability as per records, BPH status post surgery, chronic anemia (baseline hemoglobin 11-12). Patient had a TURP for BPH last month. Patient subsequently admitted in the hospital a few days later for possible prostatitis, hyponatremia and constipation. Urine cultures no growth. Patient discharged on Cipro course. Patient had a followup with his urologist a few days ago/ Voiding adequately, very happy with result as per records. Early this morning the patient woke up, had trouble urinating followed by bladder pain followed by blood clot passage. No fever, no chills. No chest pain, no shortness of breath. Brought to the Emergency Room, CBI initiated in the ER. MEDICAL HISTORY: As above. A 2D echo from October 2016 showed EF 55%-59%, mild mitral regurgitation. SURGERIES: He has had urologic procedures, appendectomy. HOME MEDICATIONS: Include atenolol, cyanocobalamin, Tegretol, naproxen, Prilosec, Zantac, Senokot. ALLERGIES: No drug allergies. FAMILY HISTORY: Asthma. PERSONAL AND SOCIAL HISTORY: Nonsmoker, no chronic intake of alcoholic beverages. 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 Originally from [place]. Physical Exam (per Admitting): REVIEW OF SYSTEMS: Could not be reliably obtained. PHYSICAL EXAMINATION: VITAL SIGNS: Blood pressure was noted to be 159/96, pulse rate 110 later 90, temperature 36.4, sats 98 on room air. GENERAL: Noted to be slightly anxious. No respiratory distress SKIN: Pallor, warm. HEENT: Pale palpebral conjunctivae, no ptosis. Dry mucosa. NECK: Supple. Nontender CHEST: Decreased breath sounds. No tenderness HEART: Regular rate and rhythm, no murmur. ABDOMEN: Some distention, nontender. Minimal hypogastric tenderness. EXTREMITIES: No edema. No tenderness, no gross deformities NEUROLOGIC: Coherent . No gross focality. Hospital Course The to communicate as patient does not speak [employer] used No hematuria since this morning Evaluated by urology team stable to be discharged home outpatient urology follow-up will be arranged the office PHYSICAL EXAM General: No sign of distress HEENT: Sclera nonicteric Lungs: Clear to auscultate Heart: Regular S1-S2 Abdomen: Soft nontender Extremity: No lower extremity rash deformity Neurology: No evidence of focal neurological deficit ASSESSMENT AND PLAN HEMATURIA S/P TURP last month-by Dr. Whitney CT abd/pelvis showed bladder is distended and filled with hyperdense material which likely represents blood clots. Appreciate input from urology-patient was treated with continuous bladder irrigation Hemoglobin remained stable Hematuria resolved today Patient will be discharged home, asked not to take aspirin 81 mg daily outpatient follow-up with urology for cystoscopy Office will call with appointment HYPOKALEMIA K within normal limit HYPERTENSION BP stable DVT px on SCDs Avoid pharmacological anticoagulation secondary to hematuria CODE STATUS FULL CODE DISPOSITION Discharge home today Discharge Instructions Discharge Instructions Date of Service Oct 19, 2017. Admission Reason for Admission: Hematuria Discharge Discharge Diagnosis / Problem: HEMATURIA /POST TURP Discharge Goals Goal(s): Decrease discomfort, Improve disease control, Diagnostic testing, Therapeutic intervention Activity Recommendations Activity Limitations: resume your previous activity . Instructions / Follow-Up Instructions / Follow-Up HOSPITAL FOLLOW UP 10/20/2017 @ 8: 45 AM Hermann Berger DO General Internal Medicine [facility] UROLOGY FOLLOW UP WITH DR WHITNEY , OFFICE WILL CALL WITH APPOINTMENT DO NOT TAKE ASPIRIN , NAPROXEN , MOTRIN PLEASE NOTIFY UROLOGY /FAMILY PHYSICIAN WITH RECURRENCE OF BLOOD IN URINE Current Hospital Diet Patient's current hospital diet: AHA Diet (Heart Healthy) Discharge Diet Recommended Diet: AHA Diet (Heart Healthy) Pending Studies Studies pending at discharge: no Laboratory Results Hemoglobin A1c Test 10/16/17 03:25 Range/Units Estimated Average Glucose 103 mg/dl Hemoglobin A1c 5.2 4.5-5.6 % Medical Emergencies . Who to Call and When: Medical Emergencies: If at any time you feel your situation is an emergency, please call 911 immediately. . Non-Emergent Contact Non-Emergency issues call your: Primary Care Provider . . "Provider Documentation" section prepared by Olivia Marrero. . Additional Copies To Hermann Berger D.O.
[2017-10-19 16:24] VITALS: BP 159/76; PULSE 70; TEMP 36.7; O2SAT 96
== END 2017-10-19 17:25 | disposition home or self-care (01) ==
LOC: EDBD 02:36 → C.EDA 02:37 → C.MS4W 06:14 → ENRESERV 07:15
PROVIDERS: ADMIT Internal Medicine; ATTEND Hospitalist
DX: N99.89 Other postprocedural complications and disorders of genitourinary system (principal); R31.0 Gross hematuria; R33.8 Other retention of urine; E87.6 Hypokalemia; I10 Essential (primary) hypertension; R73.9 Hyperglycemia, unspecified; G40.909 Epilepsy, unspecified, not intractable, without status epilepticus; N40.1 Benign prostatic hyperplasia with lower urinary tract symptoms; Z82.49 Family history of ischemic heart disease and other diseases of the circulatory system; Z83.1 Family history of other infectious and parasitic diseases; Z79.899 Other long term (current) drug therapy; Z91.018 Allergy to other foods; Z86.73 Personal history of transient ischemic attack (TIA), and cerebral infarction without residual deficits; Z87.820 Personal history of traumatic brain injury; Z90.89 Acquired absence of other organs; Z82.0 Family history of epilepsy and other diseases of the nervous system

== ENCOUNTER 2025-03-06 03:52 | Inpatient (IN) ==
[2025-03-06 04:41] LABS: Hematocrit (blood only) 36.8 % (42.0-52.0); Hemoglobin 12.1 g/dl (14.0-18.0); Immature Granulocytes # (auto) 0.15 K/uL (0.01-0.20); Immature Granulocytes % (auto) 0.7 %; Mean Corpuscular Hemoglobin 29.9 pg (25.0-34.0); Mean Corpuscular Volume 90.9 fL (80.0-100.0); Platelet Count 355 K/uL (130-400); RDW Standard Deviation 45.4 fL (36.4-46.3); Red Blood Count 4.05 M/uL (4.70-6.10); White Blood Count 22.82 K/ul (4.8-10.8)
[2025-03-06 04:57] LABS: Alanine Aminotransferase 23.0 U/L (7-52); Albumin Globulin Ratio 1.2 (0.9-2); Alkaline Phosphatase 46.0 U/L (34-104); Anion Gap 11.0 (3-11); Bilirubin,Total 0.5 mg/dl (0.2-1.0); Blood Urea Nitrogen 14.0 mg/dl (6-23); Calcium 9.0 mg/dl (8.6-10.3); Carbon Dioxide 23.0 mmol/L (21-32); Chloride 103.0 mmol/L (98-107); Creatinine Clr Calc Pharmacy 68.4 ml/min; Globulin 3.3 gm/dl (2.5-4.0); Glucose 128.0 mg/dl (70-99(Fasting)); Lipase 23.0 U/L (11-82); Potassium 3.2 mmol/L (3.5-5.1); Sodium 137.0 mmol/L (136-145); Total Protein 7.2 gm/dl (6.0-8.3)
--- NOTE | 2025-03-06 05:38 | XRay Report ---
EXAM: XR chest 1V portable CLINICAL HISTORY: hypoxic, cough, PNA. TECHNIQUE: An X-ray image of the chest is obtained in AP projection. COMPARISON: Compared to the prior study dated 12/26/2021 FINDINGS: Lung [place]: Pulmonary hilar and basal opacities are seen, likely pneumonic versus pulmonary edema. No focal consolidation or cavitation is identified. Pleura: The left costophrenic angle is obliterated, suggesting a small pleural effusion. The right costophrenic angle is sharp. Cardiac Silhouette: Cardiomegaly is noted. Mediastinum and Trachea: Trachea is midline. Mediastinal contours are within normal limits for AP projection. Bones and Soft Tissues: Visualized bony structures are unremarkable. No rib fractures or lytic lesions. IMPRESSION: 1. Compared to the prior study dated 12/26/2021. 2. Pulmonary hilar and basal opacities are seen, likely pneumonic versus pulmonary edema. (newly present). 3. Left costophrenic angle blunting, suggestive of a pleural effusion. (more demonstrated). 4. Cardiomegaly. 5. Follow-up X-ray/ CT is recommended. Electronically signed by Marquis Maria 03-06-2025 05:37 AM
--- NOTE | 2025-03-06 05:58 | Emergency Department Note ---
Impression & Plan Hypoxia, CHF exacerbation, Pneumonia, Elevated troponin ED Provider Note NAME: JOANNE BALDWIN AGE: 70 SEX: M : 1955 ARRIVES VIA: Walk-In INFORMANT: Patient, ED PROVIDER(S): Unique Curtis MD CHIEF COMPLAINT: Arm pain, cough HPI: This is a 70-year-old Syrian-speaking male presenting for bilateral arm pain/cough. Patient's had a 1+ year history of arm pain bilaterally. He is had increasing symptoms over the past few weeks. He did see his primary care doctor for this. Scheduled for an MRI of his neck for further evaluation of the bilateral arm pain. This afternoon/evening he had increasing arm pain as well as increasing cough. He presents with his who translates. 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 He has had no reported shortness of breath or exertional dyspnea. No orthopnea. states that he has been placed on steroids for his cough. ROS: See above HPI for pertinent positives & negatives. A total of 10 systems reviewed and were otherwise negative. PAST MEDICAL HISTORY: See Below PAST SURGICAL HISTORY: See Below FAMILY HISTORY: See Below SOCIAL HISTORY: See Below HOME MEDICATIONS: See Below ALLERGIES: See Below VITALS: See Below PHYSICAL EXAMINATION: General: resting comfortably in no acute distress Head: Normocephalic and atraumatic Eyes: Normal inspection, extraocular muscles intact Ear, nose, throat: Normal external exam Neck: Normal range of motion Respiratory: lungs clear to auscultation bilaterally Cardiovascular: Regular rate/rhythm, no murmur GI: soft, nontender, no guarding or rebound Extremities: nontender, moves all extremities, 2+ pulses Neuro: The patient awake and alert, appropriately conversive, no focal deficits, symmetric faces Skin: Warm, dry, and intact MEDICAL DECISION MAKING: This is a 70-year-old male present for bilateral arm pain/cough. Low concern for dissection clinically. 1+ year history. Patient is presently hypoxic to 88% with a worsening cough. Consider infectious etiology. No reported chest pain however. -ECG independently interpreted by me with normal sinus rhythm, rate of 87,,, normal QRS, normal QTc, no ST segment elevations consistent with STEMI criteria T waves in the inferolateral leads - Chest Xray independently interpreted by me showing bilateral opacities concerning for pneumonia, no obvious pneumothorax noted -Blood work does reveal a leukocytosis of 22. Troponin is elevated at 73.7. - With new oxygen requirement, signs of pneumonia and elevated troponin, likely demand, will admit to the hospital for further evaluation and treatment. Differential diagnosis: Cervical radiculopathy, pneumonia, CHF, sepsis, ACS, PE Independent History obtained from: Diagnostics interpreted by me: ECG: See above Cardiac Monitoring: An order was placed for continuous cardiac monitoring. The monitor shows a rate of 78 with sinus rhythm. Past Med/Surg History Problem List (Updated 03/06/25 @ 15:21 by Unique Curtis MD) Elevated troponin (Acute) Pneumonia (Acute) CHF exacerbation (Acute) Hypoxia (Acute) Hypokalemia NSTEMI (non-ST elevated myocardial infarction) Benign prostatic hyperplasia with urinary obstruction Heart disease History of urinary retention Seizure disorder Moderate mitral regurgitation (Acute) Hypertension (Chronic) Seizures (Chronic) Abdominal pain (Acute) Enlarged prostate (Acute) Hematuria Hyponatremia Nausea and vomiting (Acute) Orthostasis (Acute) Syncope (Acute) Urinary retention (Acute) Family History Mother Cardiac disorder Father Cardiac disorder Sister Breast cancer Brother Leukemia Social History Smoking Status: Never smoker Hx Alcohol Use: No Hx Substance Use: No Preferred Language: [place] [employer] Game W[employer] Required: Yes Beliefs That Will Affect Care: None Current Living Situation: Spouse Current Living Situation Comment: Apartment Feels Safe at Home: Yes Assistive Devices: None Allergies Allergies Allergy/AdvReac Type Severity Reaction Status Date / Time No Known Drug Allergies Allergy Mild . Verified 12/26/21 16:09 orange Allergy Mild ORANGE Verified 12/26/21 16:09 JUICE orange juice Allergy Intermediate "allergic" Uncoded 12/26/21 16:09 per Home Meds Home Medications Medication Instructions Recorded Confirmed alendronate 70 mg tablet 70 mg PO WK 03/06/25 03/06/25 aspirin 81 mg tablet,delayed 81 mg PO DAILY 03/06/25 03/06/25 release atenolol 50 mg tablet 50 mg PO DAILY 03/06/25 03/06/25 lamotrigine 100 mg tablet 200 mg PO UD 03/06/25 03/06/25 naproxen 500 mg tablet 500 mg PO BID 03/06/25 03/06/25 omeprazole 40 mg capsule,delayed 40 mg PO DAILY 03/06/25 03/06/25 release prednisone 10 mg tablet 10 mg PO UD 03/06/25 03/06/25 rosuvastatin 10 mg tablet 10 mg PO DAILY 03/06/25 03/06/25 Results & Data (ED) Vital Signs Vital Signs - 24 hr 03/06/25 03:55 03/06/25 04:01 03/06/25 04:07 Temperature 36.5 C Temperature Source Temporal Artery Scan Pulse Rate 79 Pulse Rate [Right Finger] 89 Pulse Rhythm Regular Pulse Strength Normal Respiratory Rate 22 18 Respiratory Effort / Characteristics Non-Labored Spontaneous Respiratory Depth Normal Normal Respiratory Pattern Regular Blood Pressure 138/77 Blood Pressure [Right Arm] 134/84 Blood Pressure Mean 97 Blood Pressure Mean [Right Arm] 100 Blood Pressure Position Sitting Pulse Oximetry 96 93 88 L Oxygen Delivery Method Room Air Room Air Room Air Oxygen Flow Rate Sepsis Recent Fever Within 48 Hours No Sepsis New/Unexplained Change in Mental Status No Sepsis Action Taken by Nursing No Action Required 03/06/25 04:17 03/06/25 04:30 03/06/25 05:54 Temperature Temperature Source Pulse Rate 91 H Pulse Rate [Right Finger] Pulse Rhythm Pulse Strength Respiratory Rate Respiratory Effort / Characteristics Respiratory Depth Respiratory Pattern Blood Pressure Blood Pressure [Right Arm] Blood Pressure Mean Blood Pressure Mean [Right Arm] Blood Pressure Position Pulse Oximetry 88 L 99 Oxygen Delivery Method Room Air Nasal Cannula Oxygen Flow Rate 2 Sepsis Recent Fever Within 48 Hours Sepsis New/Unexplained Change in Mental Status Sepsis Action Taken by Nursing Laboratory Data 03/06/25 04:28 03/06/25 04:28 Lab Results 03/06/25 03/06/25 Range/Units 04:28 06:20 WBC 22.82 H (4.8-10.8) K/ul RBC 4.05 L (4.70-6.10) M/uL Hgb 12.1 L (14.0-18.0) g/dl Hct 36.8 L (42.0-52.0) % MCV 90.9 (80.0-100.0) fL MCH 29.9 (25.0-34.0) pg MCHC 32.9 (32.0-36.0) g/dL RDW Std Deviation 45.4 (36.4-46.3) fL RDW Coeff of Madalyn 13.6 (11.5-14.5) % Plt Count 355 (130-400) K/uL MPV 9.6 (9.4-12.4) fL Immature Gran % (Auto) 0.7 % Neut % (Auto) 77.4 % Lymph % (Auto) 17.0 % [place] % (Auto) 4.4 % Eos % (Auto) 0.3 % Baso % (Auto) 0.2 % Neut # (Auto) 17.67 H (1.40-6.50) K/uL Lymph # (Auto) 3.88 H (1.20-3.40) K/uL [place] # (Auto) 1.00 H (0.11-0.59) K/uL Eos # (Auto) 0.07 (0.00-0.50) K/uL Baso # (Auto) 0.05 (0.00-0.20) K/uL Immature Gran # (Auto) 0.15 (0.01-0.20) K/uL PT 10.4 (9.0-12.0) Seconds INR 1.0 (0.9-1.1) Sodium 137 (136-145) mmol/L Potassium 3.2 L (3.5-5.1) mmol/L Chloride 103 (98-107) mmol/L Carbon Dioxide 23 (21-32) mmol/L Anion Gap 11 (3-11) BUN 14 (6-23) mg/dl Creatinine 0.83 (0.6-1.4) mg/dl Est Cr Clr Drug Dosing 68.4 ml/min eGFR 93.57 BUN/Creatinine Ratio 16.9 (10-20) Glucose 128 H (70-99(Fasting)) mg/dl Calcium 9.0 (8.6-10.3) mg/dl Total Bilirubin 0.5 (0.2-1.0) mg/dl AST 15 (13-39) U/L ALT 23 (7-52) U/L Alkaline Phosphatase 46 (34-104) U/L Troponin I High Sens 73.7 H* 707.3 H* D (0-20) pg/ml Total Protein 7.2 (6.0-8.3) gm/dl Albumin 3.9 (3.4-5.0) gm/dl Globulin 3.3 (2.5-4.0) gm/dl Albumin/Globulin Ratio 1.2 (0.9-2) Lipase 23 (11-82) U/L Administered Medications Acetaminophen (Acetaminophen 325 Mg Tab) 650 mg PO Q4H PRN PRN Reason: Pain or Fever Stop: 04/05/25 10:04 Last Admin: 03/06/25 14:23 Dose: 650 mg Documented By: GRACE Alendronate Sodium (Alendronate Sodium 70 Mg Tab) 70 mg PO We@0700 [facility] Stop: 04/05/25 10:59 Last Admin: 03/06/25 10:41 Dose: 70 mg Documented By: GRACE Aspirin (Aspirin 81 Mg Ectab) 81 mg PO DAILY [facility] Stop: 04/05/25 10:14 Last Admin: 03/06/25 10:44 Dose: 81 mg Documented By: GRACE Atenolol (Atenolol 50 Mg Tablet) 50 mg PO DAILY KATIE Stop: 04/05/25 10:44 Last Admin: 03/06/25 10:53 Dose: 50 mg Documented By: GRACE Guaifenesin/Dextromethorphan (Guaifenesin/Dextrom Syrup 100mg/10mg 5ml Udc) 5 ml PO Q6H PRN PRN Reason: Cough Stop: 04/05/25 10:04 Last Admin: 03/06/25 10:27 Dose: 5 ml Documented By: GRACE Heparin Sodium/Dextrose (Heparin 98312 Unit/500 Ml D5w) 25,000 units in 500 mls @ 22 mls/hr IV .[id number] KATIE; Protocol Stop: 04/05/25 07:44 Last Admin: 03/06/25 08:03 Dose: 1,100 units/hr, 22 mls/hr Documented By: gini Co-signed By: JERMAINE Sodium Chloride (Nss) 1,000 mls @ 80 mls/hr IV .[id number] [facility] Stop: 03/09/25 10:29 Last Admin: 03/06/25 10:40 Dose: 80 mls/hr Documented By: GRACE Lamotrigine (Lamotrigine 100 Mg Tab) 200 mg PO QAM KATIE; Protocol Stop: 04/05/25 10:29 Last Admin: 03/06/25 10:39 Dose: 200 mg Documented By: GRACE Pantoprazole Sodium (Pantoprazole 40 Mg Tab) 40 mg PO DAILY KATIE Stop: 04/05/25 10:29 Last Admin: 03/06/25 10:39 Dose: 40 mg Documented By: GRACE Rosuvastatin Calcium (Rosuvastatin Calcium 10 Mg Tab) 10 mg PO DAILY KATIE Stop: 04/05/25 10:29 Last Admin: 03/06/25 10:39 Dose: 10 mg Documented By: GRACE Discontinued Medications Aspirin (Aspirin 81 Mg Chew) 324 mg PO NOW STA Stop: 03/06/25 07:37 Last Admin: 03/06/25 08:02 Dose: 324 mg Documented By: gini Benzonatate (Benzonatate 100 Mg Capsule) 100 mg PO NOW ONE Stop: 03/06/25 13:39 Last Admin: 03/06/25 14:23 Dose: 100 mg Documented By: GRACE Fentanyl Citrate (Fentanyl Citrate Pf 100 Mcg/2 Ml Vial) Confirm Administered Dose 100 mcg .ROUTE .STK-MED ONE Stop: 03/06/25 11:20 Last Increment: 03/06/25 12:29 Dose: 75 mcg Documented By: WILLIAM Furosemide (Furosemide Inj 20 Mg/2 Ml Vial) 20 mg IV ONE ONE Stop: 03/06/25 08:49 Last Admin: 03/06/25 08:56 Dose: 20 mg Documented By: gini Heparin Sodium (Porcine) (Heparin Sod (Porcine) 1000 Unit/Ml) 5,000 units IV NOW ONE Stop: 03/06/25 07:36 Last Admin: 03/06/25 08:02 Dose: 5,000 units Documented By: gini Co-signed By: JERMAINE Heparin Sodium (Porcine) (Heparin (Porcine) 1000 Unit/Ml 10 Ml (Veneer Taper Use Only)) Confirm Administered Dose 10,000 units .ROUTE .STK-MED ONE Stop: 03/06/25 11:19 Last Admin: 03/06/25 12:30 Dose: 5,000 units Documented By: WILLIAM Heparin Sodium/Dextrose (Heparin Iv Adult Wt-Based Standard W/ Initial Bolus Protocol) 1 each IV NOW STA; Protocol Stop: 03/06/25 07:21 Last Admin: 03/06/25 08:15 Dose: Not Given Documented By: gini Heparin Sodium/Sodium Chloride (Heparin In Nss Infusion 1000 Unit/500 Ml (2 U/Ml) Bag) Confirm Administered Dose 3,000 units IV .STK-MED ONE Stop: 03/06/25 11:20 Last Admin: 03/06/25 12:04 Dose: 3,000 units Documented By: WILLIAM Ceftriaxone Sodium (Rocephin) 2,000 mg in 50 mls @ 100 mls/hr IV NOW STA Stop: 03/06/25 06:02 Last Infusion: 03/06/25 06:42 Dose: Infused Documented By: Admin: 03/06/25 06:11 Dose: 100 mls/hr Documented By: ALEX Azithromycin (Zithromax) 500 mg in 255 mls @ 127.5 mls/hr IV NOW ONE Stop: 03/06/25 07:32 Last Infusion: 03/06/25 12:36 Dose: Infused Documented By: Admin: 03/06/25 06:44 Dose: 127.5 mls/hr Documented By: MARIPOSA Ioversol (Optiray 320 125ml) 120 ml IV ONCE ONE Stop: 03/06/25 07:57 Last Admin: 03/06/25 07:56 Dose: 120 ml Documented By: SEBASTIÁN Ioversol (Optiray 350) Confirm Administered Dose 1 ml .ROUTE .STK-MED ONE Stop: 03/06/25 11:21 Last Admin: 03/06/25 12:29 Dose: 100 ml Documented By: WILLIAM Midazolam HCl (Midazolam Hcl 1 Mg/Ml 2ml Vial) Confirm Administered Dose 2 mg .ROUTE .STK-MED ONE Stop: 03/06/25 11:19 Last Admin: 03/06/25 12:29 Dose: 2 mg Documented By: WILLIAM Nicardipine HCl (Nicardipine 2,000 Mcg/20 Ml Syr) Confirm Administered Dose 2,000 mcg .ROUTE .STK-MED ONE Stop: 03/06/25 11:21 Last Admin: 03/06/25 12:05 Dose: 2,000 mcg Documented By: WILLIAM Nitroglycerin/Dextrose (Nitroglycerin/D5w 100mcg/Ml 20ml Syr) Confirm Administered Dose 2,000 mcg .ROUTE .STK-MED ONE Stop: 03/06/25 11:20 Last Admin: 03/06/25 12:04 Dose: 2,000 mcg Documented By: WILLIAM Potassium Chloride (Potassium Chloride Crtab 20 Meq Tabcr) 40 meq PO NOW STA Stop: 03/06/25 07:43 Last Admin: 03/06/25 08:02 Dose: 40 meq Documented By: gini Potassium Chloride (Potassium Chloride Crtab 20 Meq Tabcr) 40 meq PO NOW STA Stop: 03/06/25 08:49 Last Admin: 03/06/25 09:11 Dose: 40 meq Documented By: gini Imaging Data Radiologist's Impression: Chest X-Ray 03/06/25 04:33 EXAM: XR chest 1V portable CLINICAL HISTORY: hypoxic, cough, PNA. TECHNIQUE: An X-ray image of the chest is obtained in AP projection. COMPARISON: Compared to the prior study dated 12/26/2021 FINDINGS: Lung [place]: Pulmonary hilar and basal opacities are seen, likely pneumonic versus pulmonary edema. No focal consolidation or cavitation is identified. Pleura: The left costophrenic angle is obliterated, suggesting a small pleural effusion. The right costophrenic angle is sharp. Cardiac Silhouette: Cardiomegaly is noted. Mediastinum and Trachea: Trachea is midline. Mediastinal contours are within normal limits for AP projection. Bones and Soft Tissues: Visualized bony structures are unremarkable. No rib fractures or lytic lesions. IMPRESSION: 1. Compared to the prior study dated 12/26/2021. 2. Pulmonary hilar and basal opacities are seen, likely pneumonic versus pulmonary edema. (newly present). 3. Left costophrenic angle blunting, suggestive of a pleural effusion. (more demonstrated). 4. Cardiomegaly. 5. Follow-up X-ray/ CT is recommended. Electronically signed by Marquis Maria 03-06-2025 05:37 AM Chest CTA 03/06/25 06:59 CT angio chest PE protocol CT DOSE: 755.33 mGy.cm HISTORY: PE. TECHNIQUE: Multiple CTA images of the chest were obtained after the intravenous administration of 120 ml Optiray. Coronal and sagittal MIPS were obtained from the axial data set and were submitted for review. All measurements were obtained according to NASCET criteria. A dose lowering technique was utilized adhering to the principles of ALARA. COMPARISON STUDY: 12/26/2021 FINDINGS: There is motion artifact due to difficulty breath holding. There is moderate cardiomegaly with pulmonary vascular congestion. There are small bilateral pleural effusions which layer dependently. There is diffuse septal thickening and mild scattered pulmonary groundglass opacity consistent with mild pulmonary edema. There is no pneumothorax. No enlarged adenopathy. No pericardial effusion. There are coronary artery calcifications. Ascending thoracic aorta measures 4 cm diameter, stable. No pulmonary embolism seen. No acute osseous findings. IMPRESSION: 1. No pulmonary embolism seen. 2. CHF with small bilateral pleural effusions and mild pulmonary edema. ACT 112: Negative or not required by law. The above report was generated using voice recognition software. It may contain grammatical, syntax or spelling errors. Electronically signed by: Randolph Boyer M.D. 03/06/2025 8:10 AM Discharge Plan Visit Data Chief Complaint: Arm Pain Stated Complaint: BOTH ARM PAIN ED Provider: Unique Curtis Discharge Problem: Hypoxia, CHF exacerbation, Pneumonia, Elevated troponin Patient Disposition: Admitted As Inpatient Condition: Fair Discharge Instructions Interventions: ED Discharge Assessment Last Done: 03/06/25 09:48 Discharge Problem: CHF exacerbation Qualifiers: Heart failure type: unspecified Qualified Code(s): I50.9 - Heart failure, unspecified Pneumonia Qualifiers: Pneumonia type: due to unspecified organism Laterality: bilateral Lung location: lower lobe of lung Qualified Code(s): J18.9 - Pneumonia, unspecified organism
[2025-03-06] MEDS: cefTRIAXone SODIUM 2,000 MG/50 ML BAG IV STA (06:11)
[2025-03-06] MEDS: AZITHROMYCIN 500 MG/255 ML BAG IV ONE (06:44)
[2025-03-06 07:46] LABS: INR 1.0 (0.9-1.1); Prothrombin Time 10.4 Seconds (9.0-12.0)
[2025-03-06] MEDS: OPTIRAY 320 125ml IV ONE (07:56)
[2025-03-06] MEDS: POTASSIUM CHLORIDE CRTAB 20 MEQ TABCR PO STA ×2 (08:02→09:11)
[2025-03-06] MEDS: HEPARIN SOD (PORCINE) 1000 UNIT/ML IV ONE (08:02)
[2025-03-06] MEDS: ASPIRIN 81 MG CHEW PO STA (08:02)
[2025-03-06] MEDS: HEPARIN 25000 UNIT/500 ML D5W 25,000 UNITS/500 ML BAG IV SCH (08:03)
--- NOTE | 2025-03-06 08:12 | CT Scan Report ---
CT angio chest PE protocol CT DOSE: 755.33 mGy.cm HISTORY: PE. TECHNIQUE: Multiple CTA images of the chest were obtained after the intravenous administration of 120 ml Optiray. Coronal and sagittal MIPS were obtained from the axial data set and were submitted for review. All measurements were obtained according to NASCET criteria. A dose lowering technique was u tilized adhering to the principles of ALARA. COMPARISON STUDY: 12/26/2021 FINDINGS: There is motion artifact due to difficulty breath holding. There is moderate cardiomegaly w ith pulmonary vascular congestion. There are small bilateral pleural effusions which layer dependentl y. There is diffuse septal thickening and mild scattered pulmonary groundglass opacity consistent wit h mild pulmonary edema. There is no pneumothorax. No enlarged adenopathy. No pericardial effusion. Th ere are coronary artery calcifications. Ascending thoracic aorta measures 4 cm diameter, stable. No p ulmonary embolism seen. No acute osseous findings. IMPRESSION: 1. No pulmonary embolism seen. 2. CHF with small bilateral pleural effusions and mild pulmonary edema. ACT 112: Negative or not required by law. The above report was generated using voice recognition software. It may contain grammatical, syntax o r spelling errors. Electronically signed by: Randolph Boyer M.D. 03/06/2025 8:10 AM
[2025-03-06] MEDS: Heparin IV Adult Wt-Based Standard w/ INITIAL Bolus Protocol IV STA (08:15)
--- NOTE | 2025-03-06 08:15 | History & Physical Report ---
Date of Service March 06, 2025 Assessment & Plan (1) NSTEMI (non-ST elevated myocardial infarction): Plan: 70-year-old male Japanese-speaking with past med history significant for hypercholesterolemia, hypertension, mild mitral regurgitation, cerebral cavernoma, history of CVA, cognitive deficit status poststroke, complex partial seizures, learning disorder, GERD, degenerative disc disease, migraine, was brought in by because of bilateral arm pain and cough. refused translation services. can speak [place] and she helped with H&P. As per patient having bilateral arm pain for a long time and he also followed with neurology and workup was unrevealing. Last 3 to 4 weeks bilateral arm pain got worse. Saw PCP recently and had neck x-ray done on 02/28/2025 which showed multilevel degenerative changes of spine and mild disc space narrowing with endplate degenerative changes. No acute fractures or subluxation noted. Also having cough for last 2 weeks. Mostly dry cough. PCP prescribed tapering prednisone which he is on currently for last 6 to 7 days. But last few days right arm pain became worse. Even lifting a towel he was complaining of severe pain in both arms. Because of ongoing bilateral arm pain brought him to the hospital today. When he is having severe pain he is also complaining of having pain all over the chest. Denies any shortness of breath. No fevers. In the ER he was hypoxic saturating 88% on room air requiring oxygen. Denies any headache. No neck pain. Has back pain. Vision is okay. No runny nose or sore throat. No difficulty swallowing. No nausea. No abdominal pain. Normal bowel and bladder movements.. Currently resting comfortably and hemodynamically stable. Non-ST elevated SD Came with bilateral arm pain going on for a long time but got worse lately. Associate with chest pain Abnormal EKG Initial troponin 73 and repeat is 707 We will follow serial cardiac enzymes and echo Ordered aspirin and IV heparin N.p.o. Telemetry Coronary consulted and notified Close monitor Pneumonia Cough Leukocytosis. 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 History of Present Illness Chief Complaint: Bilateral arm pain and cough Primary Care Provider: Hermann Berger DO 70-year-old male Japanese-speaking with past med history significant for hypercholesterolemia, hypertension, mild mitral regurgitation, cerebral cavernoma, history of CVA, cognitive deficit status poststroke, complex partial seizures, learning disorder, GERD, degenerative disc disease, migraine, was brought in by because of bilateral arm pain and cough. refused translation services. can speak [place]ralt[place] and she helped with H&P. As per patient having bilateral arm pain for a long time and he also followed with neurology and workup was unrevealing. Last 3 to 4 weeks bilateral arm pain got worse. Saw PCP recently and had neck x-ray done on 02/28/2025 which showed multilevel degenerative changes of spine and mild disc space narrowing with endplate degenerative changes. No acute fractures or subluxation noted. Also having cough for last 2 weeks. Mostly dry cough. PCP prescribed tapering prednisone which he is on currently for last 6 to 7 days. But last few days right arm pain became worse. Even lifting a towel he was complaining of severe pain in both arms. Because of ongoing bilateral arm pain brought him to the hospital today. When he is having severe pain he is also complaining of having pain all over the chest. Denies any shortness of breath. No fevers. In the ER he was hypoxic saturating 88% on room air requiring oxygen. Denies any headache. No neck pain. Has back pain. Vision is okay. No runny nose or sore throat. No difficulty swallowing. No nausea. No abdominal pain. Normal bowel and bladder movements.. Currently resting comfortably and hemodynamically stable. Past medical history. As mentioned above. Past surgical history. Colonoscopy. Appendectomy. TURP. Social history. . No smoking. No alcohol use. No drug use. Family history. Daughter has asthma. Mother had asthma. Sister had heart disorder. Allergies Allergy/AdvReac Type Severity Reaction Status Date / Time No Known Drug Allergies Allergy Mild . Verified 12/26/21 16:09 orange Allergy Mild ORANGE Verified 12/26/21 16:09 JUICE orange juice Allergy Intermediate "allergic" Uncoded 12/26/21 16:09 per Home Medications Medication Instructions Recorded Confirmed Type alendronate 70 mg tablet 70 mg PO WK 03/06/25 03/06/25 History aspirin 81 mg tablet,delayed 81 mg PO DAILY 03/06/25 03/06/25 History release atenolol 50 mg tablet 50 mg PO DAILY 03/06/25 03/06/25 History lamotrigine 100 mg tablet 200 mg PO UD 03/06/25 03/06/25 History naproxen 500 mg tablet 500 mg PO BID 03/06/25 03/06/25 History omeprazole 40 mg capsule,delayed 40 mg PO DAILY 03/06/25 03/06/25 History release prednisone 10 mg tablet 10 mg PO UD 03/06/25 03/06/25 History rosuvastatin 10 mg tablet 10 mg PO DAILY 03/06/25 03/06/25 History Past Med/Surg History Problem List (Updated 03/06/25 @ 08:25 by Zurdo Larson MD) NSTEMI (non-ST elevated myocardial infarction) Benign prostatic hyperplasia with urinary obstruction Heart disease History of urinary retention Seizure disorder Moderate mitral regurgitation (Acute) Hypertension (Chronic) Seizures (Chronic) Abdominal pain (Acute) Enlarged prostate (Acute) Hematuria Hyponatremia Nausea and vomiting (Acute) Orthostasis (Acute) Syncope (Acute) Urinary retention (Acute) Medical History Benign prostatic hyperplasia with urinary obstruction Heart disease History of urinary retention Seizure disorder Family History (Updated 01/29/19 @ 10:20 by Saw Rebolledo) Mother Cardiac disorder Father Cardiac disorder Sister Breast cancer Brother Leukemia Social History Smoking Status: Never smoker Preferred Language: Gib[place]tarian Feels Safe at Home: Yes Review of Systems Review of Systems: All systems reviewed & are unremarkable except as noted in HPI & below Physical Exam Physical Exam: General- Not in distress Head- atraumatic Eyes- PERRL. ENT- oropharynx clear Neck- supple, no JVD. Lungs- clear to auscultation no wheezing or crackles Heart- regular rate and rhythm; no murmur, no gallop. Abdomen- normal bowel sounds, soft, nontender, no distension Extremities- no pretibial edema, no erythema seen Neuro- alert, oriented; PERRL, no facial palsy; no dysarthria; moves extremities Results & Data Results & Data Vital Signs (Past 12 Hours) Vital Signs Temp Pulse Pulse Resp BP BP Pulse Ox 03/06/25 07:11 84 20 160/89 H 99 03/06/25 05:54 99 03/06/25 04:30 88 L 03/06/25 04:17 91 H 03/06/25 04:07 88 L 03/06/25 04:01 89 18 134/84 93 03/06/25 03:55 36.5 C 79 22 138/77 96 O2 Del Method O2 Flow Rate 03/06/25 07:11 Room Air 03/06/25 05:54 Nasal Cannula 2 03/06/25 04:30 Room Air 03/06/25 04:17 03/06/25 04:07 Room Air 03/06/25 04:01 Room Air 03/06/25 03:55 Room Air Diagnostic Findings Laboratory Results WBC 22.82 K/ul (4.8-10.8) H 03/06/25 04:28 RBC 4.05 M/uL (4.70-6.10) L 03/06/25 04:28 Hgb 12.1 g/dl (14.0-18.0) L 03/06/25 04:28 Hct 36.8 % (42.0-52.0) L 03/06/25 04:28 MCV 90.9 fL (80.0-100.0) 03/06/25 04:28 MCH 29.9 pg (25.0-34.0) 03/06/25 04:28 MCHC 32.9 g/dL (32.0-36.0) 03/06/25 04:28 RDW Std Deviation 45.4 fL (36.4-46.3) 03/06/25 04:28 RDW Coeff of Madalyn 13.6 % (11.5-14.5) 03/06/25 04:28 Plt Count 355 K/uL (130-400) 03/06/25 04:28 MPV 9.6 fL (9.4-12.4) 03/06/25 04:28 Immature Gran % (Auto) 0.7 % 03/06/25 04:28 Neut % (Auto) 77.4 % 03/06/25 04: Lymph % (Auto) 17.0 % 03/06/25 04:28 Allen % (Auto) 4.4 % 03/06/25 04:28 Eos % (Auto) 0.3 % 03/06/25 04:28 Baso % (Auto) 0.2 % 03/06/25 04:28 Neut # (Auto) 17.67 K/uL (1.40-6.50) H 03/06/25 04:28 Lymph # (Auto) 3.88 K/uL (1.20-3.40) H 03/06/25 04:28 [place] # (Auto) 1.00 K/uL (0.11-0.59) H 03/06/25 04:28 Eos # (Auto) 0.07 K/uL (0.00-0.50) 03/06/25 04:28 Baso # (Auto) 0.05 K/uL (0.00-0.20) 03/06/25 04:28 Immature Gran # (Auto) 0.15 K/uL (0.01-0.20) 03/06/25 04:28 PT 10.4 Seconds (9.0-12.0) 03/06/25 04: INR 1.0 (0.9-1.1) 03/06/25 04:28 Sodium 137 mmol/L (136-145) 03/06/25 04:28 Potassium 3.2 mmol/L (3.5-5.1) L 03/06/25 04:28 Chloride 103 mmol/L (98-107) 03/06/25 04:28 Carbon Dioxide 23 mmol/L (21-32) 03/06/25 04:28 Anion Gap 11 (3-11) 03/06/25 04:28 BUN 14 mg/dl (6-23) 03/06/25 04:28 Creatinine 0.83 mg/dl (0.6-1.4) 03/06/25 04:28 Est Cr Clr Drug Dosing 68.4 ml/min 03/06/25 04:28 eGFR 93.57 03/06/25 04:28 BUN/Creatinine Ratio 16.9 (10-20) 03/06/25 04:28 Glucose 128 mg/dl (70-99(Fasting)) H 03/06/25 04:28 Calcium 9.0 mg/dl (8.6-10.3) 03/06/25 04:28 Total Bilirubin 0.5 mg/dl (0.2-1.0) 03/06/25 04:28 AST 15 U/L (13-39) 03/06/25 04:28 ALT 23 U/L (7-52) 03/06/25 04:28 Alkaline Phosphatase 46 U/L (34-104) 03/06/25 04:28 Troponin I High Sens 707.3 pg/ml (0-20) H* D 03/06/25 06:20 Total Protein 7.2 gm/dl (6.0-8.3) 03/06/25 04:28 Albumin 3.9 gm/dl (3.4-5.0) 03/06/25 04:28 Globulin 3.3 gm/dl (2.5-4.0) 03/06/25 04:28 Albumin/Globulin Ratio 1.2 (0.9-2) 03/06/25 04:28 Lipase 23 U/L (11-82) 03/06/25 04:28 Impressions Chest X-Ray 03/06/25 04:33 EXAM: XR chest 1V portable CLINICAL HISTORY: hypoxic, cough, PNA. TECHNIQUE: An X-ray image of the chest is obtained in AP projection. COMPARISON: Compared to the prior study dated 12/26/2021 FINDINGS: Lung [place]: Pulmonary hilar and basal opacities are seen, likely pneumonic versus pulmonary edema. No focal consolidation or cavitation is identified. Pleura: The left costophrenic angle is obliterated, suggesting a small pleural effusion. The right costophrenic angle is sharp. Cardiac Silhouette: Cardiomegaly is noted. Mediastinum and Trachea: Trachea is midline. Mediastinal contours are within normal limits for AP projection. Bones and Soft Tissues: Visualized bony structures are unremarkable. No rib fractures or lytic lesions. IMPRESSION: 1. Compared to the prior study dated 12/26/2021. 2. Pulmonary hilar and basal opacities are seen, likely pneumonic versus pulmonary edema. (newly present). 3. Left costophrenic angle blunting, suggestive of a pleural effusion. (more demonstrated). 4. Cardiomegaly. 5. Follow-up X-ray/ CT is recommended. Electronically signed by Marquis Maria 03-06-2025 05:37 AM Chest CTA 03/06/25 06:59 CT angio chest PE protocol CT DOSE: 755.33 mGy.cm HISTORY: PE. TECHNIQUE: Multiple CTA images of the chest were obtained after the intravenous administration of 120 ml Optiray. Coronal and sagittal MIPS were obtained from the axial data set and were submitted for review. All measurements were obtained according to NASCET criteria. A dose lowering technique was utilized adhering to the principles of ALARA. COMPARISON STUDY: 12/26/2021 FINDINGS: There is motion artifact due to difficulty breath holding. There is moderate cardiomegaly with pulmonary vascular congestion. There are small bilateral pleural effusions which layer dependently. There is diffuse septal thickening and mild scattered pulmonary groundglass opacity consistent with mild pulmonary edema. There is no pneumothorax. No enlarged adenopathy. No pericardial effusion. There are coronary artery calcifications. Ascending thoracic aorta measures 4 cm diameter, stable. No pulmonary embolism seen. No acute osseous findings. IMPRESSION: 1. No pulmonary embolism seen. 2. CHF with small bilateral pleural effusions and mild pulmonary edema. ACT 112: Negative or not required by law. The above report was generated using voice recognition software. It may contain grammatical, syntax or spelling errors. Electronically signed by: Randolph Boyer M.D. 03/06/2025 8:10 AM ECG Additional Comments: ECG. Normal sinus rhythm rate of 87. Left ventricular hypertrophy. ST depression in lateral leads. T wave inversions in inferior leads. T wave inversion seen in anterolateral leads. QTc 476 Code Status & VTE Plan VTE Prophylaxis Plan VTE Prophylaxis will be ordered: Yes
--- NOTE | 2025-03-06 08:25 | Cardiology Consultation ---
Date of Consultation March 06, 2025 Assessment & Plan (1) NSTEMI (non-ST elevated myocardial infarction): * New lateral ST segment changes compared to baseline EKG, initial high since a troponin was 73 and has trended up to 707 PG per mL as of 620 this morning. * Chest x-ray, physical exam, CT results suggest superimposed congestive heart failure with small bilateral pleural effusions * Continue aspirin, heparin, beta-orion (patient receives atenolol 50 mg daily as an outpatient), rosuvastatin. * Procedure 20 mg IV furosemide and stop further IV antibiotics * Transthoracic echocardiogram is being performed and will be reviewed as soon as results are available * Plan for invasive coronary Angiography today. Patient and spouse agreeable. (2) Hypokalemia: * Potassium level 3.2 mmol/L this morning. He has received 40 mill equivalents of potassium chloride this morning just after 8 AM, will proceed with a second dose of 40 mill equivalents (3) Moderate mitral regurgitation: * Although there is a chart history of moderate manage regurgitation. Most recent echocardiogram report dating back to January, describes mild mitral regurgitation. This be reassessed at time of echocardiogram. I spent a total of 60 minutes on the date of service in preparation, delivery, and documentation of the care provided to this patient, excluding any time spent in the performance of separately billed services. Aristeo Nye DO History of Present Illness History of Present Illness Conrad Chapman is a 70 year old male seen in cardiology consultation per the request of Dr Larson for the evaluation of chest pain. Patient speaks Maltese. With the patient's consent, interview was conducted with the assistance of the language line interpretation service. Patient has had recent complaint of bilateral arm pain for the last 3 to 4 weeks. He had been seen by primary care on 02/28/2025 and an x-ray revealed multilevel degenerative changes of the spine. The patient was treated with a course of prednisone but symptoms have not improved and have recently started to radiate to the chest. Most recent episode of chest discomfort was last evening. Currently patient is asymptomatic and is receiving IV heparin. Past Medical History: 1. CVA 2. Right paracentral lobule cavernoma 3. HTN 4. History of seizure disorder 5. Paroxysmal atrial tachycardia 6. 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 Dyslipdidimia Allergies Allergy/AdvReac Type Severity Reaction Status Date / Time No Known Drug Allergies Allergy Mild . Verified 12/26/21 16:09 orange Allergy Mild ORANGE Verified 12/26/21 16:09 JUICE orange juice Allergy Intermediate "allergic" Uncoded 12/26/21 16:09 per Home Medications Medication Instructions Recorded Confirmed Type alendronate 70 mg tablet 70 mg PO WK 03/06/25 03/06/25 History aspirin 81 mg tablet,delayed 81 mg PO DAILY 03/06/25 03/06/25 History release atenolol 50 mg tablet 50 mg PO DAILY 03/06/25 03/06/25 History lamotrigine 100 mg tablet 200 mg PO UD 03/06/25 03/06/25 History naproxen 500 mg tablet 500 mg PO BID 03/06/25 03/06/25 History omeprazole 40 mg capsule,delayed 40 mg PO DAILY 03/06/25 03/06/25 History release prednisone 10 mg tablet 10 mg PO UD 03/06/25 03/06/25 History rosuvastatin 10 mg tablet 10 mg PO DAILY 03/06/25 03/06/25 History Patient History Family History Mother Cardiac disorder Father Cardiac disorder Sister Breast cancer Brother Leukemia Social History Smoking Status: Never smoker Preferred Language: Moroccan Feels Safe at Home: Yes Review of Systems Review of Systems: All systems reviewed & are unremarkable except as noted in HPI & below Respiratory: + cough Physical Exam Physical Exam: Temp Pulse Resp BP Pulse Ox O2 Del Method O2 Flow Rate 36.5 C 94 H 18 138/92 100 Nasal Cannula 2 03/06/25 03:55 03/06/25 08:03 03/06/25 08:03 03/06/25 08:03 03/06/25 08:03 03/06/25 08:03 03/06/25 08:03 General: no acute distress and stated age Eyes: conjunctiva are pink and non-injected, sclera clear Neck: normal jugular venous pulse, no hepatojugular reflux Chest: normal shape and normal respiratory effort Lungs: clear to auscultation and percussion Cardiac Exam: - regular heart sounds, no murmurs, rubs, or gallops, no jugular venous distention Abdomen: abdomen soft, non-tender, no abnormal masses and no hepatosplenomegaly Musculoskeletal: no gait disturbance, no weakness Extremities: no edema and no cyanosis Neuro:awake, conversant, follows commands, no focal motor deficits Psych: appropriate affect and insight. Results & Data Vital Signs (Past 12 Hours) Vital Signs Temp Pulse Pulse Resp BP BP Pulse Ox 03/06/25 07:11 84 20 160/89 H 99 03/06/25 05:54 99 03/06/25 04:30 88 L 03/06/25 04:17 91 H 03/06/25 04:07 88 L 03/06/25 04:01 89 18 134/84 93 03/06/25 03:55 36.5 C 79 22 138/77 96 O2 Del Method O2 Flow Rate 03/06/25 07:11 Room Air 03/06/25 05:54 Nasal Cannula 2 03/06/25 04:30 Room Air 03/06/25 04:17 03/06/25 04:07 Room Air 03/06/25 04:01 Room Air 03/06/25 03:55 Room Air Laboratory Results Cardiac Enzymes 03/06/25 03/06/25 Range/Units 04:28 06:20 AST 15 (13-39) U/L Troponin I High Sens 73.7 H* 707.3 H* D (0-20) pg/ml Coagulation 03/06/25 Range/Units 04:28 PT 10.4 (9.0-12.0) Seconds CBC 03/06/25 Range/Units 04:28 WBC 22.82 H (4.8-10.8) K/ul RBC 4.05 L (4.70-6.10) M/uL Hgb 12.1 L (14.0-18.0) g/dl Hct 36.8 L (42.0-52.0) % Plt Count 355 (130-400) K/uL Neut # (Auto) 17.67 H (1.40-6.50) K/uL Lymph # (Auto) 3.88 H (1.20-3.40) K/uL [place] # (Auto) 1.00 H (0.11-0.59) K/uL Eos # (Auto) 0.07 (0.00-0.50) K/uL Baso # (Auto) 0.05 (0.00-0.20) K/uL Comprehensive Metabolic Panel 03/06/25 Range/Units 04:28 Sodium 137 (136-145) mmol/L Potassium 3.2 L (3.5-5.1) mmol/L Chloride 103 (98-107) mmol/L Carbon Dioxide 23 (21-32) mmol/L BUN 14 (6-23) mg/dl Creatinine 0.83 (0.6-1.4) mg/dl Glucose 128 H (70-99(Fasting)) mg/dl Calcium 9.0 (8.6-10.3) mg/dl AST 15 (13-39) U/L ALT 23 (7-52) U/L Alkaline Phosphatase 46 (34-104) U/L Total Protein 7.2 (6.0-8.3) gm/dl Albumin 3.9 (3.4-5.0) gm/dl Diagnostic Findings EKG performed 03/06/2025 at 4:12 AM and interpreted independently: Normal sinus rhythm 87 bpm, left ventricular hypertrophy, ST segment depression noted in the lateral leads which is new compared to a previous tracing performed as an outpatient on 03/02/2024 Repeat EKG performed 03/06/2025 at 8:10 AM, lateral ST segment depressions less prominent but still not back to baseline. Summary of ttecho performed 02/07/24: The LV wall thickness is normal. Mild mitral regurgitation is present The left ventricular wall motion is normal. The qualitative LV ejection fraction is 55-59% (normal). Trace aortic regurgitation is present. There is no atrial septal defect, PFO, or interatrial shunt observed with the administration of agitated saline contrast (high-quality bubble study performed at rest and with Valsalva maneuver). CTA chest performed 03/06/2025, summary of radiology report IMPRESSION: 1. No pulmonary embolism seen. 2. CHF with small bilateral pleural effusions and mild pulmonary edema. PG Care Time/CCT Total # of Minutes Spent Total Time Spent with Patient: Total time spent is greater than 50% in coordination of care (as documented) at patient's floor/unit and/or counseling patient: [place] [address] IN/OBS CONSULT LVL 4,60M Patient Type Established History Comprehensive Exam Comprehensive Diagnoses NSTEMI (non-ST elevated myocardial infarction) I21.4 Hypokalemia E87.6 Moderate mitral regurgitation I34.0
[2025-03-06] MEDS: FUROSEMIDE INJ 20 MG/2 ML VIAL IV ONE (08:56)
[2025-03-06] MEDS ORDERED: NITROGLYCERIN SL 0.4 MG/TAB TAB SL PRN (10:05)
[2025-03-06] MEDS ORDERED: POLYETHYLENE (MIRALAX) 17 GM PACK PO PRN (10:05)
[2025-03-06] MEDS: ROSUVASTATIN CALCIUM 10 MG TAB PO SCH (10:39)
[2025-03-06] MEDS: lamoTRIgine 100 MG TAB PO SCH (10:39)
[2025-03-06] MEDS: SODIUM CHLORIDE 0.9% 1,000 ML IV SCH (10:40)
[2025-03-06] MEDS: ALENDRONATE SODIUM 70 MG TAB PO SCH (10:41)
[2025-03-06] MEDS: ASPIRIN 81 MG ECTAB PO SCH (10:44)
[2025-03-06] MEDS: ATENOLOL 50 MG TABLET PO SCH (10:53)
[2025-03-06 11:24] LABS: Creatine Kinase 321.0 U/L (30-223)
--- NOTE | 2025-03-06 11:47 | Pre Anesthesia Assessment ---
Date of Service March 06, 2025 Pre Sedation Assessment Vital Signs Temp Pulse Pulse Resp BP BP Pulse Ox 03/06/25 11:25 105 H 18 149/90 H 100 03/06/25 10:00 36.5 C 103 H 20 136/87 94 03/06/25 09:36 106 H 20 138/91 98 03/06/25 08:03 94 H 18 138/92 100 03/06/25 07:54 133/83 03/06/25 07:54 133/83 03/06/25 07:11 84 20 160/89 H 99 03/06/25 07:09 84 22 160/89 H 99 03/06/25 05:54 99 03/06/25 04:30 88 L 03/06/25 04:17 91 H 03/06/25 04:07 88 L 03/06/25 04:01 89 18 134/84 93 03/06/25 03:55 36.5 C 79 22 138/77 96 O2 Del Method O2 Flow Rate 03/06/25 11:25 Room Air 03/06/25 10:00 Nasal Cannula 2 03/06/25 09:36 03/06/25 08:03 Nasal Cannula 2 03/06/25 07:54 03/06/25 07:54 03/06/25 07:11 Room Air 03/06/25 07:09 Nasal Cannula 2 03/06/25 05:54 Nasal Cannula 2 03/06/25 04:30 Room Air 03/06/25 04:17 03/06/25 04:07 Room Air 03/06/25 04:01 Room Air 03/06/25 03:55 Room Air Cardiovascular RRR, no murmur, no edema Respiratory normal respiratory effort, lungs clear to auscultation Pre-Sedation Airway Assessment Smoking Status: Never smoker Short, Thick Neck: No Thyromental Distance: < 3.5 Finger Breadths Oral Cavity: + WNL Mallampati Class: II ASA: ASA3 NPO Status Date of Last Intake of Fluids: 03/05/25 Time of Last Intake of Fluids: 22:00 Date of Last Intake of Solid Food: 03/05/25 Time of Last Intake of Solid Foods: 22:00 Notes The planned sedation has been discussed with the patient. Informed Consent was obtained. I have identified the patient, determined the appropriateness of sedation and have assessed the patient immediately prior to the procedure. All medicine(s) and interventions are by my order.
[2025-03-06] MEDS: NITROGLYCERIN/D5W 100MCG/ML 20ML SYR ONE (12:04)
[2025-03-06] MEDS: niCARdipine 2,000 MCG/20 ML SYR ONE (12:05)
[2025-03-06] MEDS: OPTIRAY 350 ONE (12:29)
[2025-03-06] MEDS: MIDAZOLAM HCL 1 MG/ML 2ML VIAL ONE (12:29)
[2025-03-06] MEDS: HEPARIN (PORCINE) 1000 UNIT/ML 10 ML (CATH LAB USE ONLY) ONE (12:30)
--- NOTE | 2025-03-06 12:43 | Post Anesthesia Assessment ---
Date of Service March 06, 2025 Post Sedation Assessment Vital Signs Temp Pulse Pulse Resp BP BP Pulse Ox 03/06/25 11:25 105 H 18 149/90 H 100 03/06/25 10:02 101 H 03/06/25 10:00 36.5 C 103 H 20 136/87 94 03/06/25 09:36 106 H 20 138/91 98 03/06/25 08:03 94 H 18 138/92 100 03/06/25 07:54 133/83 03/06/25 07:54 133/83 03/06/25 07:11 84 20 160/89 H 99 03/06/25 07:09 84 22 160/89 H 99 03/06/25 05:54 99 03/06/25 04:30 88 L 03/06/25 04:17 91 H 03/06/25 04:07 88 L 03/06/25 04:01 89 18 134/84 93 03/06/25 03:55 36.5 C 79 22 138/77 96 O2 Del Method O2 Flow Rate 03/06/25 11:25 Room Air 03/06/25 10:02 03/06/25 10:00 Nasal Cannula 2 03/06/25 09:36 03/06/25 08:03 Nasal Cannula 2 03/06/25 07:54 03/06/25 07:54 03/06/25 07:11 Room Air 03/06/25 07:09 Nasal Cannula 2 03/06/25 05:54 Nasal Cannula 2 03/06/25 04:30 Room Air 03/06/25 04:17 03/06/25 04:07 Room Air 03/06/25 04:01 Room Air 03/06/25 03:55 Room Air Recovery Score Activity: Moves 4 extremities Respiration: Deep Breath/Cough Circulation: +/-20% PreAnes Value Consciousness: Fully Awake Oxygen Saturation: > 92% On Room Air Discharge Sedation Level of Care: Fast Track Phase II Post Sedation Plan On clinical assessment, the patient appears to have tolerated the sedation without complications. Patient is recovering as anticipated. Patient will continue to be monitored by nursing and may be discharged when sedation discharge criteria are met per below protocol. Upon Completions of procedure up to 15 minutes continue every 5 minute vital signs and the P.A.R. score; then discharge to a Phase I or Fast Track to Phase II per the following guidelines: * Discharge Patient to appropriate Phase II area if PAR is 8 or greater or return to pre- procedure baseline. The post - procedure orders will be as directed. * If PAR score is less than 8 or not return to pre-procedure baseline then patient will follow Phase I monitoring till PAR is reached for Phase II. The Phase I may be done in procedure room or may call to secure a Phase I area. * If naloxone or flumazenil are used for reversal, hold in Phase I for continued monitoring from when last reversal dose was given for a minimum of 60 minutes or longer pending the nurse and/or physician discretion of patient condition before discharge to Phase II. Please call the Sedation Physician to re-evaluate and complete post-note for discharge to Phase II area. Do NOT discharge from procedure sedation or Phase 1 until post- sedation evaluation note is complete by procedure /sedation MD Sedation Discharge Instructions to be given to the patient at discharge to home. [facility] Procedure Codes (Charges) Indication for Procedure Indication for procedure: Non-ST elevation DE
--- NOTE | 2025-03-06 13:37 | Communication Note ---
Date of Service: March 06, 2025 Cardiac catheterization films reviewed and interpreted independently and reviewed with Dr Enciso of interventional cardiology. Patient found to have 80-90% distal left main stenosis, with diffuse disease throughout the LAD. There is a subtotal occlusion of the right coronary artery. Echocardiogram notable for a large inferolateral wall motion abnormality (right coronary territory) with severe hypokinesis of the segments, LVEF 30-35%. At least moderate mitral regurgitation observed. Patient hemodynamically stable postcardiac catheterization most recent blood pressure 124/78. No symptoms suggestive angina at present procedure performed via right radial artery access. Findings discussed with the patient's spouse, patient, and his son Richard by phone.Patient agreeable to transfer to tertiary care center for CT surgery evaluation. Case discussed with Dr Rashawn Sheehan of cardiology at [facility] who accepts the patient in transfer. Plan to transfer by helicopter. TTE and cath films transferred to [facility] electronically. Aristeo Nye DO
[2025-03-06] MEDS: BENZONATATE 100 MG CAPSULE PO ONE (14:23)
[2025-03-06] MEDS: ACETAMINOPHEN 325 MG TAB PO PRN (14:23)
--- NOTE | 2025-03-06 14:49 | Discharge Summary ---
Date of Service March 06, 2025 Admission HPI Per Admitting Provider 70-year-old male Faroese-speaking with past med history significant for hypercholesterolemia, hypertension, mild mitral regurgitation, cerebral cavernoma, history of CVA, cognitive deficit status poststroke, complex partial seizures, learning disorder, GERD, degenerative disc disease, migraine, was brought in by because of bilateral arm pain and cough. refused translation services. can speak Andorran and she helped with H&P. As per patient having bilateral arm pain for a long time and he also followed with neurology and workup was unrevealing. Last 3 to 4 weeks bilateral arm pain got worse. Saw PCP recently and had neck x-ray done on 02/28/2025 which showed multilevel degenerative changes of spine and mild disc space narrowing with endplate degenerative changes. No acute fractures or subluxation noted. Also having cough for last 2 weeks. Mostly dry cough. PCP prescribed tapering prednisone which he is on currently for last 6 to 7 days. But last few days right arm pain became worse. Even lifting a towel he was complaining of severe pain in both arms. Because of ongoing bilateral arm pain brought him to the hospital today. When he is having severe pain he is also complaining of having pain all over the chest. Denies any shortness of breath. No fevers. In the ER he was hypoxic saturating 88% on room air requiring oxygen. Denies any headache. No neck pain. Has back pain. Vision is okay. No runny nose or sore throat. No difficulty swallowing. No nausea. No abdominal pain. Normal bowel and bladder movements.. Currently resting comfortably and hemodynamically stable. Past medical history. As mentioned above. Past surgical history. Colonoscopy. Appendectomy. TURP. Social history. . No smoking. No alcohol use. No drug use. Family history. Daughter has asthma. Mother had asthma. Sister had heart disorder. Admission Exam Per Admitting Provider General- Not in distress Head- atraumatic Eyes- PERRL. ENT- oropharynx clear Neck- supple, no JVD. Lungs- clear to auscultation no wheezing or crackles Heart- regular rate and rhythm; no murmur, no gallop. Abdomen- normal bowel sounds, soft, nontender, no distension Extremities- no pretibial edema, no erythema seen Neuro- alert, oriented; PERRL, no facial palsy; no dysarthria; moves extremiti es Principal Diagnosis NSTEMI Multivessel CAD Discharge Exam General- Not in distress Head- atraumatic Eyes- PERRL. ENT- oropharynx clear Neck- supple, no JVD. Lungs- clear to auscultation no wheezing, + bb crackles Heart- regular rate and rhythm; no murmur, no gallop. Abdomen- normal bowel sounds, soft, nontender, no distension Extremities- no pretibial edema, no erythema seen Neuro- alert, oriented; PERRL, no facial palsy; no dysarthria; moves extremities Discharge Data Allergies Allergy/AdvReac Type Severity Reaction Status Date / Time No Known Drug Allergies Allergy Mild . Verified 12/26/21 16:09 orange Allergy Mild ORANGE Verified 12/26/21 16:09 JUICE orange juice Allergy Intermediate "allergic" Uncoded 12/26/21 16:09 per Consultations 03/06/25 05:47 ED Decision to Admit Stat 03/06/25 10:05 Consult Cardiology Routine Procedures Performed Operation Date: 03/06/25 10:00 Actual Procedures p Cineradiography w/Routine Exam - Anders Enciso MD, PhD p Cath, Coronaries ONLY (no LV) - Anders Enciso MD, PhD Ordered Studies 03/06/25 06:59 CT angio chest PE protocol Urgent 03/06/25 09:33 CL Cath Imgs for PACS use only Stat Hospital Course (1) NSTEMI (non-ST elevated myocardial infarction): 70-year-old male Faroese-speaking with past med history significant for hypercholesterolemia, hypertension, mild mitral regurgitation, cerebral cavernoma, history of CVA, cognitive deficit status poststroke, complex partial seizures, learning disorder, GERD, degenerative disc disease, migraine, was brought in by because of bilateral arm pain and cough. refused translation services. can speak Andorran and she helped with H&P. As per patient having bilateral arm pain for a long time and he also followed with neurology and workup was unrevealing. Last 3 to 4 weeks bilateral arm pain got worse. Saw PCP recently and had neck x-ray done on 02/28/2025 which showed mu ltilevel degenerative changes of spine and mild disc space narrowing with endplate degenerative changes. No acute fractures or subluxation noted. Also having cough for last 2 weeks. Mostly dry cough. PCP prescribed tapering prednisone which he is on currently for last 6 to 7 days. But last few days right arm pain became worse. Even lifting a towel he was complaining of severe pain in both arms. Because of ongoing bilateral arm pain brought him to the hospital today. When he is having severe pain he is also complaining of having pain all over the chest. Denies any shortness of breath. No fevers. In the ER he was hypoxic saturating 88% on room air requiring oxygen. Denies any headache. No neck pain. Has back pain. Vision is okay. No runny nose or sore throat. No difficulty swallowing. No nausea. No abdominal pain. Normal bowel and bladder movements.. Currently resting comfortably and hemodynamically stable. Non-ST elevated MO Multivessel CAD Came with bilateral arm pain going on for a long time but got worse lately. Associated with chest pain and sob. Abnormal EKG at presentation. Initial troponin 73 and repeat is 707 --> 3623 Echo with EF of 30 to 35%. Wall motion abnormalities seen.PASP elevated. Status post cardiac cath, multivessel CAD noted. Discussed with cardiology, recommends tertiary care transfer for cardiothoracic evaluation. Patient and patient's are aware of the need for transfer and are agreeable. Paperwork done. Pneumonia Cough Leukocytosis. 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 Home Health Attestation I certify that this patient is under my care and that I, or a physicians assistant hairstylist working with me, had a face to-face encounter that meets the [facility] [id number] encounter requirements with this patient. The encounter with the patient was in whole, or in part, for the following medical condition, which is the primary reason for home health care (list medical condition): I certify that, based on my findings, the following services are medically necessary home health services: My clinical findings support the need for the above services because: Further, I certify that my clinical findings support that this patient is homebound (i.e. absences from home require considerable and taxing effort and are for medical reasons or taoism services or infrequently or of short duration when for other reasons) because: Certification for Home Health Services: Based on the above findings, I certify that this patient is confined to the home and needs intermittent alf care, physical therapy and/or speech therapy or continues to need occupational therapy. The patient is under my care, and I have initiated the establishment of the plan of care. This patient will be followed by a physician who will periodically review the plan of care. Total Time Total Time Spent Total Time Spent (In Minutes): 45 Discharge Plan Discharge Items Patient Disposition: Transfer Acute Care Hospital Reason For Visit: ARM PAIN, ELEVATED TROP, PNEUMONIA Discharge Diagnosis: Multivessel CAD Activity: As commented below Activity Comment: as per tertiary care recommendation Non-emergency contact: Primary Care Provider Call non-emergency contact if: you have any medication questions and your symptoms worsen Follow-up/Referrals: Hermann Berger, [Primary Care Provider] - Diet: Heart Healthy Addtl Attending Provider Instructions: Your prior to arrival home medications are reconciled as it was in the discharge med rec. Your current inpatient medications are copied and pasted below for the sake of comparison at [facility]. Current Inpatient Medications Acetaminophen (Acetaminophen 325 Mg Tab) 650 mg PO Q4H PRN PRN Reason: Pain or Fever Stop: 04/05/25 10:04 Last Admin: 03/06/25 14:23 Dose: 650 mg Alendronate Sodium (Alendronate Sodium 70 Mg Tab) 70 mg PO We@0700 [facility] Stop: 04/05/25 10:59 Last Admin: 03/06/25 10:41 Dose: 70 mg Aspirin (Aspirin 81 Mg Ectab) 81 mg PO DAILY [facility] Stop: 04/05/25 10:14 Last Admin: 03/06/25 10:44 Dose: 81 mg Atenolol (Atenolol 50 Mg Tablet) 50 mg PO DAILY [facility] Stop: 04/05/25 10:44 Last Admin: 03/06/25 10:53 Dose: 50 mg Azithromycin (Azithromycin 250 Mg Tab) 500 mg PO QAM [facility] Stop: 03/12/25 08:59 Guaifenesin/Dextromethorphan (Guaifenesin/Dextrom Syrup 100mg/10mg 5ml Udc) 5 ml PO Q6H PRN PRN Reason: Cough Stop: 04/05/25 10:04 Last Admin: 03/06/25 10:27 Dose: 5 ml Heparin Sodium/Dextrose (Heparin 20796 Unit/500 Ml D5w) 25,000 units in 500 mls @ 22 mls/hr IV .[id number] [facility]; Protocol Stop: 04/05/25 07:44 Last Admin: 03/06/25 08:03 Dose: 1,100 units/hr, 22 mls/hr Sodium Chloride (Nss) 1,000 mls @ 80 mls/hr IV .[id number] [facility] Stop: 03/09/25 10:29 Last Admin: 03/06/25 10:40 Dose: 80 mls/hr Ceftriaxone Sodium (Rocephin) 2,000 mg in 50 mls @ 100 mls/hr IV Q24H [facility] Stop: 03/12/25 05:29 Lamotrigine (Lamotrigine 100 Mg Tab) 200 mg PO QAM [facility]; Protocol Stop: 04/05/25 10:29 Last Admin: 03/06/25 10:39 Dose: 200 mg Nitroglycerin (Nitroglycerin Sl 0.4 Mg/Tab Tab) 0.4 mg SL Q5M PRN PRN Reason: Chest Pain Stop: 04/05/25 10:04 Pantoprazole Sodium (Pantoprazole 40 Mg Tab) 40 mg PO DAILY [facility] Stop: 04/05/25 10:29 Last Admin: 03/06/25 10:39 Dose: 40 mg Polyethylene Glycol (Polyethylene (Miralax) 17 Gm Pack) 17 gm PO DAILY PRN PRN Reason: Constipation Stop: 04/05/25 10:04 Rosuvastatin Calcium (Rosuvastatin Calcium 10 Mg Tab) 10 mg PO DAILY [facility] Stop: 04/05/25 10:29 Last Admin: 03/06/25 10:39 Dose: 10 mg Pending Studies at Discharge: No Stand-Alone Forms: [facility] Skilled Items Patient informed of condition?: Yes DNR: No Discharge Level of Care: Other Communicable Disease: No Discharge Prognosis: Other Lines: Peripheral IV Urinary Catheter: No Medications and DC Order Prescriptions: Continued prednisone 10 mg tablet 10 mg PO UD Rx Instructions: tapering dose alendronate 70 mg tablet 70 mg PO WK Rx Instructions: takes on omeprazole 40 mg capsule,delayed release(DR/EC) 40 mg PO DAILY aspirin [Aspir-81] 81 mg Tablet,Delayed Release (Dr/Ec) 81 mg PO DAILY atenolol 50 mg tablet 50 mg PO DAILY lamotrigine 100 mg tablet 200 mg PO UD Rx Instructions: 200mg in am and 150mg po in pm naproxen 500 mg tablet 500 mg PO BID rosuvastatin 10 mg tablet 10 mg PO DAILY Discharge Orders: Discharge Order (Routine); Ordered 03/06/25 Ordered By: Erik Meek Admission Data Admit Date/Time: 03/06/25 07:04 Attending Provider: Erik Meek Admit Provider: Zurdo Larson Primary Care Provider: Hermann Berger Other Providers: Zurdo Larson; Anders Nye
[2025-03-06 15:46] LABS: ANTI-Xa, UFH(UnfractionatedHep 0.87 IU/ml (0.3-0.7)
[2025-03-06] MEDS ORDERED: METOPROLOL TARTRATE 25 MG TAB PO SCH (21:00)
[2025-03-07] MEDS ORDERED: cefTRIAXone SODIUM 2,000 MG/50 ML BAG IV SCH (05:30)
[2025-03-07] MEDS ORDERED: AZITHROMYCIN 250 MG TAB PO SCH (09:00)
--- NOTE | 2025-03-09 09:06 | Electrocardiogram Report ---
Test Reason : Blood Pressure : */* mmHG Vent. Rate : 92 BPM Atrial Rate : 92 BPM P-R Int : 160 ms QRS Dur : 94 ms QT Int : 408 ms P-R-T Axes : 32 64 -3 degrees QTcB Int : 504 ms Normal sinus rhythm Cannot rule out Inferior infarct , age undetermined Prolonged QT Abnormal ECG When compared with ECG of 06-Mar-2025 04:12, (unconfirmed) Minimal criteria for Inferior infarct are now Present Non-specific change in ST segment in Inferior leads T wave inversion less evident in Lateral leads Confirmed by Fredo Moffett ([id number]) on 03/09/2025 9:05:50 AM Referred By: REFERRED SELF Confirmed By: Fredo Moffett
--- NOTE | 2025-03-09 09:08 | Electrocardiogram Report ---
Test Reason : Blood Pressure : */* mmHG Vent. Rate : 87 BPM Atrial Rate : 87 BPM P-R Int : 174 ms QRS Dur : 98 ms QT Int : 396 ms P-R-T Axes : -28 -4 270 degrees QTcB Int : 476 ms Normal sinus rhythm Left ventricular hypertrophy with repolarization abnormality ( Sokolow-Shafer ) Abnormal ECG When compared with ECG of 06-Sep-2017 15:02, Questionable change in QRS axis ST now depressed in Lateral leads T wave inversion now evident in Inferior leads T wave inversion now evident in Anterolateral leads Confirmed by Fredo Moffett ([id number]) on 03/09/2025 9:08:26 AM Referred By: REFERRED SELF Confirmed By: Fredo Moffett
--- NOTE | 2025-03-10 11:38 | Cardiac Catheterization ---
[facility] Data: [facility] Cardiac Status Clinical evaluation leading to the procedure CAD Presenation: Non STEMI Anginal Classification: CCS IV Heart Failure: NYHA Class: CCS III Cardiogenic Shock within 24 Hours: No Cardiac Arrest within 24 Hours: No Imaging Studies Past 6 Months: Yes Stress Studies Past 6 Months: No Coronary Anatomy Dominant: Right Left Main (% Stenosis): Distal (80%) LAD (% Stenosis): Mid (Mid to distal 100%) D1 (% Stenosis): Normal (Diffuse less than 30%) D2 (% Stenosis): Ostial (70%) Circumflex (% Stenosis): Normal OM1 (% Stenosis): Mid (40%) OM2 (% Stenosis): Proximal (80 to 90%) RCA (% Stenosis): Proximal (100%) R PDA (% Stenosis): Normal R PL1 (% Stenosis): Normal Diagnostic Physicians Name: Anders Enciso MD, PhD Closure Device Percutaneous Entry Location: Radial Closure Device: Radial Band Recommendations: Medical Therapy and/or Counseling and CABG Cardiac Cath Procedure Full Procedure Date March 10, 2025 Pre-Procedure Diagnosis Pre-Procedure Diagnosis: Non STEMI AUC Score AUC Score: 07 Post-Procedure Diagnosis Post-Procedure Diagnosis: Severe CAD Procedure(s) Performed Procedure(s) Performed: Coronary Angiography Professor Of Kinesiology Anders Enciso MD, PhD Estimated Blood Loss Estimated Blood Loss: Less than 3 cc Medication(s) Medication(s): Fentanyl, Heparin, Lidocaine 1%, Nicardipine, Nitroglycerin and Versed Summary of Findings Brief description: Patient was brought to the cardiac catheterization suite where he was shaved and prepped in a sterile fashion. Sedated using IV Versed and fentanyl. Soft tissues of the right wrist were anesthetized using 2 mL of 1% Xylocaine and the right radial artery was accessed using a modified Seldinger technique. A 6 Italian radial artery glide sheath was placed. Patient was provided anticoagulation with IV heparin and antispasmodics including nicardipine and nitroglycerin. All catheters were advanced and exchanged over a 0.035 J-tip wire. Left coronary angiography in orthogonal views with a 5 Italian JL 3.5 diagnostic catheter. Right coronary angiography in orthogonal views with a 5 Italian Calder 4 diagnostic catheter. Catheters were removed. Radial artery sheath was removed. Hemostasis was obtained using the TR band. Patient was hemodynamically stable and asymptomatic. He was returned to the recovery area. This ended the case. Coronary angiography findings: HMU-batub-gmcucec vessel which bifurcates into LAD and circumflex. Distal calcification and eccentric up to 80% stenosis. LAD-proximal heavy calcification. LAD provides a large septal branch, a medium caliber first diagonal, and a medium to large caliber second diagonal. Mid LAD also has mild calcification. Early distal LAD is 100% occluded. D1 is medium caliber with diffuse less than 30% stenosis. D2 is medium caliber with ostial greater than 70% stenosis. Distal LAD fills via left to left and right to left collaterals. LBk-ofcii-ivvxqeu vessel traveling in the AV groove. Gives a large branching OM1 which is a mid 40% stenosis. There is a large branching OM 2 with proximal 80 to 90% stenosis. RCA-this is large caliber and dominant. Proximal heavy calcification. Vessel is 100% occluded at the ostium of the RV marginal. The PDA and posterolateral branch fills via krzn-rx-ojhyl collateralization. Summary: 1. Severe multivessel coronary artery disease. 2. Recommend evaluation at tertiary center for surgical versus high risk percutaneous revascularization. 3. Guideline directed medical therapy for secondary prevention of coronary disease to include; low-dose aspirin, high intensity statin therapy, beta- orion, plus or minus RICHIE inhibitor/ARB. Hemodynamics Rest Ao:: 114/71 mmHg Final Ao: 97/50 mmHg LV: Not performed Recommendations Recommendations: Medical Therapy and/or Counseling and CABG Radiation Exposure (mGy) 1087 mGy, fluoroscopy time 5.4 minutes Contrast (mls) 100 cc Anesthesia 2 mg Versed, 75 mcg fentanyl IV. Start 1212.43 end 1228.19 Procedural Complication(s) None Disposition [facility] Holding/Recovery I attest to the content of the Intraoperative Record and any orders documented therein. Any exceptions are noted below. [facility] Card Cath Procedure Codes Cardiac Catheterization Procedure 1: Cardiovascular Cath Procedures: 86894 Coronaries Moderate Sedation Procedure 1: Sedation/Anesthesia: 20191 Mod Sedation by the same physician;Init15 Min Child Age 5 & Up (Initial 15 minutes) PG Care Time/CCT Total # of Minutes Spent Total Time Spent with Patient: Total time spent is greater than 50% in coordination of care (as documented) at patient's floor/unit and/or counseling patient:
== END 2025-03-06 15:56 | disposition short-term general hospital (02) | DRG 280 ==
LOC: ED 03:52 → EDINP 07:04 → 2S 09:48
PROC: CLB.CCO (2025-03-06 10:00)